=== PATIENT | female | born 1950 | race Caucasian/White ===

== ENCOUNTER 2020-05-20 06:14 | Inpatient (IN) | payer MEDICARE, OTHER, SELFPAY ==
[2020-05-20] VITALS (39 sets, daily range): BP systolic 114–162; BP diastolic 55–86; PULSE 74–114; RESP 10–26; TEMP 36.1–37.3; O2SAT 85–99; BMI 25.6; BMI 26.3
--- NOTE | 2020-05-20 06:57 | ED_ITS ---
HPI - Abdominal Pain General Chief Complaint: Abdominal Pain Stated Complaint: Severe Stomach pain Time Seen by Provider: 05/20/20 06:40 Source: patient Mode of arrival: Ambulatory Limitations: no limitations History of Present Illness HPI narrative: The patient presents with a one-week history of lower abdominal pain. Symptoms started at home about 1 week ago, she had just returned from a road trip with her granddaughters. She encountered no one with similar symptoms on the trip of which she is aware. Her family has not been ill. She now has lower abdominal cramping with nausea. She has not have a significant amount of vomiting. She is still eating and drinking, but decreased. There is no discomfort when she is eating. The cramping is in the suprapubic at region. She has some associated low back pain, especially when the symptoms started. The back pain is less at this time. She does have diarrhea, she is still having bowel movements. Her bowel movement has changed. She has small BMs coming out, small balls. She has no evidence of GI bleed. She is not having dysuria, she has intermittent color changes to her urine. She has having normal urine but occasionally rust colored urine out. She has no history of kidney stones. She has no history of renal disease. She has no history of abdominal or pelvic surgeries. She has no chronic GI problems. She is on meds for hypertension and hypothyroidism. She has no history of diabetes, she has no history of vascular disease. She denies fever, chills or sweats with these symptoms. Related Data Previous Rx's Medication Instructions Recorded cephalexin [Keflex] 500 mg PO BID 5 Days #0 cap 10/13/17 Allergies Allergy/AdvReac Type Severity Reaction Status Date / Time No Known Drug Allergies Allergy Verified 05/20/20 12:07 Review of Systems Review of Systems ROS Unobtainable: All systems reviewed & are unremarkable except as noted in HPI and below Constitutional Constitutional: Denies chills, Denies fatigue, Denies fever(s) and Denies weakness Eyes Comments: No complaints ENT Ears, Nose, Mouth, and Throat: Denies neck pain and Denies sore throat Cardiovascular Cardiovascular: Denies chest pain, Denies irregular heart rhythm, Denies lightheadedness, Denies dyspnea and Denies dyspnea on exertion Respiratory Respiratory: Denies cough, Denies dyspnea, Denies dyspnea on exertion and Denies wheezing Gastrointestinal Gastrointestinal: Reports as per HPI, Reports abdominal pain, Reports change in bowel habits, Denies diarrhea, Denies nausea and Denies vomiting Genitourinary Genitourinary: Denies difficulty urinating and Denies dysuria Genitourinary: Denies dysuria Musculoskeletal Musculoskeletal: Denies back pain, Denies neck pain and Denies numbness Integumentary/Breasts Skin/Breast: Denies erythema and Denies rash Neurologic Neurologic: Denies confusion, Denies numbness and Denies weakness Psychiatric Psychiatric: Denies anxiety and Denies confusion Endocrine Endocrine: Denies fatigue and Denies flushing Allergic/Immunologic Allergic/Immunologic: Denies wheezing Patient History Medical History (Updated 05/20/20 @ 13:25 by Fransico Vogel MD) Hypertension (Acute) Hypothyroidism (Acute) Neck discomfort (Inactive) No active medical problems (Inactive) Social History Smoking Status: Never smoker Exam Initial Vital Signs Initial Vital Signs: Vital Signs Temperature 98.3 F 05/20/20 06:20 Pulse Rate 89 05/20/20 06:20 Respiratory Rate 16 05/20/20 06:20 Blood Pressure 135/63 05/20/20 06:20 Pulse Oximetry 99 05/20/20 06:20 Const General: cooperative, healthy appearing and well developed Nutritional Appearance: well nourished [facility] Head: normocephalic and atraumatic Mouth: oral mucosae normal Throat: posterior oropharynx normal Eyes Conjunctivae: conjunctivae normal Sclera: sclerae normal Neck Neck: supple and No lymphadenopathy Chest Chest: normal inspection of the chest Resp Effort & Inspection: normal respiratory effort and able to speak in complete sentences Auscultation: clear to auscultation bilaterally, no rales, no rhonchi and no wheezes Cardio Rate: regular rate Rhythm: regular rhythm Heart Sounds: no click, no gallops, no murmurs and no rubs Pulses: normal peripheral pulses GI Other: Lower abdominal tenderness. Tender in the right lower quadrant and suprapubic area with guarding but no rebound. LLQ tenderness without guarding or rebound. No distention. No masses. Normal bowel sounds. Back/Spine/Pelvis Back: No CVA tenderness Skin General: no rashes or lesions noted and No petechiae Neuro General: patient alert, patient oriented x3, gait normal and no focal motor deficits Speech: speech normal Extrem General: full ROM, no pedal edema and no calf tenderness Psych Appearance: well kempt Mental Status: mental status grossly normal Course Course Course Narrative: CT revealed perforated diverticulitis with abscess. Zosyn was started. She has been receiving Zofran for nausea. She is currently comfortable. Vital status are stable. Surgery, , was consulted. The patient will be admitted for ongoing care. Orders Ordered: ED Orders 05/20/20 06:47 EKG-12 Lead Stat 05/20/20 06:51 Complete Blood Count AUTO DIFF Stat Comprehensive Metabolic Panel Stat Lactate (Lactic Acid) Stat Lipase Stat Troponin I Stat 05/20/20 06:54 Ictotest Urine Stat Urinalysis and Microscopic Stat 05/20/20 07:52 Blood Culture Stat 05/20/20 08:17 CT abdomen pelvis w con Stat Hydromorphone HCl (Dilaudid) 0.5 mg IV Q15MIN PRN PRN Reason: pain Last Admin: 05/20/20 07:00 Dose: 0.5 mg Documented by: DAVID Sodium Chloride (Normal Saline 0.9%) 1,000 mls @ 150 mls/hr IV CONT MOISES Last Admin: 05/20/20 13:07 Dose: 150 mls/hr Documented by: JONAH Discontinued Medications Hydromorphone HCl (Dilaudid) 1 mg IV NOW ONE Stop: 05/20/20 12:02 Last Admin: 05/20/20 12:28 Dose: 1 mg Documented by: JONAH Sodium Chloride (Normal Saline 0.9%) 1,000 mls @ 1,000 mls/hr IV BOLUS ONE Stop: 05/20/20 07:43 Last Infusion: 05/20/20 08:53 Dose: 0 mls/hr Documented by: Admin: 05/20/20 07:00 Dose: 1,000 mls/hr Documented by: DAVID Piperacillin/Tazobactam/Dextrose (Zosyn) 4.5 gm in 100 mls @ 200 mls/hr IV NOW ONE Stop: 05/20/20 12:33 Last Admin: 05/20/20 12:28 Dose: 200 mls/hr Documented by: JONAH Ondansetron HCl (Zofran) 4 mg IV NOW ONE Stop: 05/20/20 06:45 Last Admin: 05/20/20 07:00 Dose: 4 mg Documented by: DAVID Vital Signs Vital signs: Vital Signs - 8 hr 05/20/20 06:20 05/20/20 07:01 05/20/20 07:30 Temperature 98.3 F Pulse Rate 89 89 77 Respiratory Rate 16 Blood Pressure 135/63 Pulse Oximetry 99 99 97 05/20/20 07:31 05/20/20 07:35 05/20/20 08:00 Temperature Pulse Rate 80 82 75 Respiratory Rate Blood Pressure 123/64 124/62 140/60 Pulse Oximetry 96 97 96 05/20/20 08:30 05/20/20 09:01 05/20/20 09:02 Temperature Pulse Rate 80 80 83 Respiratory Rate Blood Pressure 141/65 H 150/70 H Pulse Oximetry 98 98 99 05/20/20 09:25 05/20/20 09:30 05/20/20 09:31 Temperature Pulse Rate 87 80 Respiratory Rate 18 Blood Pressure 121/56 L Pulse Oximetry 95 96 05/20/20 10:01 05/20/20 10:30 05/20/20 10:55 Temperature Pulse Rate 85 74 86 Respiratory Rate Blood Pressure 126/86 126/86 Pulse Oximetry 92 94 97 05/20/20 11:00 05/20/20 11:30 05/20/20 12:00 Temperature Pulse Rate 81 75 80 Respiratory Rate 16 Blood Pressure 123/73 130/63 Pulse Oximetry 95 95 98 05/20/20 12:01 Temperature Pulse Rate 89 Respiratory Rate Blood Pressure 162/76 H Pulse Oximetry 98 MDM - Abdominal Pain Lab Data Result diagrams: 05/20/20 06:51 05/20/20 06:51 Labs: Lab Results 05/20/20 05/20/20 05/20/20 Range/Units 06:51 06:51 06:51 WBC 14.3 H (4.5-11.0) X10^3/uL RBC 4.46 (4.0-5.2) X10^6/uL Hgb 13.1 (12.0-16.0) g/dL Hct 39.3 (36-46) % MCV 88.0 (80-100) fL MCH 29.4 (26-34) PG MCHC 33.4 (30-36) % RDW 13.6 (11.6-14.8) % Plt Count 355 (150-400) X10^3/uL Neut % (Auto) 83.2 H (50-75) % Lymph % (Auto) 9.0 L (25-40) % [place] % (Auto) 7.1 (3-14) % Eos % (Auto) 0.2 L (2-4) % Baso % (Auto) 0.5 (0-2) % Neut # (Auto) 67392 H (7363-8166) /uL Lymph # (Auto) 1300 (2582-9978) /uL [place] # (Auto) 1000 H (0-900) /uL Eos # (Auto) 0 (0-450) /uL Baso # (Auto) 100 (0-100) /uL Sodium 137 (137-145) mmol/L Potassium 3.9 (3.4-5.1) mmol/L Chloride 102 (98-107) mmol/L Carbon Dioxide 26 (22-32) mmol/L BUN 15 (7-17) mg/dL Creatinine 0.87 (0.52-1.04) mg/dL Estimated GFR > 60.0 (>60) mL/min BUN/Creatinine Ratio 17.2 (6-22) Glucose 134 H (80-110) mg/dL Lactate 1.3 (0.7-2.1) mmol/L Calcium 10.1 (8.4-10.2) mg/dL Total Bilirubin 1.0 (0.2-1.3) mg/dL AST 32 (14-36) IU/L ALT 54 H (<35) IU/L Alkaline Phosphatase 310 H (38-126) U/L Troponin I < 0.012 (0.01-0.034) ng/mL Total Protein 7.3 (6.3-8.2) g/dL Albumin 3.8 (3.5-5.0) g/dL Globulin 3.5 (1.7-4.1) g/dL Albumin/Globulin Ratio 1.1 (1.0-2.8) Lipase 28 (23-300) U/L Urine Color Urine Appearance Urine pH (4.5-8.0) Ur Specific [place] (1.000-1.035) Urine Protein (Negative) Urine Glucose (UA) (Negative) g/dL Urine Ketones (NEGATIVE) Urine Occult Blood (Negative) Urine Nitrate (Negative) Urine Bilirubin (NEGATIVE) Ur Bilirubin Confirm (Negative) Urine Urobilinogen (0.2) E.U./dL Ur Leukocyte Esterase (NEGATIVE) Urine RBC (0-5/HPF) Urine WBC (0-5/HPF) Ur Squamous Epith Cells (0-5/HPF) Urine Bacteria (None) Urine Mucus (Negative) Ur Culture Indicated? Micro UA Comment 05/20/20 Range/Units 06:54 WBC (4.5-11.0) X10^3/uL RBC (4.0-5.2) X10^6/uL Hgb (12.0-16.0) g/dL Hct (36-46) % MCV (80-100) fL MCH (26-34) PG MCHC (30-36) % RDW (11.6-14.8) % Plt Count (150-400) X10^3/uL Neut % (Auto) (50-75) % Lymph % (Auto) (25-40) % [place] % (Auto) (3-14) % Eos % (Auto) (2-4) % Baso % (Auto) (0-2) % Neut # (Auto) (4677-0263) /uL Lymph # (Auto) (6829-9293) /uL [place] # (Auto) (0-900) /uL Eos # (Auto) (0-450) /uL Baso # (Auto) (0-100) /uL Sodium (137-145) mmol/L Potassium (3.4-5.1) mmol/L Chloride (98-107) mmol/L Carbon Dioxide (22-32) mmol/L BUN (7-17) mg/dL Creatinine (0.52-1.04) mg/dL Estimated GFR (>60) mL/min BUN/Creatinine Ratio (6-22) Glucose (80-110) mg/dL Lactate (0.7-2.1) mmol/L Calcium (8.4-10.2) mg/dL Total Bilirubin (0.2-1.3) mg/dL AST (14-36) IU/L ALT (<35) IU/L Alkaline Phosphatase (38-126) U/L Troponin I (0.01-0.034) ng/mL Total Protein (6.3-8.2) g/dL Albumin (3.5-5.0) g/dL Globulin (1.7-4.1) g/dL Albumin/Globulin Ratio (1.0-2.8) Lipase (23-300) U/L Urine Color Dark yellow Urine Appearance Clear Urine pH 5.5 (4.5-8.0) Ur Specific [place] 1.025 (1.000-1.035) Urine Protein 1+ H (Negative) Urine Glucose (UA) Negative (Negative) g/dL Urine Ketones 1+ H (NEGATIVE) Urine Occult Blood 1+ H (Negative) Urine Nitrate Negative (Negative) Urine Bilirubin 1+ H (NEGATIVE) Ur Bilirubin Confirm Negative (Negative) Urine Urobilinogen 0.2 (0.2) E.U./dL Ur Leukocyte Esterase Negative (NEGATIVE) Urine RBC 1-5/hpf (0-5/HPF) Urine WBC 5-10/hpf H (0-5/HPF) Ur Squamous Epith Cells 10-30 /hpf H (0-5/HPF) Urine Bacteria Moderate (10-30) H (None) Urine Mucus 3+ H (Negative) Ur Culture Indicated? Culture not indicate Micro UA Comment Imaging Data CT scan - abdomen/pelvis: Radiologist's Impression: [phone] Fransico Vogel MD Find Patient Imaging - Nereida Ruby 69 F 1950 ACTIVITY DATE EXAM STATUS AUTHOR 05/20/20 08:17 Signed Call,[place] [address] CT Scan Report Signed Patient: Jacque RubyR#: [id number] : 9Acct:[id number] Age/Sex: 69 / FDate of Service: 05/20/20 Loc: ED Accession Number: [id number] Procedure: CT abdomen pelvis w con Ordering Provider: Nicole Vallejo MD PROCEDURE: CT ABDOMEN PELVIS W CON INDICATIONS: severe abd pain TECHNIQUE: After the administration of oral and intravenous contrast, 5 mm thick sections acquired from the diaphragms to the symphysis. 5 mm thick coronal and sagittal reformats were performed. For radiation dose reduction, the following was used: automated exposure control, adjustment of mA and/or kV according to patient size. COMPARISON: None. FINDINGS: Image quality: Excellent. ABDOMEN: Lung bases: Lung bases are clear. Heart size is normal. Solid organs: Liver is normal in size. Probable hepatic steatosis. Gallbladder is unremarkable. Biliary system is non-dilated. Pancreas enhances normally. Spleen is normal in size and enhancement. No adrenal nodules. Kidneys are normal in size and enhancement, without hydronephrosis. There is a 7 mm calculus in the left renal pelvis, (4/40). This does not appear to be obstructive. Peritoneum and bowel: A bilobed extraluminal fluid collection in the midline pelvis measuring 5.8 x 4.9 x 4.7 cm, estimated volume of 69 cc; and left paramedian pelvis adjacent to the sigmoid colon measuring 3.1 x 2.9 x 2.3 cm, estimated volume of 11 cc. The larger component of this collection appears to be walled off. There is gas within these collections. There is extensive surrounding inflammatory change. The adjacent loops of small bowel are dilated. The abscess abuts the urinary bladder. There is a small amount of scattered free fluid in the abdomen and pelvis. There is sigmoid colon diverticuli. The appendix is normal in caliber. Stomach is within normal limits. Nodes and vessels: No retroperitoneal or mesenteric adenopathy. Aorta and inferior vena cava are normal in caliber. Miscellaneous: No ventral hernias. PELVIS: Genitourinary: Bladder is partially distended. The abscess abuts the urinary bladder. No gas in the urinary bladder. The uterus is absent. Miscellaneous: No inguinal hernias or adenopathy. Bones: No suspicious bony lesions. No vertebral body compression fractures. IMPRESSION: 1. Bilobed extraluminal fluid collection in the pelvis measuring 5.8 cm and 3.1 cm containing gas and with extensive surrounding inflammatory change. Findings consistent with a moderate sized abscess. Suspect that this abscess is due to diverticuli tis and small sigmoid colonic perforation. 2. Dilated loops of small bowel in the lower abdomen. This is favored to be due to ileus. Additional incidental findings: Non-obstructing left kidney stone measuring 7 mm. Probable hepatic steatosis. Dictated by: Shalom Harrell M.D. on 05/20/2020 at 9:08 Approved by: Shalom Harrell M.D. on 05/20/2020 at 9:24 Critical Care Time Critical Care Time Critical Care Time: Yes Total Critical Care Time: 50 Attestation: Care included initial assessment, multiple clinical decisions, evaluation of lab, EKG and radiology data, review the data with the patient and eventually consultation with surgery. Discharge Plan Departure Patient Disposition: Admitted to Surgery Clinical Impression: Diverticulitis of intestine with perforation and abscess Qualifiers: Diverticulitis site: unspecified part of intestinal tract Diverticulitis bleeding: without bleeding Qualified Code(s): K57.80 - Diverticulitis of intestine, part unspecified, with perforation and abscess without bleeding Admit Date/Time: 05/20/20 12:34 Admit Provider: Lesley Parra
[2020-05-20] MEDS: ONDANSETRON 4 MG/2 ML INJ IV (07:00)
[2020-05-20] MEDS: HYDROMORPHONE 0.5 MG INJ IV (07:00)
[2020-05-20] MEDS: SODIUM CHLORIDE 0.9% 1,000 ML 1000 ML IV (07:00)
[2020-05-20 07:02] LABS: Appearance Urine UA CLEAR; Bilirubin Urine UA 1+ (NEGATIVE); Glucose Urine UA NEGATIVE (Negative); Ketones Urine UA 1+ (NEGATIVE); Leukocyte Esterase Urine UA NEGATIVE (NEGATIVE); Nitrite Urine UA NEGATIVE (Negative); Occult Blood Urine UA 1+ (Negative); Protein Urine UA 1+ (Negative); Specific Gravity Urine UA 1.025 (1.000-1.035); Urobilinogen Urine UA 0.2 E.U./dL (0.2)
[2020-05-20 07:03] LABS: Color Urine UA Dark Yellow; pH Urine UA 5.5 (4.5-8.0)
[2020-05-20 07:04] LABS: Add Manual Diff / Slide Review NO; Basophils Absolute Auto 100 /uL (0-100); Basophils Percent Auto 0.5 % (0-2); Eosinophils Absolute Auto 0 /uL (0-450); Eosinophils Percent Auto 0.2 % (2-4); Hematocrit 39.3 % (36-46); Hemoglobin 13.1 g/dL (12.0-16.0); Lymphocytes Absolute Auto 1300 /uL (1100-4500); Mean Corpuscular HGB Conc 33.4 % (30-36); Mean Corpuscular Hemoglobin 29.4 PG (26-34); Monocytes Absolute Auto 1000 /uL (0-900); Monocytes Percent Auto 7.1 % (3-14); Neutrophils Absolute Auto 11900 /uL (1500-7000); Neutrophils Percent Auto 83.2 % (50-75); Platelet Count 355 X10^3/uL (150-400); Red Blood Cell Count 4.46 X10^6/uL (4.0-5.2); Red Cell Distribution Width 13.6 % (11.6-14.8); White Blood Cell Count 14.3 X10^3/uL (4.5-11.0)
[2020-05-20 07:09] LABS: Alanine Aminotransferase 54 IU/L (<35); Albumin 3.8 g/dL (3.5-5.0); Albumin Globulin Ratio 1.1 (1.0-2.8); Alkaline Phosphatase 310 U/L (38-126); Aspartate Aminotransferase 32 IU/L (14-36); BUN Creatinine Ratio 17.2 (6-22); Blood Urea Nitrogen 15 mg/dL (7-17); Calcium 10.1 mg/dL (8.4-10.2); Carbon Dioxide 26 mmol/L (22-32); Chloride 102 mmol/L (98-107); Estimated Glomerular Filt Rate > 60.0 mL/min (>60); Globulin 3.5 g/dL (1.7-4.1); Glucose 134 mg/dL (80-110); HEMOLYSIS < 15 (0-50); Lipase 28 U/L (23-300); Potassium 3.9 mmol/L (3.4-5.1); Sodium 137 mmol/L (137-145); Total Protein 7.3 g/dL (6.3-8.2)
[2020-05-20 07:10] LABS: Lactate (Lactic Acid) 1.3 mmol/L (0.7-2.1)
[2020-05-20 07:13] LABS: Bacteria Urine Moderate (10-30); Ictotest Urine Negative (Negative); Mucus Urine 3+ (Negative); RBC Urine 1-5/HPF (0-5/HPF); Squamous Epithelial Cell Urine 10-30 /HPF (0-5/HPF); WBC Urine 5-10/HPF (0-5/HPF)
[2020-05-20 07:21] LABS: Troponin I < 0.012 ng/mL (0.01-0.034)
--- NOTE | 2020-05-20 07:59 | PC.NURSE ---
Neville leaving for a bit, can be reached at [phone] if needed prior to his return.
--- NOTE | 2020-05-20 08:17 | DI.CT.S_ITS ---
PROCEDURE: CT ABDOMEN PELVIS W CON INDICATIONS: severe abd pain TECHNIQUE: After the administration of oral and intravenous contrast, 5 mm thick sections acquired from the diaphragms to the symphysis. 5 mm thick coronal and sagittal reformats were performed. For radiation dose reduction, the following was used: automated exposure control, adjustment of mA and/or kV according to patient size. COMPARISON: None. FINDINGS: Image quality: Excellent. ABDOMEN: Lung bases: Lung bases are clear. Heart size is normal. Solid organs: Liver is normal in size. Probable hepatic steatosis. Gallbladder is unremarkable. Biliary system is non-dilated. Pancreas enhances normally. Spleen is normal in size and enhancement. No adrenal nodules. Kidneys are normal in size and enhancement, without hydronephrosis. There is a 7 mm calculus in the left renal pelvis, (4/40). This does not appear to be obstructive. Peritoneum and bowel: A bilobed extraluminal fluid collection in the midline pelvis measuring 5.8 x 4.9 x 4.7 cm, estimated volume of 69 cc; and left paramedian pelvis adjacent to the sigmoid colon measuring 3.1 x 2.9 x 2.3 cm, estimated volume of 11 cc. The larger component of this collection appears to be walled off. There is gas within these collections. There is extensive surrounding inflammatory change. The adjacent loops of small bowel are dilated. The abscess abuts the urinary bladder. There is a small amount of scattered free fluid in the abdomen and pelvis. There is sigmoid colon diverticuli. The appendix is normal in caliber. Stomach is within normal limits. Nodes and vessels: No retroperitoneal or mesenteric adenopathy. Aorta and inferior vena cava are normal in caliber. Miscellaneous: No ventral hernias. PELVIS: Genitourinary: Bladder is partially distended. The abscess abuts the urinary bladder. No gas in the urinary bladder. The uterus is absent. Miscellaneous: No inguinal hernias or adenopathy. Bones: No suspicious bony lesions. No vertebral body compression fractures. IMPRESSION: 1. Bilobed extraluminal fluid collection in the pelvis measuring 5.8 cm and 3.1 cm containing gas and with extensive surrounding inflammatory change. Findings consistent with a moderate sized abscess. Suspect that this abscess is due to diverticulitis and small sigmoid colonic perforation. 2. Dilated loops of small bowel in the lower abdomen. This is favored to be due to ileus. Additional incidental findings: Non-obstructing left kidney stone measuring 7 mm. Probable hepatic steatosis. Dictated by: Shalom Harrell M.D. on 05/20/2020 at 9:08 Approved by: Shalom Harrell M.D. on 05/20/2020 at 9:24
[2020-05-20] MEDS: HYDROMORPHONE 1 MG INJ IV (12:28)
[2020-05-20] MEDS: PIPERACILLIN-TAZO 4.5 GM/100 ML FROZ.PIGGY IV (12:28)
--- NOTE | 2020-05-20 12:56 | P.HP_ITS ---
History of Present Illness History of Present Illness Date Patient Seen: 05/20/20 Time Patient Seen: 12:57 Chief complaint: Severe Stomach pain Narrative: This is a 69-year-old woman with history of hypertension, hypothyroid, and diverticulosis, who came into the ER today after 1 week of abdominal pain, which became much more severe last night. Her pain initially was in the lower abdomen, predominantly on the left. Today she started to notice more severe mid abdominal pain and lower abdominal pain. In the ER she was found to have an elevated white blood cell count, and a CT scan which showed an interloop abscess between loops of small bowel which appeared to be emanating from the sigmoid colon, consistent with perforated sigmoid diverticulitis and a contained abscess between loops of bowel. The radiologist was unable to drain this percutaneously, and so I was consulted for surgical drainage and management. The patient says her last colonoscopy was 1 year ago, and she was told she just had diverticulosis. She has from time to time had diverticulitis symptoms, which is usually managed at home by drinking water and eating a bland diet, without antibiotics. She continues to pass stool today, which is mostly diarrhea. She vomited last night after eating. She has had clear liquids today including oral contrast for her CT scan. ROS: Constitutional: Denies chills, Denies fatigue, Denies fever(s) and Denies weakness Ears, Nose, Mouth, and Throat: Denies neck pain and Denies sore throat Cardiovascular: Denies chest pain, Denies irregular heart rhythm, Denies lightheadedness, Denies dyspnea and Denies dyspnea on exertion Respiratory: Denies cough, Denies dyspnea, Denies dyspnea on exertion and Denies wheezing Gastrointestinal: Reports as per HPI, Reports abdominal pain, Reports change in bowel habits, Denies diarrhea, Denies nausea and Denies vomiting Genitourinary: Denies difficulty urinating and Denies dysuria Musculoskeletal: Denies back pain, Denies neck pain and Denies numbness Skin/Breast: Denies erythema and Denies rash Neurologic: Denies confusion, Denies numbness and Denies weakness Psychiatric: Denies anxiety and Denies confusion Endocrine: Denies fatigue and Denies flushing Allergic/Immunologic: Denies wheezing PE: GENERAL: Alert, mild distress. Appears stated age. Answers questions promptly and appropriately. Vital signs noted. HENT: Normocephalic, atraumatic. Hearing intact. EYES: Conjunctiva pink, sclera white, no periorbital swelling. CARDIOVASCULAR: Regular rate. No pedal edema. RESPIRATORY: Non-tachypneic, breathing comfortably on room air. GASTROINTESTINAL: Abdomen soft, mildly distended, moderately tender to palpation in bilateral lower quadrants left greater than right GENITALURINARY: No flank tenderness. MUSCULOSKELETAL: Equal tone and mass bilaterally. SKIN: Warm, dry, soft, appropriate color for ethnicity. No other lesions, rashes, or wounds. NEURO: Alert and Oriented X 3. No gross sensory deficits, or cognitive issues. PSYCH: Appropriate affect and mood. Patient History Medical History (Updated 05/20/20 @ 15:50 by Lesley Parra MD) Hypertension (Acute) Hypothyroidism (Acute) Neck discomfort (Inactive) No active medical problems (Inactive) Family & Social History Safety & Behavioral: Feels Safe in Current Yes Environment Been Physically Hurt or No Threatened By a Person Tobacco & Substance use: Smoking Status Never smoker Substance Use Type does not use Meds Home Medications and Allergies Home Medications Medication Instructions Recorded Confirmed Type amlodipine 2.5 mg PO DAILY 05/20/20 05/20/20 History levothyroxine 88 mcg PO DAILY 05/20/20 05/20/20 History lisinopril 20 mg PO DAILY 05/20/20 05/20/20 History Allergies Allergy/AdvReac Type Severity Reaction Status Date / Time No Known Drug Allergies Allergy Verified 05/20/20 12:07 Exam Vital Signs (past 8 hours): - 05/20/20 06:20 05/20/20 07:01 05/20/20 07:30 Temperature 98.3 F Pulse Rate 89 89 77 Respiratory Rate 16 Blood Pressure 135/63 Pulse Oximetry 99 99 97 05/20/20 07:31 05/20/20 07:35 05/20/20 08:00 Temperature Pulse Rate 80 82 75 Respiratory Rate Blood Pressure 123/64 124/62 140/60 Pulse Oximetry 96 97 96 05/20/20 08:30 05/20/20 09:01 05/20/20 09:02 Temperature Pulse Rate 80 80 83 Respiratory Rate Blood Pressure 141/65 H 150/70 H Pulse Oximetry 98 98 99 05/20/20 09:25 05/20/20 09:30 05/20/20 09:31 Temperature Pulse Rate 87 80 Respiratory Rate 18 Blood Pressure 121/56 L Pulse Oximetry 95 96 05/20/20 10:01 05/20/20 10:30 05/20/20 10:55 Temperature Pulse Rate 85 74 86 Respiratory Rate Blood Pressure 126/86 126/86 Pulse Oximetry 92 94 97 05/20/20 11:00 05/20/20 11:30 05/20/20 12:00 Temperature Pulse Rate 81 75 80 Respiratory Rate 16 Blood Pressure 123/73 130/63 Pulse Oximetry 95 95 98 05/20/20 12:01 Temperature Pulse Rate 89 Respiratory Rate Blood Pressure 162/76 H Pulse Oximetry 98 Oxygen Delivery Method Room Air Objective Imaging CT scan - abdomen: My impression: Contained abscess between loops of small bowel; sigmoid diveritculitis Radiologist's impression: [address] [address] [address] Scan Report Signed Patient: Regino Ruby#: [id number] : 9Acct:[id number] Age/Sex: 69 / FDate of Service: 05/20/20 Loc: ED Accession Number: [id number] Procedure: CT abdomen pelvis w con Ordering Provider: Nicole Vallejo MD PROCEDURE: CT ABDOMEN PELVIS W CON INDICATIONS: severe abd pain TECHNIQUE: After the administration of oral and intravenous contrast, 5 mm thick sections acquired from the diaphragms to the symphysis. 5 mm thick coronal and sagittal reformats were performed. For radiation dose reduction, the following was used: automated exposure control, adjustment of mA and/or kV according to patient size. COMPARISON: None. FINDINGS: Image quality: Excellent. ABDOMEN: Lung bases: Lung bases are clear. Heart size is normal. Solid organs: Liver is normal in size. Probable hepatic steatosis. Gallbladder is unremarkable. Biliary system is non-dilated. Pancreas enhances normally. S pleen is normal in size and enhancement. No adrenal nodules. Kidneys are normal in size and enhancement, without hydronephrosis. There is a 7 mm calculus in the left renal pelvis, (4/40). This does not appear to be obstructive. Peritoneum and bowel: A bilobed extraluminal fluid collection in the midline pelvis measuring 5.8 x 4.9 x 4.7 cm, estimated volume of 69 cc; and left paramedian pel vis adjacent to the sigmoid colon measuring 3.1 x 2.9 x 2.3 cm, estimated volume of 11 cc. The larger component of this collection appears to be walled off. There is gas within these collections. There is extensive surrounding inflammatory change. The adjacent loops of small bowel are dilated. The abscess abuts the urinary bladder. There is a small amount of scattered free fluid in the abdomen and pelvis. There is sigmoid colon diverticuli. The appendix is normal in caliber. Stomach is within normal limits. Nodes and vessels: No retroperitoneal or mesenteric adenopathy. Aorta and inferior vena cava are normal in caliber. Miscellaneous: No ventral hernias. PELVIS: Genitourinary: Bladder is partially distended. The abscess abuts the urinary bladder. No gas in the urinary bladder. The uterus is absent. Miscellaneous: No inguinal hernias or adenopathy. Bones: No suspicious bony lesions. No vertebral body compression fractures. IMPRESSION: 1. Bilobed extraluminal fluid collection in the pelvis measuring 5.8 cm and 3.1 cm containing gas and with extensive surrounding inflammatory change. Findings consistent with a moderate sized abscess. Suspect that this abscess is due to diverticulitis and small sigmoid colonic perforation. 2. Dilated loops of small bowel in the lower abdomen. This is favored to be due to ileus. Additional incidental findings: Non-obstructing left kidney stone measuring 7 mm. Probable hepatic steatosis. Dictated by: Shalom Harrell M.D. on 05/20/2020 at 9:08 Approved by: Shalom Harrell M.D. on 05/20/2020 at 9:24 Labs Result Diagrams: 05/20/20 06:51 05/20/20 06:51 Labs: Laboratory Results - last 24 hr 05/20/20 05/20/20 05/20/20 06:51 06:51 06:51 WBC 14.3 H RBC 4.46 Hgb 13.1 Hct 39.3 MCV 88.0 MCH 29.4 MCHC 33.4 RDW 13.6 Plt Count 355 Neut % (Auto) 83.2 H Lymph % (Auto) 9.0 L [place] % (Auto) 7.1 Eos % (Auto) 0.2 L Baso % (Auto) 0.5 Neut # (Auto) 17269 H Lymph # (Auto) 1300 [place] # (Auto) 1000 H Eos # (Auto) 0 Baso # (Auto) 100 Sodium 137 Potassium 3.9 Chloride 102 Carbon Dioxide 26 BUN 15 Creatinine 0.87 Estimated GFR > 60.0 BUN/Creatinine Ratio 17.2 Glucose 134 H Lactate 1.3 Calcium 10.1 Total Bilirubin 1.0 AST 32 ALT 54 H Alkaline Phosphatase 310 H Troponin I < 0.012 Total Protein 7.3 Albumin 3.8 Globulin 3.5 Albumin/Globulin Ratio 1.1 Lipase 28 Urine Color Urine Appearance Urine pH Ur Specific [place] Urine Protein Urine Glucose (UA) Urine Ketones Urine Occult Blood Urine Nitrate Urine Bilirubin Ur Bilirubin Confirm Urine Urobilinogen Ur Leukocyte Esterase Urine RBC Urine WBC Ur Squamous Epith Cells Urine Bacteria Urine Mucus Ur Culture Indicated? Micro UA Comment 05/20/20 06:54 WBC RBC Hgb Hct MCV MCH MCHC RDW Plt Count Neut % (Auto) Lymph % (Auto) [place] % (Auto) Eos % (Auto) Baso % (Auto) Neut # (Auto) Lymph # (Auto) [place] # (Auto) Eos # (Auto) Baso # (Auto) Sodium Potassium Chloride Carbon Dioxide BUN Creatinine Estimated GFR BUN/Creatinine Ratio Glucose Lactate Calcium Total Bilirubin AST ALT Alkaline Phosphatase Troponin I Total Protein Albumin Globulin Albumin/Globulin Ratio Lipase Urine Color Dark yellow Urine Appearance Clear Urine pH 5.5 Ur Specific [place] 1.025 Urine Protein 1+ H Urine Glucose (UA) Negative Urine Ketones 1+ H Urine Occult Blood 1+ H Urine Nitrate Negative Urine Bilirubin 1+ H Ur Bilirubin Confirm Negative Urine Urobilinogen 0.2 Ur Leukocyte Esterase Negative Urine RBC 1-5/hpf Urine WBC 5-10/hpf H Ur Squamous Epith Cells 10-30 /hpf H Urine Bacteria Moderate (10-30) H Urine Mucus 3+ H Ur Culture Indicated? Culture not indicate Micro UA Comment Assessment & Plan Assessment and plan (1) Hypothyroidism: Status: Acute (2) Hypertension: Status: Acute (3) Diverticulitis of intestine with perforation and abscess: Problem details: This is a 69-year-old woman with history of diverticulosis, hypertension, hypothyroid, who presents with a week of abdominal pain, and an abscess between loops of small bowel found on her CT scan, which appears to be related to perforated diverticulitis. I had a long discussion with the patient and her regarding the possible scenarios that may take place in the operating room. My hope is to drain the abscess, and leave a drain, without doing much more if possible. Explained that it is possible that there may be injured or threatened bowel in the process of trying to open up the abscess, and there may be an ongoing perforation of the colon which needs to be controlled, the may be a need for bowel resection, open surgery, ileostomy, or colostomy. This was all discussed in detail with the patient and her in the ER, and again in the preop area. Risk and benefit of laparoscopic possible open abscess drainage and drain placement, possible bowel resection, possible ostomy. Risk of bleeding, infection, damage to nearby structures, need for additional procedures. The patient desires to proceed with surgery. Plan: To OR for laparoscopic possible open abscess drainage, possible bowel resection possible ostomy Admit to hospital for IV fluids, IV antibiotics, pain control, infection management Qualifiers: Diverticulitis bleeding: without bleeding Diverticulitis site: unspecified part of intestinal tract Qualified Code(s): K57.80 - Diverticulitis of intestine, part unspecified, with perforation and abscess without bleeding Status: Acute (4) H/O: hysterectomy: Status: Acute (5) Hx of ectopic : Status: Acute (6) Diverticulosis: Status: Acute
[2020-05-20] MEDS: SODIUM CHLORIDE 0.9% 1,000 ML 150 ML IV (13:07)
[2020-05-20 13:50] LABS: COVID19 -Nasal RAPID Negative (Negative)
[2020-05-20] MEDS: LACTATED RINGERS 1,000 ML 42 ML IV ×3 (15:32→17:00)
--- NOTE | 2020-05-20 16:17 | SUR.OPER ---
Supine on padded OR bed, head on pillow, safety belt at thigh, left arm padded and tucked at side. Right arm secured on padded arm oard <90 degrees abduction. Legs uncrossed. Padded footboard in place. Tape over blanket to secure lower legs.
[2020-05-20] MEDS: BUPIVACAINE 0.25% W/ EPI 30 ML VIAL INJ (16:24)
--- NOTE | 2020-05-20 17:28 | PM.OP.1 ---
Operative Date/Time/Diagnoses Date of procedure: 05/20/20 Time of procedure: 17:28 Pre-op diagnosis: intraloop abscess, perforated diverticulitis Post-op diagnosis: same Procedure & Clinicians Procedure: Laparoscopic lysis of adhesions, drainage of abscess, drain placement Same procedure as scheduled: Yes Indications: Pelvic abscess trapped between loops of bowel, associated with diverticulitis Surgeon: Lesley Parra Click Yes if Unassisted: Yes Anesthesia Type: General Operative Notes Findings: Large biliopurulent foul smelling abscess in the pelvis trapped between loops of small bowel and bladder Specimen(s): none sent Applied: drain(s) (two 19 round jeffery drains, one in pelvis and one in abdomen) Estimated Blood Loss (mL): 15 Blood products transfused: none Procedure in detail: The patient was brought into the operating room and placed supine on the OR table. Sequential compression devices were placed on both legs and turned on. Appropriate perioperative antibiotics were given prior to the start of surgery. General anesthesia was induced the patient was intubated. Britt catheter was placed sterilely in the bladder. The abdomen was prepped and draped in sterile fashion. Surgical time-out was conducted. Local anesthetic was injected under the skin just superior to the umbilicus and a 5 mm vertical incision was made at this site. The umbilical stalk was grasped with a Holly and elevated. A Veress needle was passed through the fascia into proper position. The position was tested with a saline drop test which was appropriate for intra-abdominal Veress needle placement. The abdomen was then insufflated in the usual fashion. Once insufflated to 15 mm Hg the Veress needle was removed and a 5 mm optical trocar was placed under direct vision using a 5 mm 30 degree scope. Once the camera was inside the abdomen I took a look around. There was no injury from port placement. Two additional ports were placed in a similar fashion in the left lower quadrant and right mid abdomen. There were dense adhesions of omentum to the anterior abdominal wall that were obscuring review of the pelvis. These adhesions were taken down using cautery, and a [place] grasper. Once he adhesions were down, I evaluated the bowel. The small bowel was quite dilated, and there was a loop of small bowel stuck down in the pelvis. Using a closed blunt grasper I gently teased apart the adhesed loop of bowel from the anterior abdominal wall were they were adherent to the bladder. Once I made a gap between the bowel and the abdominal wall copious foul smelling thick green pus came pouring out. I quickly put the suction in and suctioned out all of the purulent fluid. I took down the rest of the adhesed bowel, and revealed the abscess cavity. I suctioned out the purulent rind from the abscess cavity and any remaining signs of infection. I irrigated with 2 L of saline. I did not see a perforation of the colon, but there was clearly a very thickened sigmoid colon just adjacent to the abscess, consistent with diverticulitis, which is the likely source of perforation and purulence, as suspected on the CT scan. I placed a 19 round Jeffery drain through the left 5 mm port site, and positioned it in the pelvis. I removed the port, and secured the drain to the skin with a 3 0 nylon suture. Placed a 2nd drain in the right port site and positioned it higher up in the abdomen adjacent to the rest of the small bowel. I secured this in place with a 3 0 nylon suture. I then released the pneumoperitoneum, and closed the umbilical skin with 3, 3 0 nylon sutures in the skin. This incision was covered with a Band-Aid. The 2 port sites were dressed with 4x4s and secured with tape. This concluded the procedure. At this point the needle sponge and instrument counts were correct. Britt catheter was removed. The patient was awakened from anesthesia and extubated. The patient was transferred to the postanesthesia care unit in stable condition. Complications: none Post-operative Condition: stable Disposition: PACU Plan for aftercare: transfer to ACU, monitor drains, labs, vitals, continue IV antibiotics, advance diet as tolerated, pain control
[2020-05-20] MEDS: HYDROMORPHONE 2 MG INJ IV ×5 (17:31→18:04)
--- NOTE | 2020-05-20 18:18 | SUR.PHASEI ---
Report called to Edwige.
--- NOTE | 2020-05-20 18:50 | SUR.PHASEI ---
Patient transferred to the floor on 2L o2. Report given to Edwige. VS stable. Abdominal dressing clean, dry, intact. Drains patent x2 with serosanguinous fluid. IV saline locked. Spouse present.
[2020-05-20] MEDS: PIPERACILLIN-TAZO 3.375 GM/50 ML FROZ.PIGGY IV (19:08)
[2020-05-20] MEDS: SODIUM CHLORIDE 0.9% 1,000 ML 100 ML IV (19:08)
[2020-05-20] MEDS: OXYCODONE/ACETAMINOPHEN 5/325 TABLET 1 TAB PO (20:52)
[2020-05-20] MEDS: KETOROLAC 15 MG/ML VIAL IV (20:53)
--- NOTE | 2020-05-20 21:06 | PC.NURSE ---
Pt out of bed to BSC. Unable to void. Return to bed. Pain reported 7 of 10. Educated to pain meds. Percocet and Toradol given. Drains emptied. Pt reported noticeable increase in pain with right drain bulb compressed and plugged. Assist to position for comfort. Call light in reach.
[2020-05-20] MEDS: FAMOTIDINE 20 MG/50 ML PIGGYBACK 200 MG IV ×2 (21:34→23:45)
[2020-05-21] MEDS: PIPERACILLIN-TAZO 3.375 GM/50 ML FROZ.PIGGY IV ×4 (01:21→18:59)
[2020-05-21] MEDS: OXYCODONE/ACETAMINOPHEN 5/325 TABLET 1 TAB PO ×3 (01:24→13:19)
[2020-05-21 03:00] VITALS: BP 119/69; PULSE 79; RESP 16; O2SAT 94
[2020-05-21 05:42] LABS: Blood Urea Nitrogen 16 mg/dL (7-17); Calcium 8.6 mg/dL (8.4-10.2); Carbon Dioxide 25 mmol/L (22-32); Chloride 103 mmol/L (98-107); Estimated Glomerular Filt Rate > 60.0 mL/min (>60); Glucose 151 mg/dL (80-110); HEMOLYSIS < 15 (0-50); Magnesium 1.9 mg/dL (1.6-2.3); Phosphorous 4.4 mg/dL (2.8-4.1); Potassium 4.4 mmol/L (3.4-5.1); Sodium 134 mmol/L (137-145)
[2020-05-21 05:58] LABS: Hematocrit 31.6 % (36-46); Hemoglobin 10.6 g/dL (12.0-16.0); Mean Corpuscular HGB Conc 33.6 % (30-36); Mean Corpuscular Hemoglobin 29.6 PG (26-34); Platelet Count 285 X10^3/uL (150-400); Red Blood Cell Count 3.59 X10^6/uL (4.0-5.2); Red Cell Distribution Width 13.6 % (11.6-14.8); White Blood Cell Count 11.2 X10^3/uL (4.5-11.0)
[2020-05-21 06:02] LABS: Add Manual Diff / Slide Review YES
[2020-05-21 07:01] LABS: Neutrophils Absolute Manual 9856 /uL (3000-5900); Total Cells Counted 100
[2020-05-21 07:03] LABS: RBC Morphology See; Toxic Granulation Present
--- NOTE | 2020-05-21 07:17 | P.PN_ITS ---
Subjective Subjective Date Patient Seen: 05/21/20 Time Patient Seen: 07:17 Interval history: No acute events over night. Pt denies nausea. Denies flatus or stool output. Pain is well controlled. Exam Vital Signs (past 8 hours): - 05/20/20 23:35 05/21/20 03:00 Temperature 97.0 F L Pulse Rate 81 79 Respiratory Rate 16 16 Blood Pressure 130/75 119/69 Pulse Oximetry 97 94 Oxygen Delivery Method Room Air Oxygen Flow Rate 0 Narrative Exam Narrative: GENERAL: Alert, smiling, comfortable. Appears stated age. Answers questions promptly and appropriately. Vital signs noted. HENT: Normocephalic, atraumatic. Hearing intact. Oral mucosa is pink and moist. EYES: Conjunctiva pink, sclera white, no periorbital swelling. CARDIOVASCULAR: Regular rate. No pedal edema. RESPIRATORY: Non-tachypneic, breathing comfortably on room air. GASTROINTESTINAL: Abdomen soft and non-distended; appropriate TTP for POD#1, OLAMIDE drains murky serosanguinous output, no bilious or stool like output GENITALURINARY: No flank tenderness. MUSCULOSKELETAL: Equal tone and mass bilaterally. SKIN: Warm, dry, soft, appropriate color for ethnicity. No other lesions, rashes, or wounds. NEURO: Alert and Oriented X 3. No gross sensory deficits, or cognitive issues. PSYCH: Appropriate affect and mood. Objective Labs Result Diagrams: 05/21/20 04:50 05/21/20 04:50 Labs: Laboratory Results - last 24 hr 05/20/20 05/20/20 05/21/20 06:51 12:43 04:50 WBC 11.2 H RBC 3.59 L Hgb 10.6 L Hct 31.6 L MCV 88.0 MCH 29.6 MCHC 33.6 RDW 13.6 Plt Count 285 Neut % (Auto) Not Reportable Lymph % (Auto) Not Reportable [place] % (Auto) Not Reportable Eos % (Auto) Not Reportable Baso % (Auto) Not Reportable Lymph # (Auto) Not Reportable [place] # (Auto) Not Reportable Baso # (Auto) Not Reportable Total Counted 100 Seg Neutrophils % 75.0 H Band Neutrophils % 13.0 H Lymphocytes % (Manual) 9.0 L Monocytes % (Manual) 3.0 Neutrophils # (Manual) 9856 H Toxic Granulation Present H RBC Morphology See Sodium Potassium Chloride Carbon Dioxide BUN Creatinine Estimated GFR BUN/Creatinine Ratio Glucose Calcium Phosphorus Magnesium Troponin I < 0.012 COVID-19 PCR Negative 05/21/20 04:50 WBC RBC Hgb Hct MCV MCH MCHC RDW Plt Count Neut % (Auto) Lymph % (Auto) [place] % (Auto) Eos % (Auto) Baso % (Auto) Lymph # (Auto) [place] # (Auto) Baso # (Auto) Total Counted Seg Neutrophils % Band Neutrophils % Lymphocytes % (Manual) Monocytes % (Manual) Neutrophils # (Manual) Toxic Granulation RBC Morphology Sodium 134 L Potassium 4.4 Chloride 103 Carbon Dioxide 25 BUN 16 Creatinine 0.84 Estimated GFR > 60.0 BUN/Creatinine Ratio 19.0 Glucose 151 H Calcium 8.6 Phosphorus 4.4 H Magnesium 1.9 Troponin I COVID-19 PCR Assessment & Plan Assessment and plan (1) Diverticulitis of intestine with perforation and abscess: Problem details: This is a 69-year-old woman with history of diverticulosis, hypertension, hypothyroid, who presents with a week of abdominal pain, and an abscess between loops of small bowel found on her CT scan, which appears to be related to perforated diverticulitis. I had a long discussion with the patient and her regarding the possible scenarios that may take place in the operating room. My hope is to drain the abscess, and leave a drain, without doing much more if possible. Explained that it is possible that there may be injured or threatened bowel in the process of trying to open up the abscess, and there may be an ongoing perforation of the colon which needs to be controlled, the may be a need for bowel resection, open surgery, ileostomy, or colostomy. This was all discussed in detail with the patient and her in the ER, and again in the preop area. Risk and benefit of laparoscopic possible open abscess drainage and drain tobias cement, possible bowel resection, possible ostomy. Risk of bleeding, infection, damage to nearby structures, need for additional procedures. The patient desires to proceed with surgery. Plan: To OR for laparoscopic possible open abscess drainage, possible bowel resection possible ostomy Admit to hospital for IV fluids, IV antibiotics, pain control, infection management Qualifiers: Diverticulitis bleeding: without bleeding Diverticulitis site: unspecified part of intestinal tract Qualified Code(s): K57.80 - Diverticulitis of intestine, part unspecified, with perforation and abscess without bleeding Status: Acute (2) H/O: hysterectomy: Status: Acute (3) Diverticulosis: Status: Acute (4) Hypothyroidism: Status: Acute (5) Hypertension: Status: Acute Assessment & Plan narrative: POD#1 s/p laparoscopic drainage and lavage for perforated diverticulitis with abscess. Drains appear serosanguinous. Plan: PO clears ambulate Drain management IV abx DVT ppx GI ppx home meds PRN pain and antiemetic meds COVID-19 COVID-19 status: Negative Result date/Date tested (Pos, Neg/Pending): 05/20/20 Time Spent With Patient Time with patient: 15-24 minutes Quality VTE Deep Vein Thrombosis/Pulmonary Embolism Present on Admission: No
[2020-05-21] MEDS: LEVOTHYROXINE 88 MCG TABLET PO (07:30)
[2020-05-21] MEDS: MAGNESIUM SULFATE 2 GM/50 ML PIGGYBACK IV (07:32)
[2020-05-21] MEDS: SODIUM CHLORIDE 0.9% 1,000 ML 100 ML IV ×2 (07:39→21:50)
[2020-05-21 07:46] VITALS: BP 108/62; PULSE 72; RESP 18; TEMP 36.5; O2SAT 99
[2020-05-21] MEDS: KETOROLAC 15 MG/ML VIAL IV ×2 (08:23→20:20)
[2020-05-21] MEDS: HEPARIN 5,000 UNIT/ML VIAL 5000 UNIT SUBCUT ×2 (08:25→20:21)
[2020-05-21] MEDS: FAMOTIDINE 20 MG/50 ML PIGGYBACK 200 MG IV ×2 (11:32→23:56)
--- NOTE | 2020-05-21 11:44 | CM.DANOTE ---
DCP: Case received, EMR reviewed and met with patient. Introduced self and role. Was able to meet with patient in her room and obtain information regarding her baseline activity level, health, and living situation. DCP assessment completed with information currently available. Patient is a 69 year old female who admitted yesterday afternoon to the care of the hospitalist/surgical team. PCP: Dr. Garrison. Payer: confirmed: Medicare/[facility]. Patient came to the hospital via private vehicle secondary to abdominal pain. Patient holds diagnosis of perforated diverticulitis with abscess. Patient had surgical procedure yesterday, consisting of a laparoscopic lysis of adhesions. Patient has history of diverticulosis. Met with patient in her room. She was sitting up in her chair next to her bed, alert and oriented. She resides in [place] with her spouse, Neville. She is independent at baseline. Patient indicated that she had recently come back from a road trip in [facility], since her grandaughter will be starting school there in the fall. She mentioned tht the symptoms occurred after she came back from the trip. P: DCP to continue to follow. Patient should be able to go home when she is medically stable. Saira Cox, KAREEN/Affirmative Action Officer
[2020-05-21 12:02] VITALS: PULSE 74; RESP 18; TEMP 36.8; O2SAT 92
[2020-05-21 16:00] VITALS: BP 113/66; PULSE 69; RESP 16; TEMP 36.5; O2SAT 94
[2020-05-21 19:30] VITALS: BP 137/71; PULSE 71; RESP 17; TEMP 36.6; O2SAT 94
[2020-05-22 00:01] VITALS: BP 111/60; PULSE 63; RESP 20; TEMP 36.4; O2SAT 92
[2020-05-22] MEDS: PIPERACILLIN-TAZO 3.375 GM/50 ML FROZ.PIGGY IV ×3 (00:31→12:36)
[2020-05-22] MEDS: KETOROLAC 15 MG/ML VIAL IV ×3 (04:19→18:03)
[2020-05-22 04:42] VITALS: BP 107/55; PULSE 60; RESP 18; TEMP 35.9; O2SAT 91
[2020-05-22 05:35] LABS: Add Manual Diff / Slide Review NO; Basophils Absolute Auto 0 /uL (0-100); Basophils Percent Auto 0.1 % (0-2); Eosinophils Absolute Auto 0 /uL (0-450); Eosinophils Percent Auto 0.1 % (2-4); Hematocrit 29.8 % (36-46); Hemoglobin 9.9 g/dL (12.0-16.0); Lymphocytes Absolute Auto 1500 /uL (1100-4500); Lymphocytes Percent Auto 10.6 % (25-40); Mean Corpuscular HGB Conc 33.2 % (30-36); Mean Corpuscular Hemoglobin 29.3 PG (26-34); Mean Corpuscular Volume 88.4 fL (80-100); Monocytes Absolute Auto 600 /uL (0-900); Monocytes Percent Auto 4.1 % (3-14); Neutrophils Absolute Auto 11700 /uL (1500-7000); Neutrophils Percent Auto 85.1 % (50-75); Platelet Count 305 X10^3/uL (150-400); Red Blood Cell Count 3.37 X10^6/uL (4.0-5.2); Red Cell Distribution Width 13.7 % (11.6-14.8); White Blood Cell Count 13.8 X10^3/uL (4.5-11.0)
[2020-05-22 05:39] LABS: BUN Creatinine Ratio 18.5 (6-22); Blood Urea Nitrogen 17 mg/dL (7-17); Calcium 8.4 mg/dL (8.4-10.2); Carbon Dioxide 25 mmol/L (22-32); Chloride 110 mmol/L (98-107); Estimated Glomerular Filt Rate > 60.0 mL/min (>60); Glucose 98 mg/dL (80-110); HEMOLYSIS < 15 (0-50); Magnesium 2.4 mg/dL (1.6-2.3); Phosphorous 2.6 mg/dL (2.8-4.1); Potassium 4.3 mmol/L (3.4-5.1); Sodium 137 mmol/L (137-145)
[2020-05-22] MEDS: LEVOTHYROXINE 88 MCG TABLET PO (06:24)
[2020-05-22 09:09] VITALS: BP 123/59; PULSE 65; RESP 16; TEMP 36.7; O2SAT 95
[2020-05-22] MEDS: SODIUM CHLORIDE 0.9% 1,000 ML 100 ML IV (09:40)
[2020-05-22] MEDS: HEPARIN 5,000 UNIT/ML VIAL 5000 UNIT SUBCUT (09:40)
[2020-05-22] MEDS: FAMOTIDINE 20 MG/50 ML PIGGYBACK 200 MG IV ×2 (11:55→23:44)
--- NOTE | 2020-05-22 15:26 | PM.PN.1 ---
Subjective Subjective Date Patient Seen: 05/22/20 Time Patient Seen: 15:26 Interval history: No acute events overnight. The patient is passing flatus. Pain is controlled with Toradol. Exam Vital Signs (past 8 hours): - 05/22/20 09:09 Temperature 98.0 F Pulse Rate 65 Respiratory Rate 16 Blood Pressure 123/59 L Pulse Oximetry 95 Oxygen Delivery Method Room Air Oxygen Flow Rate 0 Narrative Exam Narrative: GENERAL: Alert, smiling, comfortable. Appears stated age. Answers questions promptly and appropriately. Vital signs noted. HENT: Normocephalic, atraumatic. Hearing intact. Oral mucosa is pink and moist. EYES: Conjunctiva pink, sclera white, no periorbital swelling. CARDIOVASCULAR: Regular rate. No pedal edema. RESPIRATORY: Non-tachypneic, breathing comfortably on room air. GASTROINTESTINAL: Abdomen soft and non-distended; appropriate TTP for POD#2, OLAMIDE drains murky serosanguinous output, no bilious or stool like output GENITALURINARY: No flank tenderness. MUSCULOSKELETAL: Equal tone and mass bilaterally. SKIN: Warm, dry, soft, appropriate color for ethnicity. No other lesions, rashes, or wounds. NEURO: Alert and Oriented X 3. No gross sensory deficits, or cognitive issues. PSYCH: Appropriate affect and mood. Objective Labs Result Diagrams: 05/22/20 04:40 05/22/20 04:40 Labs: Laboratory Results - last 24 hr 05/22/20 05/22/20 04:40 04:40 WBC 13.8 H RBC 3.37 L Hgb 9.9 L Hct 29.8 L MCV 88.4 MCH 29.3 MCHC 33.2 RDW 13.7 Plt Count 305 Neut % (Auto) 85.1 H Lymph % (Auto) 10.6 L [place] % (Auto) 4.1 Eos % (Auto) 0.1 L Baso % (Auto) 0.1 Neut # (Auto) 33130 H Lymph # (Auto) 1500 [place] # (Auto) 600 Eos # (Auto) 0 Baso # (Auto) 0 Sodium 137 Potassium 4.3 Chloride 110 H Carbon Dioxide 25 BUN 17 Creatinine 0.92 Estimated GFR > 60.0 BUN/Creatinine Ratio 18.5 Glucose 98 Calcium 8.4 Phosphorus 2.6 L D Magnesium 2.4 H Assessment & Plan Assessment and plan (1) Diverticulitis of intestine with perforation and abscess: Problem details: This is a 69-year-old woman with history of diverticulosis, hypertension, hypothyroid, who presents with a week of abdominal pain, and an abscess between loops of small bowel found on her CT scan, which appears to be related to perforated diverticulitis. I had a long discussion with the patient and her regarding the possible scenarios that may take place in the operating room. My hope is to drain the abscess, and leave a drain, without doing much more if possible. Explained that it is possible that there may be injured or threatened bowel in the process of trying to open up the abscess, and there may be an ongoing perforation of the colon which needs to be controlled, the may be a need for bowel resection, open surgery, ileostomy, or colostomy. This was all discussed in detail with the patient and her in the ER, and again in the preop area. Risk and benefit of laparoscopic possible open abscess drainage and drain placement, possible bowel resection, possible ostomy. Risk of bleeding, infection, damage to nearby structures, need for additional procedures. The patient desires to proceed with surgery. Plan: To OR for laparoscopic possible open abscess drainage, possible bowel resection possible ostomy Admit to hospital for IV fluids, IV antibiotics, pain control, infection management Qualifiers: Diverticulitis bleeding: without bleeding Diverticulitis site: unspecified part of intestinal tract Qualified Code(s): K57.80 - Diverticulitis of intestine, part unspecified, with perforation and abscess without bleeding Status: Acute (2) H/O: hysterectomy: Status: Acute (3) Diverticulosis: Status: Acute (4) Hypothyroidism: Status: Acute (5) Hypertension: Status: Acute Assessment & Plan narrative: POD#2 s/p laparoscopic drainage and lavage for perforated diverticulitis with abscess. Drains appear serosanguinous. The patient's white count today to 13.8. She is not having any fevers, her incisions look good, her drain outputs looks serosanguineous. We will advance her to full liquid diet, and consider repeating CT scan of her white count continues to go up. I will switch her antibiotics to Cipro and Flagyl today. Plan: Advanced diet to fulls ambulate Drain management IV abx--changed to Cipro Flagyl DVT ppx GI ppx home meds PRN pain and antiemetic meds COVID-19 COVID-19 status: Negative Result date/Date tested (Pos, Neg/Pending): 05/20/20 Time Spent With Patient Time with patient: 15-24 minutes Quality VTE Deep Vein Thrombosis/Pulmonary Embolism Present on Admission: No
[2020-05-22 15:30] VITALS: BP 102/49; PULSE 67; RESP 18; TEMP 37.1; O2SAT 93
--- NOTE | 2020-05-22 16:08 | PC.NURSE ---
Evening shift note A/O x3, laying in bed with eyes closed, rouses to voice, VSS. Introduced self, assessed pt, noted that dressings around jeffery drains (bilateral) were dirty, changed dressings. Pt tolerated dressing change well, denies pain at this time. Bed low and locked, call light within reach, will continue to monitor.
[2020-05-22] MEDS: CIPROFLOXACIN 400 MG/200 ML PIGGYBACK 200 MG IV (16:54)
[2020-05-22] MEDS: OXYCODONE/ACETAMINOPHEN 5/325 TABLET 1 TAB PO (18:03)
[2020-05-22] MEDS: metroNIDAZOLE 500 MG/100 ML PIGGYBACK 100 MG IV (18:07)
[2020-05-22] MEDS: diphenhydrAMINE 50 MG/ML VIAL 25 MG IV (18:12)
[2020-05-22 20:20] VITALS: BP 110/65; PULSE 60; RESP 16; TEMP 36.8; O2SAT 92
[2020-05-23 00:03] VITALS: BP 117/61; PULSE 62; RESP 20; TEMP 36.2; O2SAT 92
[2020-05-23] MEDS: metroNIDAZOLE 500 MG/100 ML PIGGYBACK 100 MG IV ×3 (00:08→11:44)
[2020-05-23] MEDS: KETOROLAC 15 MG/ML VIAL IV ×2 (00:15→05:46)
[2020-05-23] MEDS: CIPROFLOXACIN 400 MG/200 ML PIGGYBACK 200 MG IV (04:05)
[2020-05-23 04:25] VITALS: BP 139/67; PULSE 68; RESP 20; TEMP 35.8; O2SAT 92
[2020-05-23 05:13] LABS: Add Manual Diff / Slide Review NO; Basophils Absolute Auto 0 /uL (0-100); Basophils Percent Auto 0.5 % (0-2); Eosinophils Absolute Auto 100 /uL (0-450); Eosinophils Percent Auto 1.1 % (2-4); Hematocrit 28.4 % (36-46); Hemoglobin 9.4 g/dL (12.0-16.0); Lymphocytes Absolute Auto 1700 /uL (1100-4500); Lymphocytes Percent Auto 16.3 % (25-40); Mean Corpuscular HGB Conc 32.9 % (30-36); Mean Corpuscular Hemoglobin 29.1 PG (26-34); Mean Corpuscular Volume 88.5 fL (80-100); Monocytes Absolute Auto 500 /uL (0-900); Monocytes Percent Auto 5.1 % (3-14); Neutrophils Absolute Auto 7900 /uL (1500-7000); Platelet Count 330 X10^3/uL (150-400); Red Blood Cell Count 3.21 X10^6/uL (4.0-5.2); White Blood Cell Count 10.3 X10^3/uL (4.5-11.0)
[2020-05-23 05:28] LABS: BUN Creatinine Ratio 16.3 (6-22); Blood Urea Nitrogen 16 mg/dL (7-17); Calcium 8.2 mg/dL (8.4-10.2); Carbon Dioxide 23 mmol/L (22-32); Chloride 109 mmol/L (98-107); Estimated Glomerular Filt Rate 56.1 mL/min (>60); Glucose 107 mg/dL (80-110); HEMOLYSIS < 15 (0-50); Phosphorous 2.6 mg/dL (2.8-4.1); Potassium 3.7 mmol/L (3.4-5.1); Sodium 136 mmol/L (137-145)
[2020-05-23] MEDS: LEVOTHYROXINE 88 MCG TABLET PO (05:46)
[2020-05-23] MEDS: SODIUM CHLORIDE 0.9% FLUSH 10 ML IV (06:03)
--- NOTE | 2020-05-23 07:09 | PM.DS.1 ---
History of Present Illness History of Present Illness Chief complaint: Severe Stomach pain Narrative: This is a 69-year-old woman with history of hypertension, hypothyroid, and diverticulosis, who came into the ER today after 1 week of abdominal pain, which became much more severe last night. Her pain initially was in the lower abdomen, predominantly on the left. Today she started to notice more severe mid abdominal pain and lower abdominal pain. In the ER she was found to have an elevated white blood cell count, and a CT scan which showed an interloop abscess between loops of small bowel which appeared to be emanating from the sigmoid colon, consistent with perforated sigmoid diverticulitis and a contained abscess between loops of bowel. The radiologist was unable to drain this percutaneously, and so I was consulted for surgical drainage and management. The patient says her last colonoscopy was 1 year ago, and she was told she just had diverticulosis. She has from time to time had diverticulitis symptoms, which is usually managed at home by drinking water and eating a bland diet, without antibiotics. She continues to pass stool today, which is mostly diarrhea. She vomited last night after eating. She has had clear liquids today including oral contrast for her CT scan. ROS: Constitutional: Denies chills, Denies fatigue, Denies fever(s) and Denies weakness Ears, Nose, Mouth, and Throat: Denies neck pain and Denies sore throat Cardiovascular: Denies chest pain, Denies irregular heart rhythm, Denies lightheadedness, Denies dyspnea and Denies dyspnea on exertion Respiratory: Denies cough, Denies dyspnea, Denies dyspnea on exertion and Denies wheezing Gastrointestinal: Reports as per HPI, Reports abdominal pain, Reports change in bowel habits, Denies diarrhea, Denies nausea and Denies vomiting Genitourinary: Denies difficulty urinating and Denies dysuria Musculoskeletal: Denies back pain, Denies neck pain and Denies numbness Skin/Breast: Denies erythema and Denies rash Neurologic: Denies confusion, Denies numbness and Denies weakness Psychiatric: Denies anxiety and Denies confusion Endocrine: Denies fatigue and Denies flushing Allergic/Immunologic: Denies wheezing PE: GENERAL: Alert, mild distress. Appears stated age. Answers questions promptly and appropriately. Vital signs noted. HENT: Normocephalic, atraumatic. Hearing intact. EYES: Conjunctiva pink, sclera white, no periorbital swelling. CARDIOVASCULAR: Regular rate. No pedal edema. RESPIRATORY: Non-tachypneic, breathing comfortably on room air. GASTROINTESTINAL: Abdomen soft, mildly distended, moderately tender to palpation in bilateral lower quadrants left greater than right GENITALURINARY: No flank tenderness. MUSCULOSKELETAL: Equal tone and mass bilaterally. SKIN: Warm, dry, soft, appropriate color for ethnicity. No other lesions, rashes, or wounds. NEURO: Alert and Oriented X 3. No gross sensory deficits, or cognitive issues. PSYCH: Appropriate affect and mood. Discharge Providers Provider Date of admission: 05/20/20 12:34 Discharge Date: 05/23/20 Primary care physician: Todd Garrison MD Consults: 05/20/20 18:45 Consult to Discharge Planning Routine Comment: 05/21/20 09:29 Consult to Home Health Routine Comment: Reason For Exam: FWW for home use Discharge provider: Lesley Parra MD Summary Hospital Course Discharge Diagnosis: perforated diverticulitis Hospital Course: Pt came into ER with one week of abdominal pain, and was found to have an abscess between loops of bowel; was taken to OR for drainage and washout. She had gradual return of bowel function, was treated with IV antibiotics, and OLAMIDE drain management. Status at Discharge Cognitive/behavioral status at discharge: at baseline, oriented Functional status at discharge: independent ambulation Overall status at discharge: patient is progressing back to baseline Time Spent with Patient Time spent: Greater than 30 minutes Exam Vital Signs (past 8 hours): - 05/23/20 00:03 05/23/20 04:25 Temperature 97.1 F L 96.5 F L Pulse Rate 62 68 Respiratory Rate 20 20 Blood Pressure 117/61 139/67 Pulse Oximetry 92 92 Oxygen Delivery Method Room Air Oxygen Flow Rate 0 Narrative Exam Narrative: PE: GENERAL: Alert, comfortable. Appears stated age. Answers questions promptly and appropriately. Vital signs noted. HENT: Normocephalic, atraumatic. Hearing intact. Oral mucosa is pink and moist. EYES: Conjunctiva pink, sclera white, no periorbital swelling. CARDIOVASCULAR: Regular rate. No pedal edema. RESPIRATORY: Non-tachypneic, breathing comfortably on room air. GASTROINTESTINAL: Abdomen soft, mildly distended, appropriate TTP for POD#3, OLAMIDE drains serosanguinous GENITALURINARY: No flank tenderness. MUSCULOSKELETAL: Equal tone and mass bilaterally. SKIN: Warm, dry, soft, appropriate color for ethnicity. No other lesions, rashes, or wounds. NEURO: Alert and Oriented X 3. No gross sensory deficits, or cognitive issues. PSYCH: Appropriate mood and affect, normal intellect Objective Imaging CT scan - abdomen: Radiologist's impression: [address] [address] [address] Scan Report Signed Patient: Regino Ruby#: [id number] : 9Acct:[id number] Age/Sex: 69 / FDate of Service: 05/20/20 Loc: ED Accession Number: [id number] Procedure: CT abdomen pelvis w con Ordering Provider: Nicole Vallejo MD PROCEDURE: CT ABDOMEN PELVIS W CON INDICATIONS: severe abd pain TECHNIQUE: After the administration of oral and intravenous contrast, 5 mm thick sections acquired from the diaphragms to the symphysis. 5 mm thick coronal and sagittal reformats were performed. For radiation dose reduction, the following was used: automated exposure control, adjustment of mA and/or kV according to patient size. COMPARISON: None. FINDINGS: Image quality: Excellent. ABDOMEN: Lung bases: Lung bases are clear. Heart size is normal. Solid organs: Liver is normal in size. Probable hepatic steatosis. Gallbladder is unremarkable. Biliary system is non-dilated. Pancreas enhances normally. Spleen is normal in size and enhancement. No adrenal nodules. Kidneys are normal in size and enhancement, without hydronephrosis. There is a 7 mm calculus in the left renal pelvis, (4/40). This does not appear to be obstructive. Peritoneum and bowel: A bilobed extraluminal fluid collection in the midline pelvis measuring 5.8 x 4.9 x 4.7 cm, estimated volume of 69 cc; and left paramedian pelvis adjacent to the sigmoid colon measuring 3.1 x 2.9 x 2.3 cm, estimated volume of 11 cc. The larger component of this collection appears to be walled off. There is gas within these collections. There is extensive surrounding inflammatory change. The adjacent loops of small bowel are dilated. The abscess abuts the urinary bladder. There is a small amount of scattered free fluid in the abdomen and pelvis. There is sigmoid colon diverticuli. The appendix is normal in caliber. Stomach is within normal limits. Nodes and vessels: No retroperitoneal or mesenteric adenopathy. Aorta and inferior vena cava are normal in caliber. Miscellaneous: No ventral hernias. PELVIS: Genitourinary: Bladder is partially distended. The abscess abuts the urinary bladder. No gas in the urinary bladder. The uterus is absent. Miscellaneous: No inguinal hernias or adenopathy. Bones: No suspicious bony lesions. No vertebral body compression fractures. IMPRESSION: 1. Bilobed extraluminal fluid collection in the pelvis measuring 5.8 cm and 3.1 cm containing gas and with extensive surrounding inflammatory change. Findings consistent with a moderate sized abscess. Suspect that this abscess is due to diverticulitis and small sigmoid colonic perforation. 2. Dilated loops of small bowel in the lower abdomen. This is favored to be due to ileus. Additional incidental findings: Non-obstructing left kidney stone measuring 7 mm. Probable hepatic steatosis. Dictated by: Shalom Harrell M.D. on 05/20/2020 at 9:08 Approved by: Shalom Harrell M.D. on 05/20/2020 at 9:24 Labs Result Diagrams: 05/23/20 05:00 05/23/20 05:00 Labs: Laboratory Results - last 24 hr 05/23/20 05/23/20 05:00 05:00 WBC 10.3 RBC 3.21 L Hgb 9.4 L Hct 28.4 L MCV 88.5 MCH 29.1 MCHC 32.9 RDW 14.0 Plt Count 330 Neut % (Auto) 77.0 H Lymph % (Auto) 16.3 L [place] % (Auto) 5.1 Eos % (Auto) 1.1 L Baso % (Auto) 0.5 Neut # (Auto) 7900 H Lymph # (Auto) 1700 [place] # (Auto) 500 Eos # (Auto) 100 Baso # (Auto) 0 Sodium 136 L Potassium 3.7 Chloride 109 H Carbon Dioxide 23 BUN 16 Creatinine 0.98 Estimated GFR 56.1 L BUN/Creatinine Ratio 16.3 Glucose 107 Calcium 8.2 L Phosphorus 2.6 L Magnesium 2.0 Discharge Assessment & Plan Assessment and Plan Assessment: Perforated diverticulitis with abscess Plan of Treatment: Drains until output stops; continue cipro and flagyl for two weeks; follow up next week for drain assessment; wean off pain meds Discharge Plan Discharge Plan Patient Disposition: Home Discharge comment: 1) Take all of your antibiotics on time and as directed. Do not drink any alcohol. Any alcohol will make you violently ill (nausea/vomiting) with the Metronidazole antibiotic. 2) Drink plenty of water and keep yourself well hydrated. 3) Use Metamucil or Benefiber, or store brand/other brand of psyllium husk fiber supplement. Mix 2 teaspoons with 8 oz of water one to two times per day. The goal is having a soft, formed stool which is easy to pass. Do not strain on the toilet. Do not sit on the toilet for more than two minutes at a time to have a BM. 4) You may advance from full liquid to solid diet as tolerated. Avoid things that are difficult to digest such as hard meats, uncooked roughage, and fruit peels. Most of your fiber should come from easy to digest sources, such as Metamucil. 5) If you get constipated or bloated, return to clear liquid diet, and take Miralax 1-3 times per day until you are passing liquid stool, then back off on the Miralax until your stools are formed. 6) If you have fevers, intractable vomiting, can't pass any gas or stool for 24 hours, or other concerning symptoms please call the [facility] office number to speak with the doctor special education coordinator. Please come into the ER if your symptoms are severe or you can not reach the doctor. 7) You may shower, if the drain insertion sites are protected with a plastic dressing. Or you may take bath in a shallow tub if the surgical wounds and drain insertion sites are not submerged. 8) Record your drain output and bring that information with you to your follow up appointment. 9) Call on Tuesday to make an appointment to be seen by Dr. Parra on Tuesday or in [facility]. 10) You may take Tylenol up to 3000mg/day (including all sources--may be in cold medicine or headache medicine), Ibuprofen up to 2400mg/day with food (stop taking if stomach pain occurs), along with or instead of the prescribed narcotic pain medication. Increase your laxative/stool softener intake if you use the prescribed pain med as it can cause constipation. Discharge orders & Medications Prescriptions: New ciprofloxacin HCl 500 mg tablet 500 mg PO Q12H Qty: 26 RF: 0 metronidazole 500 mg tablet 500 mg PO TID Qty: 39 RF: 0 ibuprofen 800 mg tablet 800 mg PO Q8H PRN (Reason: post operative pain) Qty: 30 RF: 0 oxycodone 5 mg tablet 5 mg PO Q8H PRN (Reason: post operative pain) Qty: 20 RF: 0 Continued amlodipine 2.5 mg tablet 2.5 mg PO DAILY RF: 0 lisinopril 20 mg Tablet 20 mg PO DAILY RF: 0 levothyroxine 88 mcg tablet 88 mcg PO DAILY RF: 0 Follow up/Referrals: Todd Garrison MD [Primary Care Provider] - Lesley Parra MD [Physician] - (Please call on Tuesday and make an appointment to see me on Tuesday or .) Diet/Activity/Treatments Diet: Diet as Tolerated Diet comment: Ok to advance from liquid to solid as tolerated Activity: Keep active with lots of walking. Avoid heavy lifting or strenuous activity. Skin/Wound/Dressing Care Report to your healthcare provider any signs of infection, such as:: chills, fever, night sweats, increased pain, unusual drainage and unusual redness Visit Report/Discharge Packet Instructions: Diverticulitis, Low-Fiber/Low-Residue Diet, DI for Tod-Real Drains, DI for Prescription Opioid Use, [facility]: Wound Care Stand Alone Forms: Surgery Discharge Visit Report Forms: Patient Portal/API, Stroke Signs & Symptoms Discharge Data Primary Care Provider: Todd Garrison Discharges patient from system. Discharge Date/Time: 05/23/20 12:15 Quality VTE Deep Vein Thrombosis/Pulmonary Embolism Present on Admission: No
[2020-05-23] MEDS: HEPARIN 5,000 UNIT/ML VIAL 5000 UNIT SUBCUT (08:26)
[2020-05-23] MEDS: PSYLLIUM HUSK 1 PACKET PO (08:27)
[2020-05-23 09:00] VITALS: BP 118/58; PULSE 69; RESP 18; TEMP 36.4; O2SAT 92
[2020-05-23] MEDS: FAMOTIDINE 20 MG/50 ML PIGGYBACK 200 MG IV (11:43)
--- NOTE | 2020-05-23 12:03 | PC.NURSE ---
Day shift note: Patient awake, alert, and pleasant. Discharge instructions given to patient and , discussed importance of F/U with Dr. Parra next week on Tue/or , new medications, dietary changes, dressing change care, Drain care and documentation of amount. Verbalized understanding of instructions. Home accompanied by , via private vehicle.
--- NOTE | 2020-05-23 13:06 | CM.DPC ---
DCP: continued: case received and discussed in Team Rounds. Dr. Parra has been to see pt this morning and ok'd her for a d/c to home setting. Pt will followup with Dr. Parra in clinic either 05/27 or 05/29. Drains will remain in place for until the clinic visit. A check in now shows that pt did d/c with her just after noon.
== END 2020-05-23 12:15 | disposition home or self-care (01) | DRG 337 ==
LOC: ED 12:18 → AC 12:35
PROVIDERS: Emergency Medicine; Admitting Provider Surgery; Emergency Provider Emergency Medicine; PCP Internal Medicine; Referring Provider Physician Assistant; Visit Provider Surgery
PROC: 0DNW4ZZ Release Peritoneum, Percutaneous Endoscopic Approach (ICD-10-PCS; CPT 49320; principal; 2020-05-20 14:45)
DX: K57.20 Diverticulitis of large intestine with perforation and abscess without bleeding (principal); I10 Essential (primary) hypertension; E03.9 Hypothyroidism, unspecified
CPT/HCPCS: 36415; 44180; 74177; 80048; 80053; 81001; 83605; 83690; 83735; 84100; 84484; 85025; 87040; 87086; 87635; 93005; 96361; 96365; 96375; 96376; 99222; 99284; 99291; J0330; J0744; J1100; J1170; J1200; J1644; J1885; J2405; J2543; J2704; J3010; Q9967

== ENCOUNTER → 2020-05-20 14:47 | Outpatient (ROUT) | payer MEDICARE, OTHER, SELFPAY | PROVIDERS: PCP Internal Medicine; Visit Provider Internal Medicine | DX: N39.0 Urinary tract infection, site not specified (principal) | CPT/HCPCS: 87086 ==

== ENCOUNTER → 2020-09-09 10:42 | Outpatient (CLI) | payer MEDICARE, OTHER, SELFPAY ==
[2020-09-02 13:15] VITALS: BMI 26.3
[2020-09-09 11:50] LABS: COVID19 -Nasal RAPID Negative (Negative)
== END ==
PROVIDERS: PCP Internal Medicine; Visit Provider Surgery
DX: K57.92 Diverticulitis of intestine, part unspecified, without perforation or abscess without bleeding (principal)
CPT/HCPCS: 87635

== ENCOUNTER 2020-09-10 06:24 | Inpatient (IN) | payer MEDICARE, OTHER, SELFPAY ==
[2020-05-20 18:45] VITALS: BMI 26.3
[2020-08-28 14:01] VITALS: BMI 25.2
[2020-09-02 13:15] VITALS: BMI 26.3
[2020-09-10] VITALS (16 sets, daily range): BP systolic 104–152; BP diastolic 57–94; PULSE 69–90; RESP 12–20; TEMP 36.4–37.4; O2SAT 95–99; BMI 25.0
--- NOTE | 2020-09-10 | PATH_ITS ---
[facility] Accession Number: [id number] . 01 Material submitted: . colon - SIGMOID COLON . 01 Clinical history: . UROLOGY SURGERY / LAP POSS OPEN COLECTOMY W/ISG . 02 Diagnosis: Sigmoid Colon, Sigmoidectomy: Segment of colon with diverticulosis, mural foreign body-type granulomatous inflammation and serosal adhesions, consistent with ruptured diverticulitis. Six reactive pericolonic lymph nodes. No evidence of neoplasm. MRV 09/15/2020 1052 Local . 02 Electronically signed: . Eugenio Park MD, PhD, Pathologist NPI- [id number] . 01 Gross description: . Received in formalin, labeled sigmoid colon, and consists of a 10.5 cm in length by 5.0 cm in diameter portion of colon with two stapled margins. The serosa is chaudhari-pink with a 4.0 x 2.5 cm firm area with fibrinous adhesions (inked blue) located 2.5 cm from the nearest stapled margin. Opening reveals a chaudhari-pink mucosa with normal mucosal folds. Sectioning reveals multiple uncomplicated diverticula throughout the specimen with one containing brown fecal material. The wall thickness ranges from 0.2 to 1.0 cm. Sectioning through the attached adipose tissue reveals multiple lymph nodes ranging from 0.1 to 0.5 cm. Still Operator sections are submitted. . A1-A2 - shared services representative perpendicular sections of stapled margins (blue). A3-A5 - shared services representative diverticula. A6 - lymph nodes. ([id number]) /MRV 09/11/2020 1230 Local . 02 Pathologist provided ICD-10: K57.20 . 02 CPT . 958235 Performed at: [address] [facility], [place], [place] [id number] MD Neville Howard MD Phone: [phone] Performed at: 02 [facility] [id number] [place] [id number] MD Marimar Manzanares MD Phone: [phone]
--- NOTE | 2020-09-10 06:38 | PM.PREOP ---
Pre-operative Note COVID-19 COVID-19 status: Negative Result date/Date tested (Pos, Neg/Pending): 09/09/20 Interval Note History & Physical reviewed/Exam performed by Physician: Yes Changes to H&P: No
[2020-09-10] MEDS: LACTATED RINGERS 1,000 ML 100 ML IV ×2 (07:32→12:12)
[2020-09-10] MEDS: PIPERACILLIN-TAZO 3.375 GM/50 ML FROZ.PIGGY IV (09:03)
--- NOTE | 2020-09-10 09:37 | PM.OP.1 ---
Operative Date/Time/Diagnoses Date of procedure: 09/10/20 Time of procedure: 09:37 Pre-op diagnosis: Complicated diverticulitis Post-op diagnosis: same Procedure & Clinicians Procedure: Cystoscopy/placement bilateral localizing ureteral stent Same procedure as scheduled: Yes Indications: Complicated diverticulitis Surgeon: Devorah Romero Click Yes if Unassisted: Yes Anesthesia Type: General Operative Notes Findings: 1. Grade 2 cystocele and grade 2 rectocele. 2. Moderate atrophic vaginitis. 3. Normal caliber and position of urethra. No evidence of caruncle. 4. Bladder urothelium normal throughout. Normal position and configuration of ureteral orifices bilaterally. Closure Type: not applicable Specimen(s): none sent Applied: other (Bilateral illuminating ureteral stents) Estimated Blood Loss (mL): 0 Blood products transfused: none Tourniquet time (min): 0 Procedure in detail: Patient was positioned in supine and administered general anesthetic. She was repositioned semi lithotomy and the lower abdomen, groin, and perineum were prepped and draped in sterile fashion. The 25 Chinese panendoscope was then passed lower urinary tract with findings as described above. Using the dual bridge, a 0.35 hybrid guidewire was advanced into the right ureteral orifice and then proximally until resistance was met. Next, the outer sheath of the illuminating stent was advanced over the wire for distance of approximately 22 cm. This sheath was labeled at its distal extent for lateralization. Next, same steps and maneuvers were performed for the left ureter. The outer sheath on the left is not labeled distally. The bladder was then left partially filled and the scope was backloaded off the illuminating ureteral sheath. Now illuminating fibers were advanced into each of the lumens of the ureteral stents. The system was then secured to the light source accessory with Op site. A 16 Chinese Britt catheter was then inserted in the bladder, the balloon filled to 10 cc, and then was placed to gravity drainage. The illuminating ureteral stents were then secured to the Britt catheter with a medium Op site dressing. Dr. Parra then proceeded with her operative plan, the details of which can be found in her operative report. Complications: none Post-operative Condition: stable Disposition: Acute Care
--- NOTE | 2020-09-10 10:03 | SUR.OPER ---
Lithotomy on padded OR bed. [place] Pad Positioner under torso. Head on pillow, arms padded and tucked at sides. Legs secured in padded yellow fins stirrups.
[2020-09-10] MEDS: BUPIVACAINE LIPOSOME 266 MG/20 ML VIAL INJ (10:39)
[2020-09-10] MEDS: MINERAL OIL LIGHT TOPICAL 25 ML 10 ML TOP (10:40)
[2020-09-10] MEDS: BUPIVACAINE 0.25% W/ EPI (PF) 10 ML VIAL 20 ML INJ (10:41)
--- NOTE | 2020-09-10 13:43 | PM.OP.1 ---
Operative Date/Time/Diagnoses Date of procedure: 09/10/20 Time of procedure: 13:43 Pre-op diagnosis: Diverticulitis Post-op diagnosis: other (Diverticulitis, dense adhesions of the small bowel, dense scar tissue in the pelvis; thickened colon with diffuse diverticula) Procedure & Clinicians Procedure: Laparoscopic takedown of splenic flexure Laparoscopic converted to open sigmoid colectomy Lysis of adhesions Diverting loop ileostomy Flexible Sigmoidoscopy Same procedure as scheduled: Yes Indications: Complicated diverticulitis with recent perforation and abscess formation four months ago requiring laparoscopic drainage. Second surgeon was required due to the patient's advanced disease, and the increased difficulty of the operation. Dr. Castle assisted throughout the operation with complex decision making, performed flexible endoscopy and transanal insufflation for testing of the anastomosis. Surgeon: Lesley Parra Elementary Instructional Coach: Harshad Castle Operative Notes Findings: Diverticulitis, dense adhesions of the small bowel, dense scar tissue in the pelvis; thickened colon with diffuse diverticula Specimen(s): other (Sigmoid colon) Estimated Blood Loss (mL): 50 Procedure in detail: The patient was brought into the operating room and placed supine on the OR table. Sequential compression devices were placed on both legs and turned on. Appropriate perioperative antibiotics were given prior to the start of surgery. General anesthesia was induced the patient was intubated. Dr. oRmero came in to place ureteral stents and Britt catheter. Please see his dictation for that portion of the procedure. Once the ureteral stents were placed the patient was positioned in low lithotomy, modified Aiden Denson position. The abdomen and perineum were prepped and draped in sterile fashion. Surgical time-out was conducted. Local anesthetic was injected under the skin just superior to the umbilicus and a 5 mm vertical incision was made at this site. The umbilical stalk was grasped with a Holly and elevated. A Veress needle was passed through the fascia into proper position. The position was tested with a saline drop test which was appropriate for intra-abdominal Veress needle placement. The abdomen was then insufflated in the usual fashion. Once insufflated to 15 mm Hg the Veress needle was removed and a 5 mm optical trocar was placed under direct vision using a 5 mm 30 degree scope. Once the camera was inside the abdomen I took a look around. There was no injury from port placement. Two additional ports were placed in a similar fashion in the right mid abdomen, and left mid abdomen. Dense adhesions were present throughout the upper mid abdomen and pelvis. Adhesions were taken down using [place] Ligasure. An additional 5mm port was placed in the right lower quadrant. Attention was then turned to the pelvis and the patient was placed in steep Trendelenburg position with the right side down. We began mobilizing the sigmoid colon. Just past the pelvic brim the sigmoid colon was densely adherent to the pelvic sidewall and the pelvic reflection. There was a hard phlegmon in that area, and it was very vascular. Dissection was tedious and meticulous due to dense adhesions which were very vascular. Dissection of the sigmoid and hemostasis took over an hour. Continual careful dissection was required and bipolar cautery was used to maintain hemostasis. The sigmoid was very hard and thickened and it was very difficult to differentiate bowel from phlegmon from other structures in the area. At this point the decision was made to convert to an open operation. Prior to opening I decided to mobilize the splenic flexure to avoid a longer incision to mobilize it once open. Attention was turned to the left upper quadrant. The patient was placed in reverse Trendelenburg position. Dissection was undertaken to mobilize the splenic flexure in order to have adequate length for sigmoid anastomosis. After about 25 minutes of dissection we had adequate length on the colon to anticipate an appropriate anastomosis in the pelvis. Dr. Castle directed the camera and retracted the omentum as I dissected the colon free from the omentum, left gutter and spleen. Once this was completed, we turned our attention to making our incision. 25cm midline incision was made using a 10 blade. Dissection was carried down to the fascia, and the fascia was opened vertically for the length of the skin incision. Careful dissection was continued circumferentially around the involved sigmoid colon, with ongoing work to achieve and maintain hemostasis. Once the sigmoid colon was dissected out circumferentially, a SWATI blue load stapler was brought into field. Using the SWATI stapler we transected the descending colon above the hard phlegmonous mass. A Contour stapler was used to transect the rectum below the hard mass. The specimen was passed off the table, and a hand sewn end to end anastomosis was created using interrupted 3-0 silks as the outer layer, and running 3-0 PDS inner layer. The anastomosis was tested by Dr. aCstle insufflating transrectally using an asepto syringe with air. Air filled the colon proximal to the anastomosis and did not bubble out from the anastomosis while submerged under saline. The anastomosis was found to be without leak. Dr. Castle then did a flexible sigmoidoscopy to evaluate the lumen and to check for a leak. There was again no leak. The anastomosis was very edematous, but air insufflated through to the proximal colon. Due to the small caliber of the colon, the diffuse thickening and diverticula throughout the colon, and the patient's severe scarring and inflammatory response increasing risk for stenosis or stricture, the decision was made to create a diverting ileostomy. At this point local anesthetic was injected into each of the port sites and into the fascial incision using 0.25% Marcaine with epi and 20 mL of Exparel. The 12 mm port site was closed with 0 Vicryl in the fascia. The distal ileum was then brought up to the abdominal wall and an appropriate position on the right lower abdomen, and an ostomy incision was performed at that site. Circular incision in the skin was then carried down to the fascia, and the fascia was opened in a cruciate fashion in the anterior fascia, and the muscle was split deep to that, and then the peritoneum was opened with cautery. I was able to fit 2 fingers in the opening, and I brought up the loop of ileum through that site. An ostomy bar was made using a red rubber catheter. The fascia was then closed with running 0 PDS and interrupted 0 Vicryl figure of 8's, and the skin was closed with skin niharika. Each port site was then closed with 4 0 Monocryl, and Dermabond. Each of the wounds was dressed with a sterile dressing. The ileostomy was then brooked in the usual fashion, and an ostomy appliance was placed. The specimen was opened on the back table and was found to be thickened stenotic colon consistent with chronic diverticulitis, and no gross evidence of malignancy was seen. The ureteral stents were then removed, and the Britt was left in place. Needle sponge and instrument counts were correct x2 at the end of the procedure. The patient tolerated the procedure well. Patient was awakened from anesthesia and extubated. She was transferred to the postanesthesia care unit in stable condition. Complications: none Post-operative Condition: stable Disposition: PACU Plan for aftercare: Recommend 22 modifier for increases services including prolonged OR time, lysis of adhesions, and flexible sigmoidoscopy
[2020-09-10] MEDS: fentaNYL 100 MCG/2 ML INJ IV ×2 (14:00→14:05)
[2020-09-10] MEDS: HYDROMORPHONE 2 MG INJ IV ×8 (14:15→14:50)
--- NOTE | 2020-09-10 15:26 | SUR.PHASEI ---
report called to KAREEN Topete. Pt transferred to floor in stable condition with no c/o
[2020-09-10] MEDS: SODIUM CHLORIDE 0.9% 1,000 ML 80 ML IV (16:58)
[2020-09-10] MEDS: ACETAMINOPHEN 325 MG TABLET 650 MG PO (19:28)
[2020-09-10] MEDS: HYDROMORPHONE 0.5 MG INJ IV (20:24)
[2020-09-10] MEDS: PANTOPRAZOLE 40 MG VIAL 20 MG IV (20:24)
--- NOTE | 2020-09-10 22:42 | PC.NURSE ---
Day shift note: Received patient from PACU, awake, alert, and pleasantly calm. Nazario at bedside providing supportive care. NGT placed to LIS, light green drainage noted, NGT secured to right nare. IVF initiated, and SCDs placed upon arrival. Discussed importance of IS use and keeping HOB at 30 degrees. Oriented to room, environment, and plan of care. Dr. Parra updated patient this mikhail at bedside. Dressing to mid abdomen, CDI, surgical lap sites, secured with dermabond. Iliostomy to mid/right abdomen, secured with drainable bag attached. Stoma, beefy red and moist. Call light within reach. Calls appropriately for staff assist.
[2020-09-11] VITALS (7 sets, daily range): BP systolic 122–142; BP diastolic 66–88; PULSE 65–88; RESP 15–18; TEMP 36.5–37.4; O2SAT 97–99
[2020-09-11] MEDS: HYDROMORPHONE 0.5 MG INJ IV ×3 (00:19→19:20)
[2020-09-11] MEDS: ACETAMINOPHEN 325 MG TABLET 650 MG PO ×4 (06:29→23:55)
[2020-09-11] MEDS: LEVOTHYROXINE 88 MCG TABLET 44 MCG PO (06:29)
[2020-09-11] MEDS: SODIUM CHLORIDE 0.9% 1,000 ML 80 ML IV ×2 (06:31→20:26)
[2020-09-11 06:40] LABS: Add Manual Diff / Slide Review NO; Basophils Absolute Auto 0 /uL (0-100); Basophils Percent Auto 0.2 % (0-2); Eosinophils Absolute Auto 0 /uL (0-450); Hematocrit 36.4 % (36-46); Hemoglobin 11.9 g/dL (12.0-16.0); Lymphocytes Absolute Auto 1400 /uL (1100-4500); Lymphocytes Percent Auto 10.4 % (25-40); Mean Corpuscular HGB Conc 32.6 % (30-36); Mean Corpuscular Hemoglobin 28.6 PG (26-34); Mean Corpuscular Volume 87.7 fL (80-100); Monocytes Absolute Auto 600 /uL (0-900); Monocytes Percent Auto 4.2 % (3-14); Neutrophils Absolute Auto 11300 /uL (1500-7000); Neutrophils Percent Auto 85.2 % (50-75); Platelet Count 281 X10^3/uL (150-400); Red Blood Cell Count 4.15 X10^6/uL (4.0-5.2); Red Cell Distribution Width 13.2 % (11.6-14.8); White Blood Cell Count 13.3 X10^3/uL (4.5-11.0)
[2020-09-11 06:49] LABS: BUN Creatinine Ratio 22.2 (6-22); Blood Urea Nitrogen 20 mg/dL (7-17); Calcium 9.1 mg/dL (8.4-10.2); Carbon Dioxide 27 mmol/L (22-32); Chloride 108 mmol/L (98-107); Estimated Glomerular Filt Rate > 60.0 mL/min (>60); Glucose 141 mg/dL (80-110); HEMOLYSIS < 15 (0-50); Magnesium 1.8 mg/dL (1.6-2.3); Phosphorous 3.2 mg/dL (2.8-4.1); Potassium 4.7 mmol/L (3.4-5.1); Sodium 137 mmol/L (137-145)
--- NOTE | 2020-09-11 07:17 | PM.PN.1 ---
Subjective Subjective Date Patient Seen: 09/11/20 Time Patient Seen: 08:27 Interval history: No acute events overnight. Pt has gas in the bag. Also reports passing gas rectally. Denies nausea. Pain well controlled. Exam Vital Signs (past 8 hours): - 09/11/20 00:00 09/11/20 04:29 Temperature 98.1 F 97.7 F Pulse Rate 79 72 Respiratory Rate 18 16 Blood Pressure 133/75 136/88 Pulse Oximetry 97 97 Oxygen Delivery Method Room Air Oxygen Flow Rate 0 Narrative Exam Narrative: GENERAL: Alert, fatigued, comfortable Appears stated age. Answers questions promptly and appropriately. Vital signs noted. HENT: Normocephalic, atraumatic. Hearing intact. Oral mucosa is pink and moist. NGT in place and sumping; small amount of bilious output. NGT removed during exam EYES: Conjunctiva pink, sclera white, no periorbital swelling. CARDIOVASCULAR: Regular rate. No pedal edema. RESPIRATORY: Non-tachypneic, breathing comfortably on room air. GASTROINTESTINAL: Abdomen soft, mildly distended, dressings c/d/i; ostomy p/p/p with gas and dark liquid stool in the bag Objective Labs Result Diagrams: 09/12/20 06:35 09/12/20 06:35 Labs: Laboratory Results - last 24 hr 09/11/20 09/11/20 06:15 06:15 WBC 13.3 H RBC 4.15 Hgb 11.9 L Hct 36.4 MCV 87.7 MCH 28.6 MCHC 32.6 RDW 13.2 Plt Count 281 Neut % (Auto) 85.2 H Lymph % (Auto) 10.4 L [place] % (Auto) 4.2 Eos % (Auto) 0.0 L Baso % (Auto) 0.2 Neut # (Auto) 80284 H Lymph # (Auto) 1400 [place] # (Auto) 600 Eos # (Auto) 0 Baso # (Auto) 0 Sodium 137 Potassium 4.7 Chloride 108 H Carbon Dioxide 27 BUN 20 H Creatinine 0.90 Estimated GFR > 60.0 BUN/Creatinine Ratio 22.2 H Glucose 141 H Calcium 9.1 Phosphorus 3.2 Magnesium 1.8 Assessment & Plan Assessment and plan (1) Diverticulitis of intestine with perforation and abscess: Qualifiers: Diverticulitis bleeding: without bleeding Diverticulitis site: unspecified part of intestinal tract Qualified Code(s): K57.80 - Diverticulitis of intestine, part unspecified, with perforation and abscess without bleeding Status: Acute (2) H/O: hysterectomy: Status: Resolved (3) Diverticulosis: Status: Acute (4) Hypothyroidism: Status: Chronic (5) Hypertension: Status: Chronic Assessment & Plan narrative: POD#1 s/p sigmoid colectomy. Doing well over all. Plan: Advanced diet to fulls ambulate DVT ppx GI ppx home meds PRN pain and antiemetic meds COVID-19 COVID-19 status: Negative Result date/Date tested (Pos, Neg/Pending): 05/20/20 Time Spent With Patient Time with patient: 15-24 minutes
[2020-09-11] MEDS: ENOXAPARIN 40 MG/0.4 ML SYRINGE SUBCUT (09:25)
[2020-09-11] MEDS: PANTOPRAZOLE 40 MG VIAL 20 MG IV ×2 (09:26→20:20)
[2020-09-11] MEDS: lisinopriL 20 MG TABLET PO (09:26)
[2020-09-11] MEDS: AMLODIPINE 5 MG TABLET 2.5 MG PO (09:26)
--- NOTE | 2020-09-11 11:16 | CM.DANOTE ---
DCP: Case received, EMR reviewed and met with patient. Introduced self and role. Was able to obtain information from patient regarding her baseline activity status prior to hospitalization. DCP assessment completed with information currently available. Patient is a 69 year old female who admitted yesterday morning to the care of the hospitalist team. PCP: Dr. Garrison. Payer: confirmed: Medicare/[facility] Patient came to the hospital for surgical procedures. She had cystoscopy performed by urologist, and laparoscopic takedown, by surgeon. Patient now has ileostomy. Patient has history of diverticulitis. Met with patient in her room. She is alert and oriented, lives with her spouse, Neville. Stated, this should be a temporary ileostomy, and I have good family support at home if I need it. She is independent at baseline. P: DCP to continue to follow for any needs. Anticipate that she will have ostomy teaching here in the hospital. She should be able to go home when medically stable. Saira Cox RN/Product Promoter Sales Person
--- NOTE | 2020-09-11 12:06 | DIET.PN ---
Dietary Progress Note RD providing ONS Robin bid and Ensure Clear once daily to supplement 50% pts protein needs while on clears.
--- NOTE | 2020-09-11 15:10 | PC.NURSE ---
Ostomy Nurse Consult Note Nereida awake and alert in bed. Her is here. She denies pain and is very interested in learning about her ileostomy as well as her how is ready with a note pad to take note. Her stoma is edematous, pink. The stoma bar is in place. She has gas and green liquid efflluent. I did not change her appliance. Her midline dressing is dry and intact. Her walden was D/C and she got up to void. I reviewed ileostomy anatomy and gave them the [employer] New Patient Guide. I circled sections I would like her to review. She was very concerned about foods and I reviewed some literature and reinforced that she will be seeing the dietitian. I will return tomorrow around 1100 to continue with teaching with Nereida and her .
[2020-09-11] MEDS: PIPERACILLIN-TAZO 3.375 GM/50 ML FROZ.PIGGY IV ×2 (20:17→23:56)
--- NOTE | 2020-09-11 22:34 | PC.NURSE ---
VSS. 1 person assist walk around room and up to toilet. Pain increased this evening after PT, given 0.5 mg Iv Dilaudid with relief. Peripheral IV on left forearm was removed due to infiltration. New Iv placed in right forearm but again had infiltration. Iv is now in left forearm with NS @ 80.
[2020-09-12 00:10] VITALS: BP 145/70; PULSE 62; RESP 16; TEMP 36.1; O2SAT 98
[2020-09-12 04:30] VITALS: BP 123/60; PULSE 67; RESP 16; TEMP 36.1; O2SAT 96
[2020-09-12] MEDS: ACETAMINOPHEN 325 MG TABLET 650 MG PO ×4 (05:49→23:48)
[2020-09-12] MEDS: PIPERACILLIN-TAZO 3.375 GM/50 ML FROZ.PIGGY IV ×2 (05:49→12:21)
[2020-09-12] MEDS: LEVOTHYROXINE 88 MCG TABLET PO (05:49)
[2020-09-12 06:39] LABS: Add Manual Diff / Slide Review NO; Basophils Absolute Auto 0 /uL (0-100); Basophils Percent Auto 0.2 % (0-2); Eosinophils Absolute Auto 0 /uL (0-450); Eosinophils Percent Auto 0.3 % (2-4); Hematocrit 31.1 % (36-46); Hemoglobin 10.4 g/dL (12.0-16.0); Lymphocytes Absolute Auto 2000 /uL (1100-4500); Mean Corpuscular HGB Conc 33.5 % (30-36); Mean Corpuscular Hemoglobin 29.5 PG (26-34); Monocytes Absolute Auto 500 /uL (0-900); Neutrophils Absolute Auto 7100 /uL (1500-7000); Neutrophils Percent Auto 73.5 % (50-75); Platelet Count 230 X10^3/uL (150-400); Red Blood Cell Count 3.53 X10^6/uL (4.0-5.2); Red Cell Distribution Width 13.1 % (11.6-14.8); White Blood Cell Count 9.6 X10^3/uL (4.5-11.0)
[2020-09-12 06:50] LABS: Blood Urea Nitrogen 23 mg/dL (7-17); Calcium 8.9 mg/dL (8.4-10.2); Carbon Dioxide 30 mmol/L (22-32); Chloride 109 mmol/L (98-107); Estimated Glomerular Filt Rate > 60.0 mL/min (>60); Glucose 95 mg/dL (80-110); HEMOLYSIS < 15 (0-50); Magnesium 1.9 mg/dL (1.6-2.3); Potassium 4.3 mmol/L (3.4-5.1); Sodium 139 mmol/L (137-145)
[2020-09-12 07:58] VITALS: BP 139/67; PULSE 55; RESP 16; TEMP 36.5; O2SAT 98
[2020-09-12] MEDS: SODIUM CHLORIDE 0.9% 1,000 ML 125 ML IV ×2 (09:48→17:57)
[2020-09-12] MEDS: ENOXAPARIN 40 MG/0.4 ML SYRINGE SUBCUT (09:48)
[2020-09-12] MEDS: lisinopriL 20 MG TABLET PO (09:49)
[2020-09-12] MEDS: AMLODIPINE 5 MG TABLET 2.5 MG PO (09:49)
[2020-09-12] MEDS: LOPERAMIDE 2 MG CAPSULE PO (09:49)
[2020-09-12] MEDS: PANTOPRAZOLE 40 MG VIAL 20 MG IV ×2 (09:49→21:58)
--- NOTE | 2020-09-12 11:09 | PM.PN.1 ---
Subjective Subjective Date Patient Seen: 09/12/20 Time Patient Seen: 11:09 Interval history: No acute events overnight. Tolerating clears. Ambulating, pain well controlled. Exam Vital Signs (past 8 hours): - 09/12/20 04:30 09/12/20 07:58 Temperature 96.9 F L 97.7 F Pulse Rate 67 55 L Respiratory Rate 16 16 Blood Pressure 123/60 139/67 Pulse Oximetry 96 98 Oxygen Delivery Method Room Air Oxygen Flow Rate 0 Narrative Exam Narrative: GENERAL: Alert, fatigued, comfortable Appears stated age. Answers questions promptly and appropriately. Vital signs noted. HENT: Normocephalic, atraumatic. Hearing intact. Oral mucosa is pink and moist. EYES: Conjunctiva pink, sclera white, no periorbital swelling. CARDIOVASCULAR: Regular rate. No pedal edema. RESPIRATORY: Non-tachypneic, breathing comfortably on room air. GASTROINTESTINAL: Abdomen soft, mildly distended, dressings c/d/i; ostomy p/p/p with gas and dark liquid stool in the bag Objective Labs Result Diagrams: 09/12/20 06:35 09/12/20 06:35 Labs: Laboratory Results - last 24 hr 09/12/20 09/12/20 06:35 06:35 WBC 9.6 RBC 3.53 L Hgb 10.4 L Hct 31.1 L MCV 88.0 MCH 29.5 MCHC 33.5 RDW 13.1 Plt Count 230 Neut % (Auto) 73.5 Lymph % (Auto) 21.0 L [place] % (Auto) 5.0 Eos % (Auto) 0.3 L Baso % (Auto) 0.2 Neut # (Auto) 7100 H Lymph # (Auto) 2000 [place] # (Auto) 500 Eos # (Auto) 0 Baso # (Auto) 0 Sodium 139 Potassium 4.3 Chloride 109 H Carbon Dioxide 30 BUN 23 H Creatinine 0.92 Estimated GFR > 60.0 BUN/Creatinine Ratio 25.0 H Glucose 95 Calcium 8.9 Phosphorus 2.0 L D Magnesium 1.9 Assessment & Plan Assessment and plan (1) Diverticulitis of intestine with perforation and abscess: Qualifiers: Diverticulitis bleeding: without bleeding Diverticulitis site: unspecified part of intestinal tract Qualified Code(s): K57.80 - Diverticulitis of intestine, part unspecified, with perforation and abscess without bleeding Status: Acute (2) H/O: hysterectomy: Status: Resolved (3) Diverticulosis: Status: Acute (4) Hypothyroidism: Status: Chronic (5) Hypertension: Status: Chronic Assessment & Plan narrative: POD2 s/p sigmoid colectomy. Doing well over all. Tolerating p.o., making copious thin ostomy output. UA positive, and antibiotics started. Ambulating well, Britt out, pain is reasonably well controlled. Still needs ostomy teaching. Dispo planning pending patient can tolerate p.o., pain is well controlled, and she can manage her ostomy. Plan: Advanced diet as tolerated ambulate DVT ppx GI ppx home meds PRN pain and antiemetic meds Ostomy teaching COVID-19 COVID-19 status: Negative Result date/Date tested (Pos, Neg/Pending): 05/20/20 Time Spent With Patient Time with patient: 15-24 minutes
--- NOTE | 2020-09-12 14:49 | CM.DPC ---
DCP: continued: case received, EMR reviewed admission to present. Discussed in Team Rounds this morning. Noted the complexity of pt's surgery: urologic procedure with Dr. Chacko with bilateral uretal stent placement and then Laproscopic turned to Open colectomy with ileosotomy, requiring 2 surgeons: Dr. Parra and assisting Dr. Castle, all in setting of severe diverticulitis. Clamp Carrier Operator is seeing pt as well as outside sales account representative specialist Rosa Martin in her partnership with [facility] team. She is doing the second teaching session with pt and her Neville godoy. ? if pt will benefit from followup ostomy support or if pt will go directly to clinic followup with [facility] and RN Rosa...will be checking into this and be following as POC unfolds. Note that pt's d/c plan thus far is identified as home when stable for same as per initial DCP assessment note.
--- NOTE | 2020-09-12 15:22 | PC.NURSE ---
Ostomy Nurse Consult Note Nereida awake sitting in the chair with her Nazario at her side. I reviewed their questions and then Nereida practiced with the stoma model. We also reviewed the crusting technique and use of accessories. The stoma measures 32mm,moist, edematous and pink. The stoma bar is in place and the john-stoma skin is intact. The sutures are intact. She worked with me to change her appliance. I placed her in a Convatec moldable 45mm with clear pouch without a filter. Her midline niharika are intact with old bloody drainage. I change the dressing. We also discussed nutrition and dehydration. I gave her the [employer] New Patient Guide and she will review this over the weekend. The Hand Tier will most likely see Nereida on Tuesday. I also reviewed hernia prevention. I will return Tuesday if needed. I will follow up with patient at [facility].
[2020-09-12 16:14] VITALS: BP 125/64; PULSE 66; RESP 16; TEMP 36.3; O2SAT 96
[2020-09-12 21:36] VITALS: BP 123/67; PULSE 63; RESP 18; TEMP 36.5; O2SAT 96
[2020-09-12] MEDS: SODIUM CHLORIDE 0.9% FLUSH 10 ML IV (21:58)
[2020-09-12] MEDS: cephALEXin 250 MG CAPSULE 500 MG PO (21:58)
--- NOTE | 2020-09-12 22:13 | PC.NURSE ---
@ [phone] Rosa for ostomy teaching in room, mid-line incision with niharika well-approximated, john-skin intact, gauze drsg secured with tape; stoma pink; 125 mL black-green pudding texture; pt ambulated in hallway with SBA
[2020-09-13 04:30] VITALS: BP 137/72; PULSE 50; RESP 16; TEMP 36.1; O2SAT 97
[2020-09-13 06:05] LABS: Add Manual Diff / Slide Review NO; Basophils Absolute Auto 100 /uL (0-100); Basophils Percent Auto 0.9 % (0-2); Eosinophils Absolute Auto 200 /uL (0-450); Eosinophils Percent Auto 2.5 % (2-4); Hematocrit 31.7 % (36-46); Hemoglobin 10.7 g/dL (12.0-16.0); Lymphocytes Absolute Auto 2400 /uL (1100-4500); Lymphocytes Percent Auto 31.7 % (25-40); Mean Corpuscular HGB Conc 33.6 % (30-36); Mean Corpuscular Hemoglobin 29.7 PG (26-34); Mean Corpuscular Volume 88.5 fL (80-100); Monocytes Absolute Auto 500 /uL (0-900); Monocytes Percent Auto 6.3 % (3-14); Neutrophils Absolute Auto 4500 /uL (1500-7000); Neutrophils Percent Auto 58.6 % (50-75); Platelet Count 236 X10^3/uL (150-400); Red Blood Cell Count 3.58 X10^6/uL (4.0-5.2); White Blood Cell Count 7.7 X10^3/uL (4.5-11.0)
[2020-09-13 06:15] LABS: Blood Urea Nitrogen 13 mg/dL (7-17); Calcium 8.9 mg/dL (8.4-10.2); Carbon Dioxide 30 mmol/L (22-32); Chloride 109 mmol/L (98-107); Estimated Glomerular Filt Rate > 60.0 mL/min (>60); Glucose 89 mg/dL (80-110); HEMOLYSIS < 15 (0-50); Magnesium 1.8 mg/dL (1.6-2.3); Phosphorous 2.4 mg/dL (2.8-4.1); Potassium 4.1 mmol/L (3.4-5.1); Sodium 140 mmol/L (137-145)
[2020-09-13] MEDS: LEVOTHYROXINE 88 MCG TABLET PO (06:54)
[2020-09-13] MEDS: ACETAMINOPHEN 325 MG TABLET 650 MG PO ×3 (06:54→19:18)
[2020-09-13 07:13] VITALS: BP 144/70; PULSE 56; RESP 16; TEMP 36.3; O2SAT 97
[2020-09-13] MEDS: ENOXAPARIN 40 MG/0.4 ML SYRINGE SUBCUT (09:02)
[2020-09-13] MEDS: AMLODIPINE 5 MG TABLET 2.5 MG PO (09:02)
[2020-09-13] MEDS: cephALEXin 250 MG CAPSULE 500 MG PO ×2 (09:02→21:13)
[2020-09-13] MEDS: lisinopriL 20 MG TABLET PO (09:03)
[2020-09-13] MEDS: SODIUM CHLORIDE 0.9% FLUSH 10 ML IV ×2 (09:03→21:14)
[2020-09-13] MEDS: PANTOPRAZOLE 40 MG VIAL 20 MG IV ×2 (09:03→21:14)
--- NOTE | 2020-09-13 09:59 | PM.PN.1 ---
Subjective Subjective Date Patient Seen: 09/13/20 Time Patient Seen: 09:59 Interval history: No acute events overnight. Pasty ostomy output. Tolerating PO diet. Pt unclear on ostomy management. Verbalizes concern and uncertainty about stoma appliance and home care. Exam Vital Signs (past 8 hours): - 09/13/20 04:30 09/13/20 07:13 Temperature 96.9 F L 97.4 F L Pulse Rate 50 L 56 L Respiratory Rate 16 16 Blood Pressure 137/72 144/70 H Pulse Oximetry 97 97 Oxygen Delivery Method Room Air Oxygen Flow Rate 0 Narrative Exam Narrative: GENERAL: Alert, fatigued, comfortable Appears stated age. Answers questions promptly and appropriately. Vital signs noted. HENT: Normocephalic, atraumatic. Hearing intact. Oral mucosa is pink and moist. EYES: Conjunctiva pink, sclera white, no periorbital swelling. CARDIOVASCULAR: Regular rate. No pedal edema. RESPIRATORY: Non-tachypneic, breathing comfortably on room air. GASTROINTESTINAL: Abdomen soft, mildly distended, dressings c/d/i; ostomy p/p/p with gas and dark liquid stool in the bag; Thick pasty green ostomy output; <1L output/24 hours Objective Labs Result Diagrams: 09/13/20 05:54 09/13/20 05:54 Labs: Laboratory Results - last 24 hr 09/13/20 09/13/20 05:54 05:54 WBC 7.7 RBC 3.58 L Hgb 10.7 L Hct 31.7 L MCV 88.5 MCH 29.7 MCHC 33.6 RDW 13.0 Plt Count 236 Neut % (Auto) 58.6 Lymph % (Auto) 31.7 [place] % (Auto) 6.3 Eos % (Auto) 2.5 Baso % (Auto) 0.9 Neut # (Auto) 4500 Lymph # (Auto) 2400 [place] # (Auto) 500 Eos # (Auto) 200 Baso # (Auto) 100 Sodium 140 Potassium 4.1 Chloride 109 H Carbon Dioxide 30 BUN 13 Creatinine 0.81 Estimated GFR > 60.0 BUN/Creatinine Ratio 16.0 Glucose 89 Calcium 8.9 Phosphorus 2.4 L Magnesium 1.8 Assessment & Plan Assessment and plan (1) Diverticulitis of intestine with perforation and abscess: Qualifiers: Diverticulitis bleeding: without bleeding Diverticulitis site: unspecified part of intestinal tract Qualified Code(s): K57.80 - Diverticulitis of intestine, part unspecified, with perforation and abscess without bleeding Status: Acute (2) H/O: hysterectomy: Status: Resolved (3) Diverticulosis: Status: Acute (4) Hypothyroidism: Status: Chronic (5) Hypertension: Status: Chronic (6) Lower urinary tract symptoms (LUTS): Status: Acute (7) Ileostomy in place: Status: Acute Assessment & Plan narrative: POD3 s/p sigmoid colectomy. Doing well over all. Tolerating p.o., making thicker ostomy output. UA positive, quinolone resistant E coli. Antibiotics restarted two days ago, switched to PO yesterday. Not able to manage ostomy at home yet. Will need more ostomy teaching today and tomorrow. Dispo planning pending she can manage her ostomy. Plan: Advanced diet as tolerated ambulate DVT ppx GI ppx home meds PRN pain and antiemetic meds Ostomy teaching COVID-19 COVID-19 status: Negative Result date/Date tested (Pos, Neg/Pending): 09/09/20 Time Spent With Patient Time with patient: 15-24 minutes
--- NOTE | 2020-09-13 11:25 | PC.NURSE ---
Addendum entered by Trista Bui R.N. 09/13/20 13:13: Patient had some dried blood to her incision and dressing undone a small amount to r.lower corner, tape applied and patient just finished her lunch. she is sitting up in her chair and visiting with her . Original Note: Assess- Patient is doing well in her room this morning. Her illeostomy is putting out soft brown stool... She is passing gas and bt are active x4. Up independently to bathroom. Patient is voiding well. She has a couple of lap sites and sites where drains were that are all scab and healing. ML incision is dry and dressing is cdi. Dunseith present and area is pink in color. Stoma to illeostomy is beefy red in color and patients bowel tones are +x4.
[2020-09-13 14:00] VITALS: BP 122/71; PULSE 63; RESP 16; TEMP 36.6; O2SAT 96
--- NOTE | 2020-09-13 15:04 | CM.DPC ---
Addendum entered by Sabrina Mitchell LPN 09/13/20 15:21: A review of Rosa Cabrera' note of yesterday afternoon does indicate that she will not be seeing pt again until Tuesday and that the erp specialist is expected to work with pt on that day also. Original Note: DCP: continued: EMR reviewed and met with pt and her now in followup to the d/c plan and specifics of the ostomy management. Noted that Dr. Parra had indicated pt was expressing anxiety re her ability to manage the new illeostomy. Had discussed case yesterday with blower feeder dyed raw stock Rosa with ? of need for HH RN to partner with her and with pt on the ostomy care. Rosa noted she did not think this would be needed but teaching was still continuing. Discussed option of HH RN with both pt and her and explained purpose of same. Pt says she at this time does not feel competent with the ileostomy care and both wonder what they do if an emergent situation comes up while at home in terms of leakage etc. They do say that the teaching thus far and overall support given by Rosa has been extremely helpful and are not sure if adding in a HH RN would make things more confusing. Pt says she is hopeful that with one more session and a change to the appliance specifics might be all she needs. Pt plans to discuss this all with Rosa and take her advice. She is planning to see Rosa in clinic for followups. Other than this she says she feels very well supported at home with her and other family members that can provide supportive assist. Plan to check in tomorrow and follow prn.
[2020-09-13 15:40] VITALS: BP 120/77; PULSE 61; RESP 16; TEMP 36.4; O2SAT 97
[2020-09-13 20:38] VITALS: BP 130/74; PULSE 62; RESP 18; TEMP 37; O2SAT 96
[2020-09-13] MEDS: OXYCODONE IR 5 MG TABLET PO (21:13)
[2020-09-14 00:21] VITALS: BP 129/75; PULSE 61; RESP 16; TEMP 36.2; O2SAT 98
[2020-09-14] MEDS: ACETAMINOPHEN 325 MG TABLET 650 MG PO ×2 (01:15→05:38)
[2020-09-14 04:00] VITALS: BP 123/79; PULSE 58; RESP 16; TEMP 36.1; O2SAT 97
[2020-09-14] MEDS: LEVOTHYROXINE 88 MCG TABLET PO (05:38)
[2020-09-14 09:19] VITALS: BP 123/75; PULSE 70; RESP 16; TEMP 36.8; O2SAT 96
[2020-09-14] MEDS: PANTOPRAZOLE 40 MG VIAL 20 MG IV (09:51)
[2020-09-14] MEDS: AMLODIPINE 5 MG TABLET 2.5 MG PO (09:51)
[2020-09-14] MEDS: ENOXAPARIN 40 MG/0.4 ML SYRINGE SUBCUT (09:52)
[2020-09-14] MEDS: SODIUM CHLORIDE 0.9% FLUSH 10 ML IV (09:52)
[2020-09-14] MEDS: lisinopriL 20 MG TABLET PO (09:52)
[2020-09-14] MEDS: cephALEXin 250 MG CAPSULE 500 MG PO (09:56)
--- NOTE | 2020-09-14 10:12 | P.DS_ITS ---
History of Present Illness History of Present Illness Chief complaint: UROLOGY SURGERY & LAP POSS OPEN COLECTOMY W/ISG Narrative: This is a 69-year-old woman with history of hypertension, hypothyroid, and diverticulosis, who had laparoscopic drainage for perforated diverticulitis in April of this year. She comes in today for sigmoid colectomy. ROS: Constitutional: Denies chills, Denies fatigue, Denies fever(s) and Denies weakness Ears, Nose, Mouth, and Throat: Denies neck pain and Denies sore throat Cardiovascular: Denies chest pain, Denies irregular heart rhythm, Denies lightheadedness, Denies dyspnea and Denies dyspnea on exertion Respiratory: Denies cough, Denies dyspnea, Denies dyspnea on exertion and Denies wheezing Gastrointestinal: Reports as per HPI, Denies diarrhea, Denies nausea and Denies vomiting Genitourinary: Denies difficulty urinating and Denies dysuria Musculoskeletal: Denies back pain, Denies neck pain and Denies numbness Skin/Breast: Denies erythema and Denies rash Neurologic: Denies confusion, Denies numbness and Denies weakness Psychiatric: Denies anxiety and Denies confusion Endocrine: Denies fatigue and Denies flushing Allergic/Immunologic: Denies wheezing PE: GENERAL: Alert, oriented, comfortable. Appears stated age. Answers questions promptly and appropriately. Vital signs noted. HENT: Normocephalic, atraumatic. Hearing intact. EYES: Conjunctiva pink, sclera white, no periorbital swelling. CARDIOVASCULAR: Regular rate. No pedal edema. RESPIRATORY: Non-tachypneic, breathing comfortably on room air. GASTROINTESTINAL: Abdomen soft, nontender, nondistended GENITALURINARY: No flank tenderness. MUSCULOSKELETAL: Equal tone and mass bilaterally. SKIN: Warm, dry, soft, appropriate color for ethnicity. No other lesions, rashes, or wounds. NEURO: Alert and Oriented X 3. No gross sensory deficits, or cognitive issues. PSYCH: Appropriate affect and mood. Discharge Providers Provider Date of admission: 09/10/20 06:24 Discharge Date: 09/14/20 Primary care physician: Todd Garrison MD Consults: 09/10/20 16:42 Consult to Discharge Planning Routine Comment: 09/10/20 17:45 Consult to Ostomy Specialist Routine Comment: Consulting Provider: Discharge provider: Lesley Parra MD Summary Hospital Course Discharge Diagnosis: Diverticulitis, s/p laparoscopic converted to open sigmoid colectomy and diverting loop ileostomy Hospital Course: Pt went to surgery and had the above procedure. Her post op course included gradual return of bowel function, ongoing urinary symptoms, UTI diagnosed on UA and treated with abx, and grandual weaning off of pain meds. She had ostomy teaching, and was able to manage her ostomy, her pain, and take her UTI abx at home by POD#4 and was discharged. Status at Discharge Cognitive/behavioral status at discharge: oriented Functional status at discharge: independent ambulation Overall status at discharge: patient is progressing back to baseline Time Spent with Patient Time spent: Greater than 30 minutes Exam Vital Signs (past 8 hours): - 09/14/20 04:00 09/14/20 09:19 Temperature 97.0 F L 98.2 F Pulse Rate 58 L 70 Respiratory Rate 16 16 Blood Pressure 123/79 123/75 Pulse Oximetry 97 96 Oxygen Delivery Method Room Air Oxygen Flow Rate 0 Narrative Exam Narrative: GENERAL: Alert, fatigued, comfortable Appears stated age. Answers questions promptly and appropriately. Vital signs noted. HENT: Normocephalic, atraumatic. Hearing intact. Oral mucosa is pink and moist. EYES: Conjunctiva pink, sclera white, no periorbital swelling. CARDIOVASCULAR: Regular rate. No pedal edema. RESPIRATORY: Non-tachypneic, breathing comfortably on room air. GASTROINTESTINAL: Abdomen soft, mildly distended, dressings c/d/i; ostomy p/p/p with gas and thick pasty green ostomy output; <1L output/24 hours Objective Labs Result Diagrams: 09/13/20 05:54 09/13/20 05:54 Discharge Assessment & Plan Assessment and Plan Assessment: s/p sigmoid colectomy with diverting loop ileostomy; urinary tract infection identified during admission and treated (UTI was identified on UA sent during stent placement on day of surgery prior to colon resection, therefore this is not an iatrogenic infection. It is an infection that the patient came in with). Plan of Treatment: Pt to go home on PO pain med, five day course of PO antibiotics, bowel regimen, and ostomy management instructions. Plan to follow up on Tuesday or for stoma bar removal. Discharge Plan Discharge Plan Patient Disposition: Home Provider Discharge Comment: Hydration: Drink plenty of water to keep yourself hydrated. If you have a feeling of dry mouth or you notice your urine becomes darker, please increase your fluid intake. Your ostomy output should remain less than 1 liter per day, and thick like paste. If you notice it is thinner like soy sauce or more copious, or you are feeling dehydrated, you may increase the Immodium and add Metamucil gradually for thicker output (see bowel regimen below). Bowel regimen: Start with Imodium 2mg, one to two times daily. Watch your ostomy output and make sure it remains pasty and thick. It ostomy output stops, do not take anymo re Imodium until it starts again. You may gradually increase Imodium if needed to 2mg four times daily, or you may take two Imodium pills at once if one pill does not seem to help. The maximum dose is 4mg (two tablets) four times per day. If your output remains thin, you may add Metamucil (or preferred fiber supplement) 2 tsp in 8 oz water 1-3 times per day. Pain management: Take your prescription pain medication as needed so you are able to cough, take deep breaths, sleep well, and get up to walk around. You may take Tylenol as needed for pain, as well as NSAID's such as Aleve, Advil, Ibuprofen if you are able to do so without stomach upset. Make sure to take NSAID's with food. Do not take more than the recommended dose of each. Do not take more than 3000mg of Tylenol in 24 hours. There may be Tylenol in other medications such as cold medicine or headache remedies. Do not take more than 3000mg/day from all combined sources. Activity: Keep active with light activity such as gentle exercise and taking walks. Avoid lifting over 10lbs, abdominal core work, or very strenuous activity. Avoid being sedentary for prolonged periods. You may shower. After showering, you may replace a dry dressing over your incisional wounds as needed. If you notice any redness or drainage from the wounds, call our office and speak to Dr. Parra, or the doctor motor and controls tester. Concerns/emergencies: If you have any other concerns about your surgery or post operative care, please call the [facility] office number and speak to the office nurse or the surgeon motor and controls tester. If you become severely ill with significant chest pain, shortness of breath, significant bleeding, or other life threatening symptoms, please call 911 or go to the ER right away. Ostomy care: Continue to follow the instructions given by the ostomy nurse regarding care and management of your ostomy site. Antibiotic: Take all of your antibiotic until it is gone. Please call our office if he continue to have urinary symptoms, and we will recheck a urinalysis to ensure you have cleared the urinary tract infection. If you have urinary discomfort you may take [id number] Pyridium (also called AZO) to help with that discomfort. Discharge orders & Medications Prescriptions: New oxycodone 5 mg tablet 5 mg PO Q8H PRN (Reason: post operative pain) Qty: 20 RF: 0 cephalexin 500 mg capsule 500 mg PO Q12H Qty: 10 RF: 0 Continued calcium carbonate [Calcium 500] 500 mg calcium (1,250 mg) tablet 500 mg PO DAILY RF: 0 amlodipine 2.5 mg tablet 2.5 mg PO DAILY RF: 0 lisinopril 20 mg Tablet 20 mg PO DAILY RF: 0 levothyroxine 88 mcg tablet 88 mcg PO DAILY RF: 0 aspirin 81 mg Tablet,Delayed Release (Dr/Ec) 81 mg PO DAILY RF: 0 valacyclovir [Valtrex] 500 mg tablet 500 mg PO BID PRN (Reason: Break out) RF: 0 omega-3 fatty acids [Fish Oil Concentrate] 1,000 mg capsule 1,000 mg PO DAILY RF: 0 coenzyme Q10 [CoQ-10] 30 mg capsule 30 mg PO DAILY RF: 0 Discontinued magnesium citrate Solution 296 ml PO .per instructions Qty: 592 RF: 0 neomycin 500 mg tablet 1 gram PO TID Qty: 6 RF: 0 erythromycin 500 mg tablet 1,000 mg PO TID Qty: 6 RF: 0 Follow up/Referrals: Todd Garrison MD [Primary Care Provider] - Lesley Parra MD [Physician] - (Please call on Tuesday to make a follow up appointment to see Rosa and Dr. Parra at [facility] on . If you have any concerns and need to be seen sooner, you may come earlier in the week as well to see Dr. Parra or one of the other surgeons if you have an urgent concern and she is not available. afternoon is the only time we can coordinate with Rosa. ) Diet/Activity/Treatments Diet: Diet as Tolerated Diet comment: Diet instruction given by Ms. Cabrera. Eat a healthy diet and chew well. Skin/Wound/Dressing Care Report to your healthcare provider any signs of infection, such as:: chills, fever, night sweats, increased pain, unusual drainage and unusual redness Visit Report/Discharge Packet Instructions: How to Care for Your Colostomy or Ileostomy, DI for Heart Failure, DI for Cystoscopy, DI for Colectomy, DI for Laparoscopy, How to Prevent Falls, DI for Prescription Opioid Use, Oxycodone, Colostomy / Ileostomy, [facility]: Wound Care, Cephalexin (By mouth) Stand Alone Forms: Surgery Discharge Visit Report Forms: Congestive Heart Failure, Patient Portal/API, Stroke Signs & Symptoms Discharge Data Primary Care Provider: Todd Garrison Discharges patient from system. Discharge Date/Time: 09/14/20 12:25 Quality VTE Deep Vein Thrombosis/Pulmonary Embolism Present on Admission: No
--- NOTE | 2020-09-14 10:44 | CM.DPC ---
Addendum entered by Sabrina Mitchell LPN 09/14/20 12:41: Rosa did come in shortly after Dr. Parra was here and did another session with pt and her and provided her with some of the precut appliance materials. Follow as per plan. Original Note: DCP: continued. EMR reviewed and see that Dr. Parra is here and in process of finalizing pt's d/c to home today. Pt will followup directly with [facility] and guest relations coordinator Rosa for continued ostomy management. Pt is comfortable with the d/c to home for today.
--- NOTE | 2020-09-14 11:12 | PC.NURSE ---
Ostomy Nurse Consult Note Nereida up in the chair awake with her at her side. She will be leaving today after further ostomy teaching. She helped me remove her appliance and clean her skin. She has slight yeast around her stoma. The stoma is moist,red with the stoma bar in place and the sutures are intact. Her midline niharika are dry and intact with some dry crusty old blood. She has green/brown mushy effluent. She has been tolerating a regular diet. I placed her in a Coloplast cut to fit one piece, opaque, convex appliance with a filter and I added a barrier ring and barrier strips as well as a belt. Appliance #[id number]. We reviewed how to empty this appliance as well as how to cut the appliance, yet I did pre-cut a few appliances for her. She does not have any questions regarding nutrition or hydration. She will call [facility] office tomorrow and set up an appointment for follow up with Dr. Parra and myself. They have my contact number if they have any further questions.
--- NOTE | 2020-09-14 11:33 | PC.NURSE ---
Assess- Patient is going to to discharge after lunch today. Rosa RN and wound ostomy nurse did some teaching and care with patient and her . She is putting out a brown green liquid stool. Up ad daniel. O pain, incision site wnl.
== END 2020-09-14 12:25 | disposition home or self-care (01) | DRG 330 ==
PROVIDERS: Specialist; Admitting Provider Surgery; PCP Internal Medicine; Referring Provider Internal Medicine; Visit Provider Surgery
PROC: 0T788DZ Dilation of Bilateral Ureters with Intraluminal Device, Via Natural or Artificial Opening Endoscopic (ICD-10-PCS; principal; 2020-09-10 07:45)
PROC: 0DTE0ZZ Resection of Large Intestine, Open Approach (ICD-10-PCS; 2020-09-10 07:45)
DX: K57.32 Diverticulitis of large intestine without perforation or abscess without bleeding (principal); N39.0 Urinary tract infection, site not specified; Z16.23 Resistance to quinolones and fluoroquinolones; K66.0 Peritoneal adhesions (postprocedural) (postinfection); I10 Essential (primary) hypertension; E03.9 Hypothyroidism, unspecified; Z11.59 Encounter for screening for other viral diseases
CPT/HCPCS: 36415; 44141; 52332; 80048; 83735; 84100; 85025; 87077; 87086; 87186; 87635; C9803; C9113; C9290; J1100; J1170; J1650; J2405; J2543; J2704; J3010

== ENCOUNTER → 2020-11-27 09:07 | Outpatient (CLI) | payer MEDICARE, OTHER, SELFPAY ==
[2020-09-15 12:37] VITALS: BMI 25.0
--- NOTE | 2020-11-27 09:08 | DI.RAD.S_ITS ---
PROCEDURE: FL BARIUM ENEMA INDICATIONS: Check rectal anastomosis for leak/stenosis COMPARISON: None. FINDINGS: KUB: Preprocedural airfreight loading supervisor film demonstrates a normal bowel gas pattern. No suspicious abdominal calcifications. Visualized solid organ contours appear normal in size. No suspicious bony lesions. Colon: Single contrast evaluation demonstrates no extraluminal leakage of contrast. Numerous scattered colonic diverticula. There is slightly narrowed appearance of the sigmoid colon although unclear if this is expected postsurgical change or residual inflammation. Ileostomy is present. IMPRESSION: No specific findings to suggest anastomotic leak . Mildly narrowed appearance of the sigmoid colon although the exact clinical significance is unknown. Colonic diverticulosis Dictated by: Ramez Leary M.D. on 11/27/2020 at 11:40 Approved by: Ramez Leary M.D. on 11/27/2020 at 11:44
== END ==
PROVIDERS: PCP Family Medicine; Referring Provider Surgery; Visit Provider Surgery
DX: Z43.2 Encounter for attention to ileostomy (principal); K57.90 Diverticulosis of intestine, part unspecified, without perforation or abscess without bleeding; Z90.49 Acquired absence of other specified parts of digestive tract
CPT/HCPCS: 74270

== ENCOUNTER → 2020-12-15 10:05 | Outpatient (CLI) | payer MEDICARE, OTHER, SELFPAY ==
[2020-09-15 12:37] VITALS: BMI 25.0
[2020-12-15 11:05] LABS: COVID19 -Nasal RAPID Negative (Negative)
== END ==
PROVIDERS: PCP Family Medicine; Visit Provider Surgery
DX: Z01.812 Encounter for preprocedural laboratory examination (principal); Z20.822 Contact with and (suspected) exposure to COVID-19
CPT/HCPCS: 87635; C9803

== ENCOUNTER 2020-12-16 12:24 | Day surgery (SDC) | payer MEDICARE, OTHER, SELFPAY ==
[2020-09-15 12:37] VITALS: BMI 25.0
[2020-12-16] VITALS (7 sets, daily range): BP systolic 113–145; BP diastolic 41–73; PULSE 64–73; RESP 13–16; TEMP 36.3–36.6; O2SAT 95–100; BMI 25.6
[2020-12-16] MEDS: SODIUM CHLORIDE 0.9% 1,000 ML 200 ML IV (13:10)
--- NOTE | 2020-12-16 13:52 | PM.HP.1 ---
History of Present Illness History of Present Illness Date Patient Seen: 12/16/20 Time Patient Seen: 13:52 Chief complaint: DX COLONOSCOPY Narrative: This is a 70-year-old woman who is 3 months out from sigmoid resection and diverting ileostomy. She is here for follow-up colonoscopy prior to ileostomy takedown. She denies any melena, hematochezia, new or otherwise concerning symptoms. Her ileostomy is working well, and she had a barium enema a few weeks ago that showed passage of contrast through the colon. There was a narrowed area of the colon, which we will evaluate today and possibly dilate if necessary. ROS: Thirteen system review is otherwise negative other than as mentioned below and in HPI. PE: GENERAL: Well groomed and cooperative. Appears stated age. Answers questions promptly and appropriately. Vital signs noted. HENT: Normocephalic, atraumatic. Hearing intact. EYES: Conjunctiva pink, sclera white, no periorbital swelling. CARDIOVASCULAR: Regular rate. No pedal edema. RESPIRATORY: Non-tachypneic, breathing comfortably on room air. GASTROINTESTINAL: Abdomen soft and non-distended;ileostomy in place GENITALURINARY: No flank tenderness. MUSCULOSKELETAL: Equal tone and mass bilaterally. SKIN: Warm, dry, soft, appropriate color for ethnicity. No other lesions, rashes, or wounds. NEURO: Alert and Oriented X 3. No gross sensory deficits, or cognitive issues. PSYCH: Appropriate affect and mood. Patient History Medical History Chicken pox (~1954) Colon polyps (~1998) Diverticulitis of intestine with perforation and abscess (~2019) History of herpes simplex infection History of herpes simplex infection (~1999) Hypertension (~1994) Hypothyroidism (~1985) Lower urinary tract symptoms (LUTS) Measles (~1957) Mumps (~1954) Neck discomfort No active medical problems Osteopenia (~1999) Pelvic relaxation Surgical History Anesthesia H/O: hysterectomy (~1991) History of colon surgery (~05/20/20) History of surgery Hx of ectopic (~1978) S/P left unicompartmental knee replacement (10/2019) Family & Social History Family History Father Cancer Hypertension Mother Hypertension Osteoporosis COPD (chronic obstructive pulmonary disease) Brother Diabetes mellitus Sister Hypertension Osteopenia Grandmother Hypertension Social History: household members spouse Tobacco & Substance use: Smoking Status Never smoker alcohol intake current alcohol intake frequency a few times a week Substance Use Type does not use Meds Home Medications and Allergies Home Medications Medication Instructions Recorded Confirmed Type amlodipine 2.5 mg PO DAILY 05/20/20 12/16/20 History levothyroxine 88 mcg PO DAILY 05/20/20 12/16/20 History lisinopril 20 mg PO DAILY 05/20/20 12/16/20 History aspirin 81 mg PO DAILY 08/28/20 12/16/20 History valacyclovir [Valtrex] 500 mg PO BID PRN 08/28/20 11/25/20 History calcium carbonate 500 mg calcium 500 mg PO DAILY 08/29/20 12/16/20 History (1,250 mg) tablet coenzyme Q10 30 mg capsule 30 mg PO DAILY 09/02/20 12/16/20 History omega-3 fatty acids 1,000 mg 1,000 mg PO DAILY 09/02/20 12/16/20 History capsule estradiol See Rx Instructions VAGINAL DAILY 09/30/20 12/16/20 Rx #42.5 g Allergies Allergy/AdvReac Type Severity Reaction Status Date / Time diphenhydramine AdvReac Intermediate Verified 12/16/20 12:43 [From Benadryl] Exam Vital Signs (past 8 hours): - 12/16/20 12:50 Temperature 97.8 F Pulse Rate 66 Respiratory Rate 16 Blood Pressure 145/73 H Pulse Oximetry 100 Oxygen Delivery Method Room Air Assessment & Plan Assessment and plan (1) S/P colectomy: Status: Acute (2) Ileostomy in place: Status: Acute Assessment & Plan narrative: Risks and benefits of screening colonoscopy and possible polypectomy were discussed with the patient including risk of bleeding, perforation, need for additional procedures, risks of anesthesia. The patient desires to proceed with the colonoscopy procedure. COVID-19 COVID-19 status: Negative Result date/Date tested (Pos, Neg/Pending): 12/15/20 Time Spent With Patient Time with patient: 15-24 minutes Quality VTE Deep Vein Thrombosis/Pulmonary Embolism Present on Admission: No
--- NOTE | 2020-12-16 13:56 | PM.OP.ENDO ---
Operative Date/Time/Diagnoses Date of procedure: 12/16/20 Time of procedure: 13:56 Pre-op diagnosis: History of sigmoid colectomy, diverting ileostomy Procedure & Clinicians Study performed: Colonoscopy Procedural sedation performed by the endoscopist Same procedure as scheduled: Yes Indications: Diverting ileostomy after sigmoid resection, preoperative scope for ileostomy takedown Surgeon: Lesley Parra Procedure Notes SCOAP/Timeout: Performed Procedure in detail: The patient was brought to the room and placed in left lateral decubitus position with all bony prominences padded. A time-out was performed and then the patient was given procedural sedation starting with 2mg of Versed and 100 mcg of fentanyl. A total of 5 mg of Versed and 200 micro g of fentanyl were given for the entire procedure. Vitals were monitored throughout the procedure and remained stable. Once adequately sedated, the procedure was begun. A rectal exam was performed revealing no abnormalities. The colonoscope was then introduced to the rectum and advanced to the cecum in the usual fashion. The scope was passed through the area of the sigmoid anastomosis, without difficulty. The cecum was identified by the appendiceal orifice, the mucosal tri-fold, and the ileocecal valve. The scope was then retracted while rotating side to side and examining each mucosal fold. Evidence of diversion colitis inflammation of the colonic mucosa was seen. No polyps were seen. On retraction , the anastomosis was carefully evaluated. It was of the same caliber as the surrounding bowel, and there was no evidence of stricture. The scope was then withdrawn from the rectum the procedure was concluded. The patient tolerated the procedure well and was transferred to the PACU in stable condition. Scope withdrawal time: 9 Sedation minutes: 18 Findings: other findings (Patent anastomosis, without caliber change or stricture relative to the surrounding colon) Specimen(s): none sent Complications: none Impression: Patent anastomosis, no evidence of stricture, or caliber difference from the surrounding colon Post-procedure Recommendations: Colonscopy in 10 years Follow up: as needed Disposition: PACU
[2020-12-16] MEDS: MIDAZOLAM 5 MG/5 ML VIAL IV (14:10)
[2020-12-16] MEDS: fentaNYL 250 MCG/5 ML INJ IV (14:10)
--- NOTE | 2020-12-16 15:00 | SUR.PHASEII ---
Pt has met discharge criteria: VSS, denied pain or nausea, able to drink fluids without difficulty. Discussed discharge instructions, all questions answered. Transported via W/C to private vehicle.
== END 2020-12-16 15:02 | disposition home or self-care (01) ==
PROVIDERS: PCP Family Medicine; Referring Provider Surgery; Visit Provider Surgery
PROC: 0DJD8ZZ Inspection of Lower Intestinal Tract, Via Natural or Artificial Opening Endoscopic (ICD-10-PCS; CPT 45378; principal; 2020-12-16 13:45)
DX: Z09 Encounter for follow-up examination after completed treatment for conditions other than malignant neoplasm (principal); Z87.19 Personal history of other diseases of the digestive system; Z90.49 Acquired absence of other specified parts of digestive tract; Z93.2 Ileostomy status
CPT/HCPCS: 45378; 99152; J2250; J3010

== ENCOUNTER → 2021-01-09 09:43 | Outpatient (CLI) | payer MEDICARE, OTHER, SELFPAY ==
[2020-09-15 12:37] VITALS: BMI 25.0
[2021-01-09 10:46] LABS: COVID19 -Nasal RAPID Negative (Negative)
== END ==
PROVIDERS: PCP Family Medicine; Visit Provider Surgery
DX: Z20.822 Contact with and (suspected) exposure to COVID-19 (principal)
CPT/HCPCS: 87635

== ENCOUNTER 2021-01-12 08:36 | Inpatient (IN) | payer MEDICARE, OTHER, SELFPAY ==
[2020-09-15 12:37] VITALS: BMI 25.0
[2021-01-12] VITALS (13 sets, daily range): BP systolic 110–144; BP diastolic 54–89; PULSE 68–89; RESP 9–18; TEMP 35.8–36.8; O2SAT 93–100; BMI 25.6
--- NOTE | 2021-01-12 | PATH_ITS ---
[facility] Accession Number: [id number] . 01 Material submitted: . small bowel - SMALL BOWEL OSTOMY . 01 Clinical history: . IP ILEOSTOMY TAKEDOWN AND ANESTOMOSIS . 02 Diagnosis: Small Bowel Ostomy, Takedown: Consistent with stoma. No evidence of neoplasm. MRV 01/14/2021 0956 Local . 02 Electronically signed: . Eugenio Park MD, PhD, Pathologist NPI- [id number] . 01 Gross description: . The specimen is received in formalin, labeled small bowel ostomy and consists of two chaudhari-pink mucosal tissue fragments measuring 2.0 x 1.0 x 0.4 cm in aggregate. The margins are inked blue. The specimen is entirely submitted in cassette A1. ([id number]) /V 01/13/2021 1221 Local . 02 Pathologist provided ICD-10: Z93.2 . 02 CPT . 022542 Performed at: 01 [facility] [address] [facility], [place], [place] [id number] MD Neville Howard MD Phone: [phone] Performed at: 02 [facility] [place] [address] [place], [place] [id number] MD Marimar Manzanares MD Phone: [phone]
[2021-01-12] MEDS: LACTATED RINGERS 1,000 ML 100 ML IV (08:56)
--- NOTE | 2021-01-12 09:10 | PM.PREOP ---
Pre-operative Note COVID-19 COVID-19 status: Negative Result date/Date tested (Pos, Neg/Pending): 01/09/21 Interval Note History & Physical reviewed/Exam performed by Physician: Yes Changes to H&P: No
[2021-01-12] MEDS: metroNIDAZOLE 500 MG/100 ML PIGGYBACK 100 MG IV (09:50)
[2021-01-12] MEDS: CEFAZOLIN 2 GM/100 ML FROZ.PIGGY IV (10:06)
--- NOTE | 2021-01-12 10:44 | SUR.OPER ---
Supine on padded OR bed, head on pillow, arms secured on padded arm boards at <90 degrees abduction, legs uncrossed, safety belt at thigh, tape over blanket over lower legs.
[2021-01-12] MEDS: BUPIVACAINE 0.5% W/ EPI (PF) 30 ML VIAL INJ (12:00)
--- NOTE | 2021-01-12 12:23 | PM.OP.1 ---
Operative Date/Time/Diagnoses Date of procedure: 01/12/21 Time of procedure: 12:24 Pre-op diagnosis: ileostomy in place Post-op diagnosis: other (ileostomy, dense adhesions) Procedure & Clinicians Procedure: Ileostomy takedown Small bowel ostomy resection Same procedure as scheduled: Yes Indications: Ileostomy in place; colonic anastomosis has been evaluated and found to be patent and without leak Surgeon: Lesley Parra Anesthesia Type: General Operative Notes Findings: Intact small bowel with dense adhesions Specimen(s): other (End of small bowel ostomy) Estimated Blood Loss (mL): 5 Blood products transfused: none Procedure in detail: The patient was brought into the OR, placed supine on the OR table, and appropriate preoperative antibiotics were given. Sequential compression devices were placed on both legs and turned on. General anesthesia was induced and the patient was intubated with an LMA by the anesthesiologist. The abdomen was prepped and draped in sterile fashion for ileostomy takedown. A surgical time out was conducted. Local anesthetic was infiltrated into the skin surrounding the ostomy site. A 15 blade was used to make a modified elliptical incision around the ileostomy site. Dissection was carried down to through the skin and dermis to the subcutaneous fat and peristomal adhesions. Dissection was carried circumferentially around the ileostomy until both limbs of the ostomy loop were dissected free. There were extensive adhesions to the fascia and below the fascia. Once these were taken down adequately to anastomose the bowel, a blue load SWATI stapler was brought into the field and a side by side functional end to end anastomosis was created. The stoma end was excised, leaving clean normal appearing small bowel anastomsis. The open end was then closed with running 3-0 PDS suture, and lemberted with 3-0 silk suture. The distal end was compressed and gas and fluid were passed across the anastomosis with no leak. The anastomosis was palpated and found to be widely patent. The remaining local anesthetic was given in the skin and soft tissue. The anastomosed bowel was then placed through the facial opening and the fascia was then closed with running 0 vicryl, and the wound was then irrigated. The skin was then closed with nylon mattress sutures and dressed with gauze and tape. The patient was awakened from anesthesia and extubated. She tolerated the procedure well. Needle, sponge and instrument counts were correct x 2. The patient was transferred to PACU in stable condition. Complications: none Post-operative Condition: stable Disposition: PACU
[2021-01-12] MEDS: ACETAMINOPHEN 325 MG TABLET 650 MG PO ×2 (13:55→19:18)
--- NOTE | 2021-01-12 14:12 | PC.NURSE ---
Patient alert, oriented rates pain 4/10 to abdomen, given 650mg tylenol as requested. Denies nausea ate some soup and drinking fluids. BT+ Left quads, right quads hypoactive. Dressing to right abdomen, CDI. Scd's on, patient oriented to room and call light.
[2021-01-12] MEDS: OXYCODONE IR 5 MG TABLET PO ×2 (15:26→23:16)
[2021-01-12] MEDS: LACTATED RINGERS 1,000 ML 42 ML IV (15:27)
[2021-01-13 00:08] VITALS: BP 132/78; PULSE 73; RESP 16; TEMP 36.5; O2SAT 98
--- NOTE | 2021-01-13 01:20 | PC.NURSE ---
2320: patient is alert and oriented. Breath sounds CTA with RA sat of 98%. HRR. Denies nausea. BT present and states she has passed flatus. Complains of 6/10 incisional pain so medicated with Oxycodone; is also receiving scheduled Tylenol. Denies dysuria, frequency or urgency with urination but is concerned about UTI as gets frequent infections. Dressing to abdomen is CDI. Is able to turn self in bed and gets up to bathroom with SBA. Wearing bilateral calf SCD's. Fall risk score is moderate and patient is calling for assistance appropriately so alarm is not currently in use.
[2021-01-13] MEDS: ACETAMINOPHEN 325 MG TABLET 650 MG PO ×4 (01:47→21:58)
[2021-01-13 04:48] VITALS: BP 130/60; PULSE 67; RESP 18; TEMP 36.7; O2SAT 98
[2021-01-13 05:20] LABS: Add Manual Diff / Slide Review NO; Basophils Absolute Auto 100 /uL (0-100); Basophils Percent Auto 0.4 % (0-2); Eosinophils Absolute Auto 0 /uL (0-450); Eosinophils Percent Auto 0.1 % (2-4); Hematocrit 39.4 % (36-46); Lymphocytes Absolute Auto 1700 /uL (1100-4500); Lymphocytes Percent Auto 12.3 % (25-40); Mean Corpuscular HGB Conc 32.9 % (30-36); Mean Corpuscular Volume 91.2 fL (80-100); Monocytes Absolute Auto 700 /uL (0-900); Monocytes Percent Auto 5.4 % (3-14); Neutrophils Absolute Auto 11200 /uL (1500-7000); Neutrophils Percent Auto 81.8 % (50-75); Platelet Count 246 X10^3/uL (150-400); Red Blood Cell Count 4.32 X10^6/uL (4.0-5.2); Red Cell Distribution Width 13.3 % (11.6-14.8); White Blood Cell Count 13.7 X10^3/uL (4.5-11.0)
[2021-01-13 05:25] LABS: BUN Creatinine Ratio 18.5 (6-22); Blood Urea Nitrogen 17 mg/dL (7-17); Calcium 9.4 mg/dL (8.4-10.2); Carbon Dioxide 26 mmol/L (22-32); Chloride 107 mmol/L (98-107); Estimated Glomerular Filt Rate > 60.0 mL/min (>60); Glucose 103 mg/dL (80-110); HEMOLYSIS < 15 (0-50); Magnesium 1.8 mg/dL (1.6-2.3); Phosphorous 3.7 mg/dL (2.8-4.1); Potassium 4.6 mmol/L (3.4-5.1); Sodium 137 mmol/L (137-145)
[2021-01-13] MEDS: LEVOTHYROXINE 88 MCG TABLET PO (05:47)
[2021-01-13] MEDS: OXYCODONE IR 5 MG TABLET PO ×3 (05:47→21:58)
[2021-01-13] MEDS: MAGNESIUM SULFATE 2 GM/50 ML PIGGYBACK IV (06:58)
[2021-01-13 07:37] VITALS: BP 137/73; PULSE 65; RESP 21; TEMP 36.3; O2SAT 99
[2021-01-13] MEDS: AMLODIPINE 5 MG TABLET 2.5 MG PO (08:07)
[2021-01-13] MEDS: lisinopriL 20 MG TABLET PO (08:09)
[2021-01-13] MEDS: HEPARIN 5,000 UNIT/ML VIAL 5000 UNIT SUBCUT ×2 (08:09→21:59)
--- NOTE | 2021-01-13 11:27 | PC.NURSE ---
Assess- Patient is a&ox3, she was given an oxycodone around 5:45. This seems to help patient some, she was also given tylenol. She wants to sleep more than anything at this point. Dressing to lower abdomen is cdi, bowel tones are active x4. She has ambulated in the halls with her this morning, he left to go to work. Patient is a stand by assist with iv pole in room to unplug. She is napping now and did not want to be disturbed. New iv started to her r.inner forearm, 22g for ivf at 42cc/hr. Old iv to l.upper arm infiltrated. Taken out and pressure dressing applied, area is swollen and tender to touch but not red.
--- NOTE | 2021-01-13 11:58 | P.PN_ITS ---
Subjective Subjective Date Patient Seen: 01/13/21 Time Patient Seen: 10:30 Interval history: No acute events overnight. The patient is passing gas. She has not slept well. Overall she feels well and pain is well controlled. Exam Vital Signs (past 8 hours): - 01/13/21 04:48 01/13/21 07:37 Temperature 98.1 F 97.3 F L Pulse Rate 67 65 Respiratory Rate 18 21 Blood Pressure 130/60 137/73 Pulse Oximetry 98 99 Oxygen Delivery Method Room Air Oxygen Flow Rate 0 Narrative Exam Narrative: CARDIOVASCULAR: Regular rate. No pedal edema. RESPIRATORY: Non-tachypneic, breathing comfortably on room air. GASTROINTESTINAL: Abdomen soft and non-distended; incision is clean dry and intact GENITALURINARY: No flank tenderness. MUSCULOSKELETAL: Equal tone and mass bilaterally. SKIN: Warm, dry, soft, appropriate color for ethnicity. No other lesions, rashes, or wounds. NEURO: Alert and Oriented X 3. No gross sensory deficits, or cognitive issues. PSYCH: Appropriate affect and mood. Objective Labs Result Diagrams: 01/13/21 04:50 01/13/21 04:50 Labs: Laboratory Results - last 24 hr 01/13/21 01/13/21 04:50 04:50 WBC 13.7 H RBC 4.32 Hgb 13.0 Hct 39.4 MCV 91.2 MCH 30.0 MCHC 32.9 RDW 13.3 Plt Count 246 Neut % (Auto) 81.8 H Lymph % (Auto) 12.3 L Dolores % (Auto) 5.4 Eos % (Auto) 0.1 L Baso % (Auto) 0.4 Neut # (Auto) 32934 H Lymph # (Auto) 1700 Dolores # (Auto) 700 Eos # (Auto) 0 Baso # (Auto) 100 Sodium 137 Potassium 4.6 Chloride 107 Carbon Dioxide 26 BUN 17 Creatinine 0.92 Estimated GFR > 60.0 BUN/Creatinine Ratio 18.5 Glucose 103 Calcium 9.4 Phosphorus 3.7 Magnesium 1.8 [facility] Medical History Chicken pox (~195) Colon polyps (~1998) Diverticulitis of intestine with perforation and abscess (~2019) History of herpes simplex infection History of herpes simplex infection (~1999) Hypertension (~1994) Hypothyroidism (~1985) Lower urinary tract symptoms (LUTS) Measles (~1957) Mumps (~1954) Neck discomfort No active medical problems Osteopenia (~1999) Pelvic relaxation Surgical History Anesthesia H/O: hysterectomy (~1991) History of colon surgery (~05/20/20) History of surgery Hx of ectopic (~1978) S/P left unicompartmental knee 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 She is doing well. She is passing gas. We advanced her diet to full liquid. She is on DVT prophylaxis with heparin b.i.d., she has Daily labs ordered, she has p.o. and IV pain meds ordered. I have written her discharge information and prescribed her pain medication to her pharmacy. When she is passing stool, and her pain is well controlled with p.o. pain meds only, she be discharged by my partner Dr. Castle later this week. I explained to the patient that I will be gone out of town for the next 5 days. I have signed of her care to Dr. Castle, who will manage her while I am gone. COVID-19 COVID-19 status: Negative Result date/Date tested (Pos, Neg/Pending): 01/09/21 Time Spent With Patient Time with patient: 15-24 minutes Quality VTE Deep Vein Thrombosis/Pulmonary Embolism Present on Admission: No
[2021-01-13 12:01] VITALS: BP 125/73; PULSE 62; RESP 23; TEMP 36.7; O2SAT 100
--- NOTE | 2021-01-13 13:09 | CM.DANOTE ---
Discharge Planning/Care Management DCP: assessment: case received, EMR reviewed and met now with pt. Reintroduced self and role. (worked with pt as her dcplanner during her stay here in August 2020 when she had the initial surgery and placement of ostomy.) Pt is a 70 year old female who admitted yesterday to for a scheduled Ileostomy take-down. Personal Lines Insurance Advisor/Roseann will be seeing her. Pt confirms she will again go home with her supportive spouse Neville at d/c. DCP team will follow prn for any needs that may arise. INPT admission status: confirmed by UR KAREEN Nolasco. CM Discharge Assessment Start: 01/13/21 13:08 Freq: Status: Active Protocol: Document 01/13/21 13:08 ITV (Rec: 01/13/21 13:09 ITV [id number]) Discharge Planning Assessment Advance Directives? No History Provided By Patient,Significant Other, Medical Record Prior Living Arrangements House Household Members spouse Independent with ADL's Yes Is patient alert and oriented? Yes Discharge Plan Home Transportation Arrangement Spouse Pre-Anesthesia Assessment Start: 01/07/21 08:03 Freq: Status: Complete Protocol: Document 01/07/21 08:03 VLJ (Rec: 01/07/21 08:16 VLJ [id number]) Pre-Anesthesia Assessment Preferred Name Jenny Patient Information Reviewed Via Chart Review,Phone Assessment Assessment Completed With Patient Comment Covid test 01/12 at Primary Care Provider Cresencio Doss Seen Specialist in Last 12 Months Yes Specialist Seen Emergency,General surgeon, Customer Data Technician,Urologist Primary Language Central African Preferred Language Central African Progress Clerk Required No Height 157.48 cm Hearing Ability Normal Visual Impairment Partially Limited Visual Assist Glasses Dentition Type Teeth, Natural Present Barriers to Learning Visual Other Aids No Comment reading glasses Hx Anesthesia Reactions No Hx Family Anesthesia Reaction No Hx Malignant Hyperthermia No Hx Blood Transfusions No Hx Blood Transfusion Reaction No Anesthesia Review Requested No Senior Human Resources Representative No alcohol intake current alcohol intake frequency a few times a month Smoking Status Never smoker Substance Use Type does not use Pain Present Denied Pain History of Falling (Recent or History of No ) Patient is completely paralyzed or No completely immobile Ambulatory Aid None/bed rest/nurse assist Gait/Transferring Normal/bedrest/immobile Mental Status Oriented to own ability Is patient on oxygen? No Does patient have ANNA/SOB No Hx Sleep Apnea No CPAP/BIPAP use not prescribed Currently Taking a Beta Jordyn No Can You Climb a Flight of Stairs Without Yes SOB Hx Chest Pain No Hx SOB No Hx Syncope or Dizziness No Anti-Coagulant Therapy Yes: Aspirin 81 mg Has a Parking Lot Signaler No Cardiac Testing No Hx Pacemaker/ICD No Pacemaker Rep Required? No Cardiac Clearance Received Not Applicable Diet Type At Home Regular dysphagia No Comment Ileostomy Bladder Pattern Urgency Urinary Catheter Present No Hx Urinary Self Catheterization No Diabetes No Patient No Lactating No Hx Drug Resistant Organism No Presence of External or Internal Medical Yes: rt knee hardware, Devices ileostomy Have you had any close contact with No someone diagnosed with COVID-19? Are you experiencing any of these No symptoms symptoms? Evaluation/Screening for possible COVID- Yes 19 infection completed? Marital Status Lives With spouse Prior Living Arrangements House Number of Floors (Floors) Two Floors Support System Spouse Does the Patient Have Assistance After Yes Surgery Patient Discharge Plan Description Return Home Feels Safe in Current Environment Yes Been Physically Hurt or Threatened By a No Person in Current Environment If Yes, Provider Notified Yes Are you currently considering suicide? No Do you have a plan to hurt yourself or No Plan others? Do You Have Any Spiritual Beliefs That No May Affect Your HC Choices? Do You Have Any Cultural Practices That No May Affect Your HC Choices? Who Can We Speak to About Patient's Care Friends & Family Identifying Code for Release of Patient Declined Information Health Care Proxy/Next of Kin Neville () Health Care Proxy Emergency Contact Name Neville () Emergency Contact Advance Directives? No Power of Junior Web Designer No PAC Instructions Assistance for 24 hours post- op,Do not shave/clip surgical site,Medications to take/avoid ,No ETOH/petroleum product on skin DOS,NPO,Post-op transportation,Pre-surgical wash,Sensory aids,Sturdy shoes /comfortable clothes,Do not bring valuables and remove jewelry
[2021-01-13 15:38] VITALS: BP 120/63; PULSE 65; RESP 16; TEMP 36.4; O2SAT 100
[2021-01-13] MEDS: SODIUM CHLORIDE 0.9% FLUSH 10 ML IV ×2 (17:46→22:08)
[2021-01-13] MEDS: LORazepam 2 MG/ML INJ 0.5 MG IV (17:46)
[2021-01-13 20:49] VITALS: BP 102/59; PULSE 68; RESP 16; TEMP 36.7; O2SAT 96
[2021-01-13] MEDS: MELATONIN 3 MG TABLET PO (21:58)
[2021-01-14 02:00] VITALS: BP 112/59; PULSE 64; RESP 16; TEMP 36.4; O2SAT 97
--- NOTE | 2021-01-14 02:10 | PC.NURSE ---
Addendum entered by Kaye Triplett R.N. 01/14/21 04:30: Now requested/medicated with Tylenol (which she declined to take earlier) for 4/10 incisional pain. Original Note: patient is alert and oriented. Breath sounds diminished at bases but CTA with RA sat of 97%; discussed importance of using I.S. and patient verbalizes understanding. HRR. Denies nausea. BT present and is passing flatus. Dressing to abdomen is CDI. Denies dysuria, frequency or urgency with urination. Is independent with mobility and steady on feet; denies weakness. Refuses SCD's so reminded to ankle wave. Denies pain at present time and declined scheduled Tylenol. Has been able to sleep for past several hours. Fall risk score is moderate but bed alarm is not being used and patient verbalizes understanding to call for assistance if feeling weak or lightheaded when getting up.
[2021-01-14] MEDS: ACETAMINOPHEN 325 MG TABLET 650 MG PO ×2 (04:29→13:39)
[2021-01-14 05:17] LABS: Add Manual Diff / Slide Review NO; Basophils Absolute Auto 100 /uL (0-100); Eosinophils Absolute Auto 100 /uL (0-450); Eosinophils Percent Auto 1.6 % (2-4); Hemoglobin 11.7 g/dL (12.0-16.0); Lymphocytes Absolute Auto 2200 /uL (1100-4500); Lymphocytes Percent Auto 31.1 % (25-40); Mean Corpuscular HGB Conc 33.5 % (30-36); Mean Corpuscular Hemoglobin 30.7 PG (26-34); Mean Corpuscular Volume 91.8 fL (80-100); Monocytes Absolute Auto 500 /uL (0-900); Neutrophils Absolute Auto 4200 /uL (1500-7000); Neutrophils Percent Auto 59.3 % (50-75); Platelet Count 194 X10^3/uL (150-400); Red Blood Cell Count 3.82 X10^6/uL (4.0-5.2); Red Cell Distribution Width 13.3 % (11.6-14.8); White Blood Cell Count 7.1 X10^3/uL (4.5-11.0)
[2021-01-14 05:27] LABS: BUN Creatinine Ratio 15.4 (6-22); Blood Urea Nitrogen 14 mg/dL (7-17); Calcium 8.7 mg/dL (8.4-10.2); Carbon Dioxide 30 mmol/L (22-32); Chloride 107 mmol/L (98-107); Estimated Glomerular Filt Rate > 60.0 mL/min (>60); Glucose 93 mg/dL (80-110); HEMOLYSIS < 15 (0-50); Phosphorous 2.5 mg/dL (2.8-4.1); Potassium 4.2 mmol/L (3.4-5.1); Sodium 135 mmol/L (137-145)
[2021-01-14] MEDS: LEVOTHYROXINE 88 MCG TABLET PO (05:41)
[2021-01-14 07:33] VITALS: BP 113/63; PULSE 65; RESP 20; TEMP 36.6; O2SAT 96
[2021-01-14] MEDS: lisinopriL 20 MG TABLET PO (08:57)
[2021-01-14] MEDS: HEPARIN 5,000 UNIT/ML VIAL 5000 UNIT SUBCUT (08:58)
[2021-01-14] MEDS: AMLODIPINE 5 MG TABLET 2.5 MG PO (08:58)
--- NOTE | 2021-01-14 10:37 | PC.NURSE ---
Patient had a small formed bowel movement after ambulating in the halls. Called who is aware and will write up discharge paperwork. After she eats general diet, if all goes well, patient will discharge home around 1330. Dressing to small incision to r.mid abdomen changed with non stick telfa and allevyn dressing. is in room and aware of what is going on. Patient is sitting up in the chair comfortably and denies pain. She slept much better last night.
--- NOTE | 2021-01-18 11:03 | P.DS_ITS ---
History of Present Illness History of Present Illness Date Patient Seen: 01/18/21 Time Patient Seen: 11:03 Chief complaint: IP ILEOSTOMY TAKEDOWN & ANESTOMOSIS Narrative: 70-year-old female who developed diverticulitis with abscess formation underwent a laparoscopic drainage of intra-abdominal abscess April 2020. Subsequently she had a sigmoid resection with primary anastomosis and diverting loop ileostomy August 2020. She presents today for elective ileostomy reversal. Discharge Providers Provider Date of admission: 01/12/21 08:36 Discharge Date: 01/14/21 Primary care physician: Cresencio Doss DO Consults: 01/12/21 12:46 Consult to Discharge Planning Routine Comment: Discharge provider: Harshad Castle MD Summary Hospital Course Discharge Diagnosis: Presence of ileostomy Hospital Course: Patient underwent takedown of ileostomy 01/12/2021. Operation was unremarkable. She had return of bowel function and her diet was advanced as tolerated. At the time of discharge she is afebrile tolerating a low residual diet, ambulatory, pain is well controlled. Exam Vital Signs (past 8 hours): Oxygen Delivery Method Room Air Oxygen Flow Rate 0 Narrative Exam Narrative: General elderly female alert oriented no acute distress Chest nonlabored respirations on room air Heart regular rhythm Abdomen soft appropriately tender to palpation on ileostomy takedown site is clean dry intact which suture no drainage Objective Labs Result Diagrams: 01/14/21 05:00 01/14/21 05:00 [facility] Medical History Chicken pox (~1954) Colon polyps (~1998) Diverticulitis of intestine with perforation and abscess (~2019) History of herpes simplex infection History of herpes simplex infection (~1999) Hypertension (~1994) Hypothyroidism (~1985) Lower urinary tract symptoms (LUTS) Measles (~1957) Mumps (~1954) Neck discomfort No active medical problems Osteopenia (~1999) Pelvic relaxation Surgical History Anesthesia H/O: hysterectomy (~1991) History of colon surgery (~05/20/20) History of surgery Hx of ectopic (~1978) S/P left unicompartmental knee replacement (10/2019) Family History Father Cancer Hypertension Mother Hypertension Osteoporosis COPD (chronic obstructive pulmonary disease) Brother Diabetes mellitus Sister Hypertension Osteopenia Grandmother Hypertension Social History household members: spouse Smoking Status: Never smoker alcohol intake: current Discharge Plan Discharge Plan Patient Disposition: Home Provider Discharge Comment: Your surgery: You had takedown and reconnection of your ileostomy. Your stool output: It usually takes 8 weeks or more for bowel function to normalize after ileostomy takedown. If your stool is too loose, you may take Immodium as needed. If you feel constipated you may use Miralax as needed. Drink plenty of water to keep yourself hydrated. If you feel dry mouth or notice your urine becomes darker, increase your fluid intake. If you have loose stool you may use Immodium 2mg one to three times daily. Use Metamucil (or preferred fiber supplement) 2tspn in 8 oz water twice daily -- may go up to three times daily if needed Diet: Low residual diet until follow up visit. Metamucil for fiber. Pain meds: Take your prescription pain medication as needed so you are able to cough, take deep breaths, sleep well, and get up to walk around. Try additionally taking Tylenol as needed for pain, as well as NSAID's such as Aleve, Advil, Ibuprofen if you are able to do so without stomach upset. Make sure to take NSAID's with food. Do not take more than the recommended dose of each. Activity: Keep active with light activity such as gentle exercise and taking walks. Avoid lifting over 10lbs, abdominal core work, or very strenuous activity for six weeks after surgery. Avoid being sedentary for prolonged periods. Showering and wound care: You may shower. After showering, pat dry the incision and keep a dry dressing over your incisional wounds as needed. If you notice any redness or foul smelling drainage from the wound, call our office and speak to Dr. Parra, or the doctor avionics integration engineer. Do not use any ointments, harsh cleansers, powders or creams on your incision. Concerns/emergencies: If you have any other concerns about your surgery or post operative care, please call the surgeon's office number and speak to the office nurse or the surgeon avionics integration engineer. If you become severely ill with significant chest pain, shortness of breath, significant bleeding, or other life threatening symptoms, please call 911 or go to the ER right away. Discharge orders & Medications Prescriptions: New oxycodone 5 mg tablet 5 mg PO Q6HR Qty: 20 RF: 0 Continued calcium carbonate [Calcium 500] 500 mg calcium (1,250 mg) tablet 500 mg PO BID RF: 0 amlodipine 2.5 mg tablet 2.5 mg PO DAILY RF: 0 lisinopril 20 mg Tablet 20 mg PO DAILY RF: 0 levothyroxine 88 mcg tablet 88 mcg PO DAILY RF: 0 aspirin 81 mg Tablet,Delayed Release (Dr/Ec) 81 mg PO DAILY RF: 0 valacyclovir [Valtrex] 500 mg tablet 500 mg PO BID PRN (Reason: Break out) RF: 0 estradiol [Estrace] 0.01 % (0.1 mg/gram) cream 1 applic vaginal 2XW RF: 0 multivitamin Tablet 1 tab PO DAILY RF: 0 No Action nystatin-triamcinolone 100,000-0.1 unit/g-% cream 1 applic topical BID Qty: 15 RF: 0 Follow up/Referrals: Cresencio Doss DO [Primary Care Provider] - Lesley Parra MD [Physician] - (Need follow up visit two weeks after surgery date) Diet/Activity/Treatments Diet: Diet as Tolerated Skin/Wound/Dressing Care Report to your healthcare provider any signs of infection, such as:: chills, fever, night sweats, increased pain, unusual drainage and unusual redness Visit Report/Discharge Packet Instructions: Low-Fiber/Low-Residue Diet, DI for Prescription Opioid Use, Oxycodone, DI for Colostomy or Ileostomy Reversal, [facility]: Wound Care Stand Alone Forms: Surgery Discharge Discharge Data Primary Care Provider: Cresencio Doss Quality VTE Deep Vein Thrombosis/Pulmonary Embolism Present on Admission: No MIPS - Admit Advanced Care Plan / Current Medications Measures: #47 ? Advanced Care Plan Clinician documentation instruction: document at admission. [] I confirmed that the patient's Advance Care Plan is present, code status is documented, or surrogate decision maker is listed in the patient?s medical record. [SATISFIES [facility] PERFORMANCE] If Yes, Stop Here [] The patient?s Advance Care plan is not present because: (select) [MIPS PERFOR ERIC EXCEPTION/EXCLUSION] [] I confirmed today that the patient does not wish or was not able to name a surrogate decision maker or provide an Advance Care Plan. [] Hospice care is currently being provided or has been provided this calendar year [] I did NOT confirm today the presence of an Advance Care Plan or surrogate decision maker documented within the patient's medical record. [DOES NOT SATISFY MIPS PERFORMANCE] #130 - Documentation of Current Medications in the Medical Record Clinician documentation instruction: use macro the first time you see a patient. [] I have utilized all available immediate resources to obtain, update, or review the patient?s current medications. [SATISFIES MIPS PERFORMANCE] If Yes, Stop Here [] The patient is not eligible for medication reconciliation; the patient is in an emergent medical situation where delaying treatment would jeopardize the patient?s health. [MIPS PERFORMANCE EXCEPTION/EXCLUSION] [] I did NOT confirm, update or review the patient's current list of medications today. [DOES NOT SATISFY MIPS PERFORMANCE] MIPS - CL Central Venous Catheter Placement Measure: #76 ? Prevention of Central Venous Catheter (CVC) ? Related Bloodstream Infection Clinician documentation instruction: use macro every time you place a central line. [] All elements of Maximal Sterile Barrier Technique, including hand hygiene, skin prep, and sterile ultrasound technique (if used) were followed. [SATISFIES MIPS PERFORMANCE] If Yes, Stop Here [] If ?No?, the medical reason all elements were NOT used for medical reason [] (ex. emergent condition). [] Maximal Sterile Barrier Technique was not followed, no reason provided [DOES NOT SATISFY MIPS PERFORMANCE] MIPS - DC Heart Failure Measures: #5 - Heart Failure (HF): Angiotensin-Converting Enzyme (JOCELYNE) Inhibitor or Angiotensin Receptor Jordyn (ARB) Therapy for Left Ventricular Systolic Dysfunction (LVSD) and #8 - Heart Failure (HF): Beta-Jordyn Therapy for Left Ventricular Systolic Dysfunction (LVSD) Clinician documentation instruction: use macro at every CHF discharge. [] The patient has current or prior documentation of left ventricular ejection fraction (LVEF) less than 40%, or moderate or severely depressed left ventricular systolic function. Answer both: [SATISFIES MIPS PERFORMANCE] [] The patient was prescribed or already taking an Angiotensin-Converting Enzyme (JOCELYNE) Inhibitor, or Angiotensin Receptor Jordyn (ARB). [] The patient was prescribed or already taking a beta-jordyn. If Yes to Both, Stop Here [] Patient not prescribed/taking: [MIPS PERFORMANCE EXCEPTION/EXCLUSION] [] JOCELYNE or ARB for medical/patient/system reason(s) including [] (ex. allergy, intolerance, contraindication) [] Beta-jordyn for medical/patient/system reason(s) including [] (ex. a llergy, intolerance, contraindication) [] Patient not prescribed/taking: [DOES NOT SATISFY MIPS PERFORMANCE] [] JOCELYNE or ARB, no reason given [] Beta-jordyn, no reason given
== END 2021-01-14 13:45 | disposition home or self-care (01) | DRG 331 ==
PROVIDERS: Admitting Provider Surgery; PCP Family Medicine; Referring Provider Surgery; Visit Provider Surgery
PROC: 0DBB0ZZ Excision of Ileum, Open Approach (ICD-10-PCS; CPT 44620; principal; 2021-01-12 09:45)
DX: Z43.2 Encounter for attention to ileostomy (principal); K66.0 Peritoneal adhesions (postprocedural) (postinfection); Z20.822 Contact with and (suspected) exposure to COVID-19; I10 Essential (primary) hypertension; E03.9 Hypothyroidism, unspecified
CPT/HCPCS: 36415; 44626; 80048; 83735; 84100; 85025; 87635; C9803; J0690; J1644; J2060; J3010; J3475

== ENCOUNTER → 2021-09-08 09:04 | Outpatient (CLI) | payer MEDICARE, OTHER, SELFPAY ==
[2021-01-12 12:55] VITALS: BMI 25.6
[2021-09-08 10:11] LABS: COVID19 -Nasal RAPID Negative (Negative)
== END ==
PROVIDERS: PCP Family Medicine; Referring Provider Surgery; Visit Provider Surgery
DX: Z01.812 Encounter for preprocedural laboratory examination (principal); Z20.822 Contact with and (suspected) exposure to COVID-19
CPT/HCPCS: 87635; C9803

== ENCOUNTER 2021-09-09 06:31 | Day surgery (SDC) | payer MEDICARE, OTHER, SELFPAY ==
[2021-01-12 12:55] VITALS: BMI 25.6
[2021-09-04 11:28] VITALS: BMI 25.6
[2021-09-09] VITALS (9 sets, daily range): BP systolic 82–139; BP diastolic 38–74; PULSE 58–77; RESP 12–18; TEMP 36.3–36.8; O2SAT 85–99; BMI 25.6
[2021-09-09] MEDS: LACTATED RINGERS 1,000 ML 100 ML IV (07:26)
--- NOTE | 2021-09-09 07:34 | PM.PREOP ---
Pre-operative Note Interval Note History & Physical reviewed/Exam performed by Physician: Yes Changes to H&P: No
--- NOTE | 2021-09-09 07:37 | SUR.OPER ---
Supine on padded OR bed, head on pillow, arms secured on padded arm boards at <90 degrees abduction, legs uncrossed, safety belt at thigh, tape over blanket over lower legs.
[2021-09-09] MEDS: CEFAZOLIN 1 GM VIAL 2 GM IV (08:01)
[2021-09-09] MEDS: BUPIVACAINE 0.25% (PF) VIAL 30 ML INJ (09:09)
--- NOTE | 2021-09-09 10:44 | SUR.PHASEI ---
1024 hrs: Pt recieved in PACU, breathing unassisted. Report recieved from TECHNICAL SALES MANAGER and Dr Noguera. All questions answered.
--- NOTE | 2021-09-09 10:54 | SUR.PHASEI ---
Pt states she wants to go home. I spoke with Dr Castle re: pt discharge to home. He states it is ok for pt to go home as long as she is able to tolerate PO, pain is controlled, ambulate, and is able to void.
[2021-09-09] MEDS: OXYCODONE IR 5 MG TABLET PO (11:22)
[2021-09-09] MEDS: ACETAMINOPHEN 325 MG TABLET 650 MG PO (11:24)
--- NOTE | 2021-09-09 11:28 | SUR.PHASEII ---
Pt c/o 02/07 pain, medicated with po meds- see EMAR, instructed on emptying OLAMIDE. Pt with good knowledge of this due to previous hx of having one.
--- NOTE | 2021-09-09 12:39 | P.OP_ITS ---
Operative Date/Time/Diagnoses Date of procedure: 09/09/21 Time of procedure: 12:39 Pre-op diagnosis: Incisional hernia Post-op diagnosis: same Procedure & Clinicians Procedure: Lysis of adhesions. Incisional ventral hernia repair Same procedure as scheduled: Yes Indications: 70-year-old woman history sigmoid colectomy and diverting loop ileostomy for diverticulitis developed an incisional hernia where her reversed ileostomy was previously. Surgeon: Harshad Castle Click Yes if Unassisted: Yes Operative Notes Findings: small bowel incarcerated within the incisional hernia Specimen(s): none sent Estimated Blood Loss (mL): 20 Procedure in detail: patient was brought to the operating room placed supine on the table. Bilateral lower extremity compression devices were applied. She received antibiotic prior to skin incision. General anesthesia was induced she was intubated with an endotracheal tube. She was prepped and draped sterile fashion. Time-out performed. A midline incision was made of the fascia was grasped elevated and sharply incised the abdomen was entered atraumatically. There were extensive intra-abdominal adhesions in particular in the right lower quadrant where her previous ileostomy had been. These adhesions were carefully divided with sharp dissection. There was a loop of small bowel that was incarcerated within the hernia defect this bowel was viable. A complete abdominal adhesional lysis was performed. The defect within the right abdominal wall extended through the posterior sheath the rectus and into the anterior sheath. The hernia sac was excised. The posterior sheath was extremely attenuated was densely adherent to the posterior rectus and for this reason I selected a Bard Ventralex mesh with an anti-adhesive barrier to place in a retro rectus fashion covering the defect the posterior sheath was secured to the mesh as best as possible. The defect measured approximately 4 cm in maximal diameter. The Ventralex Patch was secured to the rectus with trans fascial sutures using Interrupted Ethibond. the abdomen was irrigated hemostasis was achieved. The midline fascia was closed with running 1. PDS suture. The anterior she at the linea alba was reinforced with interrupted Ethibond suture. I placed a sheet of soft Bard mesh over the defect in the anterior right rectus sheath and this was secured in place with interrupted Ethibond suture. A 10 [place] flat drain was placed anterior to the anterior sheath and was brought out through the skin. The subcutaneous tissue was reapproximated with Vicryl skin closed with a running Monocryl followed by the application of Dermabond and Steri-Strips. Patient tolerated procedure well she was transported to the recovery room in stable condition. Complications: none Post-operative Condition: stable Disposition: same day surgery
--- NOTE | 2021-09-09 14:21 | SUR.PHASEII ---
Late entry: Dr. Castle out to see pt at bedside, stated OK for pt to go, pt wanting to go, pain controlled, VSS and voided in BR. Assisted pt to dress, steri strips intact, dressing to drain site c/d/i, abdominal binder in place. Pt steady when up. Left unit in stable condition.
== END 2021-09-09 13:15 | disposition home or self-care (01) ==
PROVIDERS: PCP Family Medicine; Referring Provider Surgery; Visit Provider Surgery
PROC: (CPT 49561; principal; 2021-09-09 07:45)
DX: K43.0 Incisional hernia with obstruction, without gangrene (principal); Z87.19 Personal history of other diseases of the digestive system; E03.9 Hypothyroidism, unspecified; I10 Essential (primary) hypertension; K66.0 Peritoneal adhesions (postprocedural) (postinfection)
CPT/HCPCS: 49561; 49568; 82962; C1781; J0690; J1100; J1885; J2405; J3010

== ENCOUNTER → 2022-04-14 08:42 | Outpatient (CLI) | payer MEDICARE, OTHER, SELFPAY ==
[2022-01-16 13:25] VITALS: BMI 25.6
[2022-04-14 09:10] LABS: Hematocrit 38.6 % (36-46); Hemoglobin 13.1 g/dL (12.0-16.0); Mean Corpuscular Hemoglobin 30.9 PG (26-34); Mean Corpuscular Volume 90.9 fL (80-100); Platelet Count 233 X10^3/uL (150-400); Red Blood Cell Count 4.24 X10^6/uL (4.0-5.2); White Blood Cell Count 5.3 X10^3/uL (4.5-11.0)
[2022-04-14 09:44] LABS: Alanine Aminotransferase 20 IU/L (<35); Albumin 4.1 g/dL (3.5-5.0); Albumin Globulin Ratio 1.6 (1.0-2.8); Alkaline Phosphatase 72 U/L (38-126); Aspartate Aminotransferase 25 IU/L (14-36); BUN Creatinine Ratio 23.8 (6-22); Bilirubin Total 0.5 mg/dL (0.2-1.3); Blood Urea Nitrogen 25 mg/dL (7-17); Calcium 9.8 mg/dL (8.4-10.2); Carbon Dioxide 30 mmol/L (22-32); Chloride 106 mmol/L (98-107); Cholesterol 201 mg/dL (140-199); Estimated Glomerular Filt Rate 56 mL/min (>60); Globulin 2.6 g/dL (1.7-4.1); Glucose 99 mg/dL (80-110); HDL Cholesterol 68 mg/dL (40-60); HEMOLYSIS < 15 (0-50); LDL Cholesterol Calculated 105 mg/dL (<100); Potassium 4.6 mmol/L (3.4-5.1); Sodium 138 mmol/L (137-145); Total Protein 6.7 g/dL (6.3-8.2); Triglycerides 141 mg/dL (35-150)
[2022-04-14 09:45] LABS: Hemoglobin A1C% w Est Avg Glu 5.3 % (4.0-6.0)
[2022-04-14 10:09] LABS: TSH w/ Reflex to FT4 1.69 uIU/mL (0.47-4.68)
== END ==
PROVIDERS: PCP Internal Medicine; Referring Provider Internal Medicine; Visit Provider Internal Medicine
DX: I10 Essential (primary) hypertension (principal); E03.9 Hypothyroidism, unspecified
CPT/HCPCS: 36415; 80053; 80061; 83036; 84443; 85027

== ENCOUNTER 2023-02-26 09:28 | Emergency (ER) | payer MEDICARE, OTHER, SELFPAY ==
[2022-01-16 13:25] VITALS: BMI 25.6
[2023-02-26] VITALS (21 sets, daily range): BP systolic 101–179; BP diastolic 50–85; PULSE 71–97; RESP 16–22; TEMP 36.3; O2SAT 94–100; BMI 25.6
--- NOTE | 2023-02-26 09:35 | DI.CT.S_ITS ---
PROCEDURE: CT ABDOMEN PELVIS W CON INDICATIONS: hx of colon perf and ileostomy with reversal now with LLQ pa TECHNIQUE: After the administration of IV contrast, axial sections were acquired from the lung bases to the pubic symphysis. Coronal and sagittal reformats were performed. For radiation dose reduction, the following was used: automated exposure control, adjustment of mA and/or kV according to patient size. COMPARISON: [facility], CT, CT ABDOMEN PELVIS W CON, 05/20/2020, 8:40. FINDINGS: Image quality: Excellent. Lung bases: Unremarkable. Heart: No significant findings. ABDOMEN: Liver: Mild steatosis is present. Gallbladder: Unremarkable. Biliary ducts: Unremarkable. Pancreas: Unremarkable. Spleen: Unremarkable. Adrenal Glands: Unremarkable. Kidneys and Ureters: There is moderate left hydronephrosis and hydroureter. 9 mm calcification Hounsfield units 522 is present at the left ureterovesicular junction. Left perinephric stranding is present. Stomach and Bowel: Stomach, small bowel loops, and colon are unremarkable. Peritoneum: No abnormal intraperitoneal fluid. No free air. Ventral Wall: No hernia. Abdominal Nodes: No retroperitoneal or mesenteric adenopathy by size criteria. Vessels: Aorta and inferior vena cava are normal in size. PELVIS: Pelvic Organs: Unremarkable. Bladder: Unremarkable. Pelvic Nodes: No enlarged lymph nodes. Miscellaneous: No inguinal hernias are seen. Bones: Unremarkable. IMPRESSION: Moderate left hydronephrosis and hydroureter with perinephric stranding. Distal ureteral calculus is present at the ureterovesicular junction. Dictated by: Claribel Ewing M.D. on 02/26/2023 at 12:02 Approved by: Claribel wEing M.D. on 02/26/2023 at 12:05
--- NOTE | 2023-02-26 09:36 | ED.GENADULT ---
HPI - General Adult General Chief complaint: Abdominal Pain Stated complaint: Lt Lower Abd Pain, Hx Colon Rupture Time Seen by Provider: 02/26/23 09:31 Source: patient Mode of arrival: Ambulatory Limitations: no limitations History of Present Illness HPI narrative: Patient is a 72-year-old female. She states that many years ago she had a colon perforation which resulted in a surgery and an ileostomy. She is since the ileostomy reversed. She states that earlier in the week she did have some diarrhea which is now resolved. She woke up this morning with left lower quadrant abdominal pain. Also having nausea and vomiting. She did have a bowel movement this morning which was unremarkable. It did not change her abdominal pain. Vomiting is not change her abdominal pain. No urinary symptoms. Has not tried anything for the symptoms prior to arrival. Related Data Home Medications Medication Instructions Recorded Confirmed calcium carbonate 500 mg calcium 500 mg PO BID 08/29/20 04/08/22 (1,250 mg) tablet (Calcium 500) multivitamin 1 tab PO DAILY 01/07/21 04/08/22 ivermectin 6 mg tablet 12 mg PO 2XW 04/08/22 04/08/22 Previous Rx's Medication Instructions Recorded amlodipine 2.5 mg tablet 2.5 mg PO DAILY #90 tabs 04/08/22 levothyroxine 88 mcg tablet 88 mcg PO DAILY #90 tabs 04/08/22 lisinopril 20 mg tablet 20 mg PO DAILY #90 tabs 04/08/22 terbinafine HCl 250 mg tablet 250 mg PO DAILY #10 tabs 04/08/22 nystatin 100,000 unit/mL oral 500,000 unit (5 mL) buccal QID 04/12/22 suspension oral thrush #473 mL valacyclovir 500 mg tablet 500 mg PO BID PRN Break out #30 07/01/22 (Valtrex) tabs hydrocodone 5 mg-acetaminophen 325 1 tab PO Q4-6H PRN pain #10 tabs 02/26/23 mg tablet ondansetron 4 mg disintegrating 4 mg PO Q6H PRN nausea and 02/26/23 tablet vomiting #14 tabs sulfamethoxazole 800 1 tab PO BID 14 days #28 tabs 02/26/23 mg-trimethoprim 160 mg tablet (Bactrim DS) tamsulosin 0.4 mg capsule (Flomax) 0.4 mg PO DAILY #14 caps 02/26/23 Allergies Allergy/AdvReac Type Severity Reaction Status Date / Time diphenhydramine AdvReac Intermediate 'Almost Verified 02/26/23 09:45 [From Benadryl] Hallucinating Review of Systems Constitutional Constitutional: Reports system reviewed and no additional complaints, except as documented Cardiovascular Cardiovascular: Reports system reviewed and no additional complaints, except as documented Respiratory Respiratory: Reports system reviewed and no additional complaints, except as documented Gastrointestinal Gastrointestinal: Reports system reviewed and no additional complaints, except as documented Genitourinary Genitourinary: Reports system reviewed and no additional complaints, except as documented Integumentary/Breasts Skin/Breast: Reports system reviewed and no additional complaints, except as documented Neurologic Neurologic: Reports system reviewed and no additional complaints, except as documented Hematologic/Lymphatic On Anticoagulants: No Patient History Medical History Acquired hypothyroidism Chicken pox (~1954) Colon polyps (~1998) Diverticulitis Diverticulitis of intestine with perforation and abscess (~2019) Essential hypertension History of herpes simplex infection (~1999) Measles (~1957) Mixed hyperlipidemia Mumps (~1954) Neck discomfort No active medical problems Oral thrush Osteopenia (~1999) Pelvic relaxation Surgical History (Updated 04/08/22 @ 13:29 by Justo Marcus MD) Anesthesia H/O ileostomy H/O: hysterectomy (~1991) History of colon surgery (~05/20/20) History of surgery History of surgery (01/12/21) Hx of ectopic (~1978) Status post right partial knee replacement Family History Father Cancer Hypertension Mother Hypertension Osteoporosis COPD (chronic obstructive pulmonary disease) Brother Diabetes mellitus Sister Hypertension Osteopenia Grandmother Hypertension Social History household members: spouse Smoking Status: Never smoker alcohol intake: current Smoking Status: Never smoker alcohol intake frequency: a few times a week Substance Use Type: does not use Exam Initial Vital Signs Initial Vital Signs: Vital Signs Pulse Rate 86 02/26/23 09:33 Respiratory Rate 20 02/26/23 09:33 Pulse Oximetry 99 02/26/23 09:33 Const General: cooperative, comfortable and No ill appearing HENMT Head: normal to inspection Resp Effort & Inspection: normal respiratory effort Cardio Rate: regular rate GI Inspection: normal to inspection and non-distended Palpation: soft, No firm, No guarding and tender (Left-sided abdominal pain) Back/Spine/Pelvis Back: No CVA tenderness Neuro General: patient alert, patient awake and moves all extremities Extrem General: capillary refill normal Course Orders Ordered: ED Orders 02/26/23 09:35 CT abdomen pelvis w con Stat 02/26/23 09:40 Complete Blood Count AUTO DIFF Stat Comprehensive Metabolic Panel Stat Lipase Stat 02/26/23 09:47 Urine Culture Stat Urine Microscopic Stat Discontinued Medications Sodium Chloride (Normal Saline 0.9%) 1,000 mls @ 1,000 mls/hr IV BOLUS ONE Stop: 02/26/23 10:35 Last Infusion: 02/26/23 11:45 Dose: 0 mls/hr Documented By: Admin: 02/26/23 10:30 Dose: 1,000 mls/hr Documented By: GENOVEVA Ceftriaxone Sodium 1,000 mg/ (Sodium Chloride) 100 mls @ 200 mls/hr IV NOW ONE Stop: 02/26/23 12:23 Last Infusion: 02/26/23 13:33 Dose: 0 mls/hr Documented By: Admin: 02/26/23 12:48 Dose: 200 mls/hr Documented By: SHEKHAR Ketorolac Tromethamine (Ketorolac 30 Mg/Ml Vial) 30 mg IV NOW ONE Stop: 02/26/23 10:27 Last Admin: 02/26/23 10:31 Dose: 30 mg Documented By: GENOVEVA Tamsulosin HCl (Tamsulosin 0.4 Mg Capsule) 0.4 mg PO NOW ONE Stop: 02/26/23 12:36 Last Admin: 02/26/23 12:48 Dose: 0.4 mg Documented By: SHEKHAR Vital Signs Vital signs: Vital Signs - 8 hr 02/26/23 09:38 02/26/23 09:33 02/26/23 09:34 Temperature 97.4 F L Pulse Rate 88 86 Respiratory Rate 19 20 Blood Pressure 179/85 H 179/85 H Pulse Oximetry 97 99 Oxygen Delivery Method Room Air 02/26/23 09:34 02/26/23 10:33 02/26/23 10:34 Temperature Pulse Rate 85 72 Respiratory Rate Blood Pressure 170/77 H Pulse Oximetry 97 Oxygen Delivery Method 02/26/23 10:34 02/26/23 11:02 02/26/23 11:12 Temperature Pulse Rate 71 78 Respiratory Rate 22 18 Blood Pressure 149/66 H Pulse Oximetry 100 99 Oxygen Delivery Method Room Air Room Air 02/26/23 11:12 02/26/23 11:30 02/26/23 11:30 Temperature Pulse Rate 78 72 Respiratory Rate Blood Pressure 131/61 Pulse Oximetry 98 98 Oxygen Delivery Method 02/26/23 12:00 02/26/23 12:00 02/26/23 12:30 Temperature Pulse Rate 71 Respiratory Rate 22 Blood Pressure 122/58 L 139/68 Pulse Oximetry 97 Oxygen Delivery Method Room Air 02/26/23 12:30 02/26/23 12:56 02/26/23 12:56 Temperature Pulse Rate 80 75 Respiratory Rate Blood Pressure 148/68 H Pulse Oximetry 99 99 Oxygen Delivery Method 02/26/23 13:00 02/26/23 13:01 02/26/23 13:01 Temperature Pulse Rate 78 80 Respiratory Rate 20 Blood Pressure 154/68 H Pulse Oximetry 100 100 Oxygen Delivery Method 02/26/23 13:30 02/26/23 13:31 02/26/23 13:31 Temperature Pulse Rate 82 81 Respiratory Rate Blood Pressure 101/50 L Pulse Oximetry 99 98 Oxygen Delivery Method 02/26/23 13:32 02/26/23 13:32 02/26/23 14:00 Temperature Pulse Rate 80 Respiratory Rate 20 Blood Pressure 130/63 134/62 Pulse Oximetry 99 Oxygen Delivery Method Room Air 02/26/23 14:00 02/26/23 14:30 02/26/23 14:30 Temperature Pulse Rate 79 82 Respiratory Rate 16 Blood Pressure 133/62 Pulse Oximetry 97 94 Oxygen Delivery Method 02/26/23 15:42 02/26/23 15:42 02/26/23 16:00 Temperature Pulse Rate 84 Respiratory Rate Blood Pressure 129/62 116/56 L Pulse Oximetry 96 Oxygen Delivery Method 02/26/23 16:00 Temperature Pulse Rate 80 Respiratory Rate Blood Pressure Pulse Oximetry 94 Oxygen Delivery Method Medical Decision Making Lab Data Lab results reviewed: Yes I reviewed the patient's lab results. 02/26/23 09:40 02/26/23 09:40 Labs: Lab Results 02/26/23 02/26/23 02/26/23 Range/Units 09:40 09:40 09:47 WBC 12.0 H (4.5-11.0) X10^3/uL RBC 4.40 (4.0-5.2) X10^6/uL Hgb 13.4 (12.0-16.0) g/dL Hct 40.1 (36-46) % MCV 91.0 (80-100) fL MCH 30.4 (26-34) PG MCHC 33.4 (30-36) % RDW 13.1 (11.6-14.8) % Plt Count 224 (150-400) X10^3/uL Neut % (Auto) 89.2 H (50-75) % Lymph % (Auto) 6.3 L (25-40) % [place] % (Auto) 4.0 (3-14) % Eos % (Auto) 0.2 L (2-4) % Baso % (Auto) 0.3 (0-2) % Neut # (Auto) 38529 H (7066-2727) /uL Lymph # (Auto) 700 L (7176-3234) /uL [place] # (Auto) 500 (0-900) /uL Eos # (Auto) 0 (0-450) /uL Baso # (Auto) 0 (0-100) /uL Sodium 139 (137-145) mmol/L Potassium 4.4 (3.4-5.1) mmol/L Chloride 109 H (98-107) mmol/L Carbon Dioxide 19 L (22-32) mmol/L BUN 26 H (7-17) mg/dL Creatinine 1.30 H (0.52-1.04) mg/dL Estimated GFR 43 L (>60) mL/min BUN/Creatinine Ratio 20.0 (6-22) Glucose 145 H (80-110) mg/dL Calcium 9.6 (8.4-10.2) mg/dL Total Bilirubin 0.6 (0.2-1.3) mg/dL AST 38 H (14-36) IU/L ALT 41 H (<35) IU/L Alkaline Phosphatase 84 (38-126) U/L Total Protein 7.2 (6.3-8.2) g/dL Albumin 4.3 (3.5-5.0) g/dL Globulin 2.9 (1.7-4.1) g/dL Albumin/Globulin Ratio 1.5 (1.0-2.8) Lipase 64 (23-300) U/L Urine RBC None seen (0-5/HPF) Urine WBC 5-10/hpf H (0-5/HPF) Amorphous Sediment 1+ Urine Bacteria Many (>30) H (None) Ur Culture Indicated? Specimen cultured Urine Dip Bedside Urine Glucose Negative Bedside Urine Bilirubin - Negative Bedside Urine Ketone - Negative Urine Specific [place] 1.030 Bedside Urine Occult Blood ++ Bedside Urine pH 5.5 Bedside Urine Protein - Negative Bedside Urine Urobilinogen - Negative Bedside Urine Nitrite - Negative Bedside Urine Leukocytes + 70 Esterase Point of care testing: Urine Dip Bedside Urine Glucose Negative Bedside Urine Bilirubin - Negative Bedside Urine Ketone - Negative Urine Specific [place] 1.030 Bedside Urine Occult Blood ++ Bedside Urine pH 5.5 Bedside Urine Protein - Negative Bedside Urine Urobilinogen - Negative Bedside Urine Nitrite - Negative Bedside Urine Leukocytes + [address] scan - abdomen/pelvis: Radiologist's Impression: PROCEDURE:? CT ABDOMEN PELVIS W CON ? INDICATIONS:? hx of colon perf and ileostomy with reversal now with LLQ pa ? TECHNIQUE:? After the administration of IV contrast, axial sections were acquired from the lung bases to the pubic symphysis.? Coronal and sagittal reformats were performed.? For radiation dose reduction, the following was used:? automated exposure control, adjustment of mA and/or kV according to patient size. ? COMPARISON:? [facility], CT, CT ABDOMEN PELVIS W CON, 05/20/2020, 8:40. ? FINDINGS:? Image quality:? Excellent.? ? Lung bases:? Unremarkable.? ? Heart:? No significant findings. ? ? ABDOMEN: Liver:? Mild steatosis is present. Gallbladder:? Unremarkable.? ? Biliary ducts:? Unremarkable.? ? Pancreas:? Unremarkable.? ? Spleen:? Unremarkable.? ? Adrenal Glands:? Unremarkable.? ? Kidneys and Ureters:? There is moderate left hydronephrosis and hydroureter.? 9 mm calcification Hounsfield units 522 is present at the left ureterovesicular junction.? Left perinephric stranding is present. ? Stomach and Bowel:? Stomach, small bowel loops, and colon are unremarkable.? Peritoneum:? No abnormal intraperitoneal fluid.? No free air.? ? Ventral Wall: ? No hernia.? Abdominal Nodes:? No retroperitoneal or mesenteric adenopathy by size criteria.? Vessels:? Aorta and inferior vena cava are normal in size.? ? PELVIS: Pelvic Organs:? Unremarkable.? ? Bladder:? Unremarkable.? ? Pelvic Nodes: No enlarged lymph nodes.? Miscellaneous: No inguinal hernias are seen. ? ? ? Bones:? Unremarkable.? IMPRESSION:? ? Moderate left hydronephrosis and hydroureter with perinephric stranding.? Distal ureteral calculus is present at the ureterovesicular junction. MDM Narrative Medical decision making narrative: Patient arrived with left-sided abdominal pain. A CT scan shows no acute: Pathology. The patient was happy to hear about this she was concerned that she potentially had another obstruction/perforation. Despite this there was a 9 mm left-sided distal ureteral stone. She also has a kidney function today that is slightly worse than her baseline however admittedly her last kidney function was more than 1 year ago. She also has leukocytosis. Urinalysis has bacteria and white blood cells. She also has mild hydro on the left most likely secondary to the stone. After medications and fluids here in the ER the patient states she does feel much better. She is afebrile. Is tolerating oral intake. Was observed here in the emergency department for several hours without any return of the discomfort. I did discuss the case with Dr. Mendoza with urology at the [facility] who stated that in the setting of her not being able to physically evaluate the patient my description is such that she would unlikely emergently take the patient to the operating room for any stenting. She stated that ideally the patient would be evaluated by Urology over the next 24-48 hours however there was not an apparent indication for an emergent transfer. We do not have Urology available here at this facility currently. I discussed all this with the patient. We discussed options to include continuing to find a place with Urology for transfer verses keeping here in the emergency department for a period of observation versus discharge home with strict return precautions. After this discussion the patient opted to be discharged home. We will treat her with Flomax, antibiotics and pain and nausea medication. These were sent to the pharmacy of her choice. She was given very strict return precautions for worsening of her symptoms. She stated that would be easy for her to return to an emergency department if indicated. Both her and her and myself are in agreement with this plan. Discharge Plan Departure Patient Disposition: Home Clinical Impression: Left ureteral calculus, Acute UTI Instructions: DI for Kidney Stones, DI for Urinary Tract Infection (UTI) Activity Restrictions/Additional Instructions: I recommend that you continue to take all of your medications as directed. I also recommend that on Tuesday you contact the urologist at the number provided below for a follow-up. Your medications were sent to [facility] per your request. Please start taking them as directed. I also recommend that you return to the emergency department for worsening symptoms to include pain or nausea that is not controlled with the medications or generally feeling worse like we discussed. Prescriptions: New tamsulosin [Flomax] 0.4 mg capsule 0.4 mg PO DAILY Qty: 14 0RF ondansetron 4 mg tablet,disintegrating 4 mg PO Q6H PRN (Reason: nausea and vomiting) Qty: 14 0RF hydrocodone-acetaminophen 5-325 mg tablet 1 tab PO Q4-6H PRN (Reason: pain) Qty: 10 0RF sulfamethoxazole-trimethoprim [Bactrim DS] 800-160 mg tablet 1 tab PO BID 14 Days Qty: 28 0RF No Action calcium carbonate [Calcium 500] 500 mg calcium (1,250 mg) tablet 500 mg PO BID nystatin 100,000 unit/mL suspension 500,000 unit BUCCAL QID Qty: 473 1RF valacyclovir [Valtrex] 500 mg tablet 500 mg PO BID PRN (Reason: Break out) Qty: 30 11RF amlodipine 2.5 mg tablet 2.5 mg PO DAILY Qty: 90 3RF lisinopril 20 mg tablet 20 mg PO DAILY Qty: 90 3RF levothyroxine 88 mcg tablet 88 mcg PO DAILY Qty: 90 3RF terbinafine HCl 250 mg tablet 250 mg PO DAILY Qty: 10 1RF ivermectin 6 mg tablet 12 mg PO 2XW multivitamin Tablet 1 tab PO DAILY Referrals: Devorah Romero MD [Physician] - Justo Marcus MD [Primary Care Provider] - Stand Alone Forms: Patient Portal/API
[2023-02-26 09:45] LABS: Add Manual Diff / Slide Review NO; Basophils Absolute Auto 0 /uL (0-100); Basophils Percent Auto 0.3 % (0-2); Eosinophils Absolute Auto 0 /uL (0-450); Eosinophils Percent Auto 0.2 % (2-4); Hematocrit 40.1 % (36-46); Hemoglobin 13.4 g/dL (12.0-16.0); Lymphocytes Absolute Auto 700 /uL (1100-4500); Lymphocytes Percent Auto 6.3 % (25-40); Mean Corpuscular HGB Conc 33.4 % (30-36); Mean Corpuscular Hemoglobin 30.4 PG (26-34); Monocytes Absolute Auto 500 /uL (0-900); Neutrophils Absolute Auto 10700 /uL (1500-7000); Neutrophils Percent Auto 89.2 % (50-75); Platelet Count 224 X10^3/uL (150-400); Red Cell Distribution Width 13.1 % (11.6-14.8)
[2023-02-26 10:12] LABS: Alanine Aminotransferase 41 IU/L (<35); Albumin 4.3 g/dL (3.5-5.0); Albumin Globulin Ratio 1.5 (1.0-2.8); Alkaline Phosphatase 84 U/L (38-126); Aspartate Aminotransferase 38 IU/L (14-36); Bilirubin Total 0.6 mg/dL (0.2-1.3); Blood Urea Nitrogen 26 mg/dL (7-17); Calcium 9.6 mg/dL (8.4-10.2); Carbon Dioxide 19 mmol/L (22-32); Chloride 109 mmol/L (98-107); Estimated Glomerular Filt Rate 43 mL/min (>60); Globulin 2.9 g/dL (1.7-4.1); Glucose 145 mg/dL (80-110); HEMOLYSIS < 15 (0-50); Lipase 64 U/L (23-300); Potassium 4.4 mmol/L (3.4-5.1); Sodium 139 mmol/L (137-145); Total Protein 7.2 g/dL (6.3-8.2)
[2023-02-26 10:18] LABS: Amorphous Sediment Urine 1+; Bacteria Urine Many (>30); Culture Indicated Urine Specimen Cultured; RBC Urine None Seen (0-5/HPF); WBC Urine 5-10/HPF (0-5/HPF)
[2023-02-26] MEDS: SODIUM CHLORIDE 0.9% 1,000 ML 1000 ML IV (10:30)
[2023-02-26] MEDS: KETOROLAC 30 MG/ML VIAL IV (10:31)
[2023-02-26] MEDS: TAMSULOSIN 0.4 MG CAPSULE PO (12:48)
[2023-02-26] MEDS: cefTRIAXone 1,000 MG in SODIUM CHLORIDE 0.9% 100 ML 200 MG IV (12:48)
== END 2023-02-26 17:08 | disposition home or self-care (01) ==
PROVIDERS: Emergency Provider Emergency Medicine; PCP Internal Medicine
DX: N20.1 Calculus of ureter (principal); N39.0 Urinary tract infection, site not specified; Z79.899 Other long term (current) drug therapy
CPT/HCPCS: 36415; 74177; 80053; 81003; 81015; 83690; 85025; 87077; 87086; 87186; 96361; 96365; 96375; 99284; J0696; J1885; Q9967

== ENCOUNTER → 2023-07-07 10:39 | Outpatient (CLI) | payer MEDICARE, OTHER, SELFPAY ==
[2022-01-16 13:25] VITALS: BMI 25.6
[2023-07-07 11:21] LABS: Alanine Aminotransferase 20 IU/L (<35); Albumin 4.1 g/dL (3.5-5.0); Albumin Globulin Ratio 1.3 (1.0-2.8); Alkaline Phosphatase 66 U/L (38-126); Aspartate Aminotransferase 27 IU/L (14-36); BUN Creatinine Ratio 19.8 (6-22); Bilirubin Total 0.5 mg/dL (0.2-1.3); Blood Urea Nitrogen 21 mg/dL (7-17); Calcium 9.1 mg/dL (8.4-10.2); Carbon Dioxide 28 mmol/L (22-32); Chloride 104 mmol/L (98-107); Cholesterol 232 mg/dL (140-199); Estimated Glomerular Filt Rate 55 mL/min (>60); Globulin 3.1 g/dL (1.7-4.1); Glucose 106 mg/dL (80-110); HDL Cholesterol 56 mg/dL (40-60); HEMOLYSIS < 15 (0-50); LDL Cholesterol Calculated 152 mg/dL (<100); Potassium 4.9 mmol/L (3.4-5.1); Sodium 136 mmol/L (137-145); Total Protein 7.2 g/dL (6.3-8.2); Triglycerides 118 mg/dL (35-150)
[2023-07-07 12:08] LABS: TSH w/ Reflex to FT4 0.12 uIU/mL (0.47-4.68)
[2023-07-07 13:07] LABS: Free T4, Direct Thyroxine 1.71 ng/dL (0.78-2.19)
== END ==
PROVIDERS: PCP Internal Medicine; Referring Provider Internal Medicine; Visit Provider Internal Medicine
DX: E78.2 Mixed hyperlipidemia (principal); I10 Essential (primary) hypertension
CPT/HCPCS: 36415; 80053; 80061; 84439; 84443

== ENCOUNTER → 2023-11-18 12:33 | Outpatient (CLI) | payer MEDICARE, OTHER, SELFPAY ==
[2022-01-16 13:25] VITALS: BMI 25.6
[2023-11-18 14:09] LABS: TSH w/ Reflex to FT4 0.03 uIU/mL (0.47-4.68)
[2023-11-18 14:37] LABS: Free T4, Direct Thyroxine 1.37 ng/dL (0.78-2.19)
== END ==
PROVIDERS: PCP Internal Medicine; Referring Provider Internal Medicine; Visit Provider Internal Medicine
DX: E03.9 Hypothyroidism, unspecified (principal)
CPT/HCPCS: 36415; 84439; 84443

== ENCOUNTER → 2024-06-28 09:54 | Outpatient (CLI) | payer MEDICARE, OTHER, SELFPAY ==
[2022-01-16 13:25] VITALS: BMI 25.6
[2024-06-28 11:32] LABS: Aspartate Aminotransferase 32 IU/L (14-36); BUN Creatinine Ratio 18.3 (6-22); Blood Urea Nitrogen 19 mg/dL (7-17); Calcium 10.2 mg/dL (8.4-10.2); Carbon Dioxide 24 mmol/L (22-32); Chloride 105 mmol/L (98-107); Cholesterol 225 mg/dL (140-199); Estimated Glomerular Filt Rate 56 mL/min (>60); Glucose 94 mg/dL (80-110); HDL Cholesterol 67 mg/dL (40-60); HEMOLYSIS < 15 (0-50); LDL Cholesterol Calculated 141 mg/dL (<100); Potassium 4.5 mmol/L (3.4-5.1); Sodium 139 mmol/L (137-145); Triglycerides 83 mg/dL (35-150)
[2024-06-28 11:53] LABS: TSH w/ Reflex to FT4 3.83 uIU/mL (0.47-4.68)
== END ==
PROVIDERS: PCP Internal Medicine; Referring Provider Internal Medicine; Visit Provider Internal Medicine
DX: E03.9 Hypothyroidism, unspecified (principal); I10 Essential (primary) hypertension; E78.2 Mixed hyperlipidemia
CPT/HCPCS: 36415; 80048; 80061; 84443; 84450

== ENCOUNTER 2024-07-03 10:24 | Emergency (ER) | payer MEDICARE, OTHER, SELFPAY ==
[2022-01-16 13:25] VITALS: BMI 25.6
[2024-07-03] VITALS (8 sets, daily range): BP systolic 120–142; BP diastolic 58–63; PULSE 66–72; RESP 14; TEMP 36.6; O2SAT 97–98; BMI 25.2
[2024-07-03 10:44] LABS: Add Manual Diff / Slide Review NO; Basophils Absolute Auto 100 /uL (0-100); Basophils Percent Auto 0.6 % (0-2); Eosinophils Absolute Auto 100 /uL (0-450); Eosinophils Percent Auto 1.1 % (2-4); Hemoglobin 12.8 g/dL (12.0-16.0); Lymphocytes Absolute Auto 2000 /uL (1100-4500); Mean Corpuscular HGB Conc 33.8 % (30-36); Mean Corpuscular Hemoglobin 30.9 PG (26-34); Mean Corpuscular Volume 91.5 fL (80-100); Monocytes Absolute Auto 700 /uL (0-900); Monocytes Percent Auto 7.4 % (3-14); Neutrophils Absolute Auto 6400 /uL (1500-7000); Neutrophils Percent Auto 68.9 % (50-75); Platelet Count 254 X10^3/uL (150-400); Red Blood Cell Count 4.15 X10^6/uL (4.0-5.2); White Blood Cell Count 9.3 X10^3/uL (4.5-11.0)
[2024-07-03 11:08] LABS: Urine Volume 10mL (spun)
[2024-07-03 11:09] LABS: Bacteria Urine Moderate (10-30); Culture Indicated Urine Specimen Cultured; RBC Urine 1-5/HPF (0-5/HPF); Squamous Epithelial Cell Urine 0-1 /HPF (0-5/HPF); WBC Urine 5-10/HPF (0-5/HPF)
[2024-07-03 11:14] LABS: Alanine Aminotransferase 20 IU/L (<35); Albumin Globulin Ratio 1.2 (1.0-2.8); Alkaline Phosphatase 90 U/L (38-126); Aspartate Aminotransferase 28 IU/L (14-36); BUN Creatinine Ratio 20.5 (6-22); Bilirubin Total 0.8 mg/dL (0.2-1.3); Blood Urea Nitrogen 23 mg/dL (7-17); Calcium 9.4 mg/dL (8.4-10.2); Carbon Dioxide 22 mmol/L (22-32); Chloride 104 mmol/L (98-107); Estimated Glomerular Filt Rate 52 mL/min (>60); Globulin 3.4 g/dL (1.7-4.1); Glucose 113 mg/dL (80-110); HEMOLYSIS < 15 (0-50); Lipase 76 U/L (23-300); Potassium 3.9 mmol/L (3.4-5.1); Sodium 135 mmol/L (137-145); Total Protein 7.4 g/dL (6.3-8.2)
--- NOTE | 2024-07-03 11:19 | ED_ITS ---
HPI - Abdominal Pain <Emma Mckeon PA-C - Last Filed: 07/03/24 15:25> General Chief Complaint: Abdominal Pain Stated Complaint: abdomen pain Time Seen by Provider: 07/03/24 10:56 Source: patient Mode of arrival: Ambulatory History of Present Illness HPI narrative: 73-year-old female with past medical history complicated diverticulitis with perforation, status post partial colectomy, hyperlipidemia, hypertension, hypothyroidism, recurrent UTIs presents to the ED with 5 days of lower abdominal pain, diarrhea. Patient states that her symptoms started with nausea, diarrhea 5 days ago. Patient states that her diarrhea resolved after day 2, followed by blood-streaked mucus and gas but no other bowel movements. Patient complains of a feeling of dull heaviness and discomfort in the lower abdomen. Patient endorses that she had a fever yesterday. Patient also endorses intermittent lightheadedness or dizziness over the last week or so. Patient also noted that her home blood pressure readings were below her normal baseline. Patient notes the low blood pressures at around 105/57. No chills, chest pain, shortness of breath, vomiting, dysuria, urinary urgency, urinary frequency, syncope. Patient was seen by her PCP Dr. Marcus 6 days ago for a annual well checkup. Patient did discuss the blood pressure fluctuations and dizziness with Dr. Marcus. Dr. Marcus did advice the Luann maneuver. Related Data Home Medications Medication Instructions Recorded Confirmed calcium carbonate (Calcium 500) 500 mg PO BID 08/29/20 06/28/24 multivitamin 1 tab PO DAILY 01/07/21 06/28/24 ascorbate calcium (vitamin C) 500 500 mg PO DAILY 06/28/24 06/28/24 mg tablet aspirin 81 mg chewable tablet 81 mg PO DAILY 06/28/24 06/28/24 cholecalciferol (vitamin D3) 10 10 mcg PO DAILY 06/28/24 06/28/24 mcg (400 unit) capsule Previous Rx's Medication Instructions Recorded amlodipine 2.5 mg tablet 2.5 mg PO DAILY #90 tabs 06/28/24 estradiol 0.01% (0.1 mg/gram) 1 g vaginal 2XW #42.5 grams 06/28/24 vaginal cream levothyroxine 75 mcg tablet 75 mcg PO DAILY #90 tabs 06/28/24 lisinopril 20 mg tablet 20 mg PO DAILY #90 tabs 06/28/24 nitrofurantoin macrocrystal 50 mg 50 mg PO DAILY PRN UTI #30 caps 06/28/24 capsule nystatin 100,000 unit/mL oral 500,000 unit (5 mL) buccal QID 06/28/24 suspension oral thrush #60 mL valacyclovir 500 mg tablet 500 mg PO BID PRN Break out #30 06/28/24 (Valtrex) tabs amoxicillin 875 mg-potassium 1 tab PO Q8H 10 days #30 tabs 07/03/24 clavulanate 125 mg tablet Allergies Allergy/AdvReac Type Severity Reaction Status Date / Time diphenhydramine AdvReac Intermediate 'Almost Verified 06/28/24 08:54 [From Benadryl] Hallucinating Review of Systems <Emma Mckeon PA-C - Last Filed: 07/03/24 15:25> Constitutional Constitutional: Denies chills, Denies fatigue, Reports fever(s), Denies frequent falls, Denies lethargy and Denies weakness Eyes Eyes: Denies change in vision, Denies eye discharge, Denies irritation and Denies loss of vision ENT Ears, Nose, Mouth, and Throat: Denies change in voice, Reports dizziness, Denies neck pain, Denies sore throat and Denies throat swelling Cardiovascular Cardiovascular: Denies chest pain, Denies irregular heart rhythm, Denies lightheadedness, Denies palpitations, Denies dyspnea, Denies dyspnea on exertion and Denies orthopnea Respiratory Respiratory: Denies cough, Denies dyspnea, Denies dyspnea on exertion and Denies wheezing Gastrointestinal Gastrointestinal: Reports abdominal pain, Denies change in bowel habits, Reports diarrhea, Reports nausea and Denies vomiting Musculoskeletal Musculoskeletal: Denies neck pain and Denies numbness Integumentary/Breasts Skin/Breast: Denies pruritus, Denies erythema, Denies rash and Denies wounds Neurologic Neurologic: Denies behavioral changes, Denies confusion, Reports dizziness, Denies frequent falls, Denies loss of vision, Denies numbness and Denies weakness Psychiatric Psychiatric: Denies anxiety, Denies behavioral changes, Denies confusion, Denies depression, Denies homicidal ideation and Denies suicidal ideation Endocrine Endocrine: Denies fatigue, Denies flushing and Denies palpitations Hematologic/Lymphatic Hematologic/Lymphatic: Denies easy bruising Allergic/Immunologic Allergic/Immunologic: Denies urticaria, Denies throat swelling and Denies wheezing Patient History <Emma Mckeon PA-C - Last Filed: 07/03/24 15:25> Medical History (Updated 07/03/24 @ 12:45 by Emma Mckeon PA-C) BPPV (benign paroxysmal positional vertigo) History of colonic polyps History of kidney stones Recurrent UTI Mixed hyperlipidemia Oral thrush Acquired hypothyroidism Essential hypertension Diverticulitis Mumps (~1954) Osteopenia (~1999) Measles (~1957) Chicken pox (~1954) Colon polyps (~1998) History of herpes simplex infection (~1999) Pelvic relaxation Diverticulitis of intestine with perforation and abscess (~2019) No active medical problems Neck discomfort Surgical History Status post right partial knee replacement History of surgery (01/12/21) H/O ileostomy Anesthesia History of colon surgery (~05/20/20) History of surgery Hx of ectopic (~1978) H/O: hysterectomy (~1991) Family History Father Cancer Hypertension Mother Hypertension Osteoporosis COPD (chronic obstructive pulmonary disease) Brother Diabetes mellitus Sister Hypertension Osteopenia Grandmother Hypertension Social History household members: spouse Smoking Status: Never smoker alcohol intake: current Smoking Status: Never smoker alcohol intake frequency: a few times a week Substance Use Type: does not use Exam <Emma Mckeon PA-C - Last Filed: 07/03/24 15:25> Narrative Exam Narrative: Const General:?cooperative, healthy appearing and comfortable [facility] Head:?normal to inspection Ears:?hearing grossly normal bilaterally Nose:?external nose normal Face and sinus:?normal facial exam and sinuses nontender Mouth:?oral mucosae normal Throat:?posterior oropharynx normal Eyes General:?appearance normal, both eyes and all related structures Neck Neck:?normal visual inspection and no lymphadenopathy noted Resp Effort & Inspection:?normal respiratory effort Auscultation:?clear to auscultation bilaterally Cardio Rate:?regular rate Rhythm:?regular rhythm GI Abdomen is soft, nondistended, tender to palpation in the left lower quadrant. There is no CVA tenderness. Neuro General:?patient alert, patient awake and patient oriented x3 Initial Vital Signs Initial Vital Signs: Vital Signs Pulse Rate 72 07/03/24 10:29 Blood Pressure 142/63 H 07/03/24 10:29 Pulse Oximetry 98 07/03/24 10:29 <Raisa Diaz DO - Last Filed: 07/03/24 18:12> Initial Vital Signs Initial Vital Signs: Vital Signs Pulse Rate 72 07/03/24 10:29 Blood Pressure 142/63 H 07/03/24 10:29 Pulse Oximetry 98 07/03/24 10:29 Course <Emma Mckeon PA-C - Last Filed: 07/03/24 15:25> Orders Ordered: ED Orders 07/03/24 10:34 EKG-12 Lead Stat 07/03/24 10:36 Complete Blood Count AUTO DIFF Stat Comprehensive Metabolic Panel Stat Lipase Stat 07/03/24 10:51 Urine Culture Stat Urine Microscopic Stat 07/03/24 11:37 CT abdomen pelvis w con Stat Discontinued Medications Sodium Chloride (Normal Saline 0.9%) 1,000 mls @ 1,000 mls/hr IV BOLUS ONE Stop: 07/03/24 12:36 Last Infusion: 07/03/24 12:48 Dose: Infused Documented By: Admin: 07/03/24 11:59 Dose: 1,000 mls/hr Documented By: KATIE Ondansetron HCl (Ondansetron 4 Mg/2 Ml Inj) 4 mg IV NOW PRN PRN Reason: Nausea And Vomiting Ondansetron HCl (Ondansetron 4 Mg Odt) 4 mg PO NOW PRN PRN Reason: Nausea And Vomiting Vital Signs Vital signs: Vital Signs - 8 hr 07/03/24 10:29 07/03/24 10:29 07/03/24 10:30 Temperature Pulse Rate 72 71 Respiratory Rate Blood Pressure 142/63 H Pulse Oximetry 98 98 Oxygen Delivery Method 07/03/24 10:31 07/03/24 11:00 07/03/24 11:30 Temperature 97.8 F Pulse Rate 71 66 68 Respiratory Rate 14 Blood Pressure 142/63 H Pulse Oximetry 98 97 98 Oxygen Delivery Method Room Air 07/03/24 11:51 07/03/24 11:51 07/03/24 12:00 Temperature Pulse Rate 71 68 Respiratory Rate Blood Pressure 139/63 Pulse Oximetry 97 98 Oxygen Delivery Method 07/03/24 12:00 07/03/24 12:30 07/03/24 12:30 Temperature Pulse Rate 69 Respiratory Rate Blood Pressure 120/59 L 126/58 L Pulse Oximetry 97 Oxygen Delivery Method <Raisa Diaz DO - Last Filed: 07/03/24 18:12> Orders Ordered: ED Orders 07/03/24 10:34 EKG-12 Lead Stat 07/03/24 10:36 Complete Blood Count AUTO DIFF Stat Comprehensive Metabolic Panel Stat Lipase Stat 07/03/24 10:51 Urine Culture Stat Urine Microscopic Stat 07/03/24 11:37 CT abdomen pelvis w con Stat Discontinued Medications Sodium Chloride (Normal Saline 0.9%) 1,000 mls @ 1,000 mls/hr IV BOLUS ONE Stop: 07/03/24 12:36 Last Infusion: 07/03/24 12:48 Dose: Infused Documented By: Admin: 07/03/24 11:59 Dose: 1,000 mls/hr Documented By: AKTIE Ondansetron HCl (Ondansetron 4 Mg/2 Ml Inj) 4 mg IV NOW PRN PRN Reason: Nausea And Vomiting Ondansetron HCl (Ondansetron 4 Mg Odt) 4 mg PO NOW PRN PRN Reason: Nausea And Vomiting Vital Signs Vital signs: Vital Signs - 8 hr 07/03/24 10:29 07/03/24 10:29 07/03/24 10:30 Temperature Pulse Rate 72 71 Respiratory Rate Blood Pressure 142/63 H Pulse Oximetry 98 98 Oxygen Delivery Method 07/03/24 10:31 07/03/24 11:00 07/03/24 11:30 Temperature 97.8 F Pulse Rate 71 66 68 Respiratory Rate 14 Blood Pressure 142/63 H Pulse Oximetry 98 97 98 Oxygen Delivery Method Room Air 07/03/24 11:51 07/03/24 11:51 07/03/24 12:00 Temperature Pulse Rate 71 68 Respiratory Rate Blood Pressure 139/63 Pulse Oximetry 97 98 Oxygen Delivery Method 07/03/24 12:00 07/03/24 12:30 07/03/24 12:30 Temperature Pulse Rate 69 Respiratory Rate Blood Pressure 120/59 L 126/58 L Pulse Oximetry 97 Oxygen Delivery Method MDM - Abdominal Pain <Emma Mckeon PA-C - Last Filed: 07/03/24 15:25> Lab Data 07/03/24 10:36 07/03/24 10:36 Labs: Lab Results 07/03/24 07/03/24 Range/Units 10:36 10:51 WBC 9.3 (4.5-11.0) X10^3/uL RBC 4.15 (4.0-5.2) X10^6/uL Hgb 12.8 (12.0-16.0) g/dL Hct 38.0 (36-46) % MCV 91.5 (80-100) fL MCH 30.9 (26-34) PG MCHC 33.8 (30-36) % RDW 13.0 (11.6-14.8) % Plt Count 254 (150-400) X10^3/uL Neut % (Auto) 68.9 (50-75) % Lymph % (Auto) 22.0 L (25-40) % [place] % (Auto) 7.4 (3-14) % Eos % (Auto) 1.1 L (2-4) % Baso % (Auto) 0.6 (0-2) % Neut # (Auto) 6400 (3414-3744) /uL Lymph # (Auto) 2000 (2529-9534) /uL [place] # (Auto) 700 (0-900) /uL Eos # (Auto) 100 (0-450) /uL Baso # (Auto) 100 (0-100) /uL Sodium 135 L (137-145) mmol/L Potassium 3.9 (3.4-5.1) mmol/L Chloride 104 (98-107) mmol/L Carbon Dioxide 22 (22-32) mmol/L BUN 23 H (7-17) mg/dL Creatinine 1.12 H (0.52-1.04) mg/dL Estimated GFR 52 L (>60) mL/min BUN/Creatinine Ratio 20.5 (6-22) Glucose 113 H (80-110) mg/dL Calcium 9.4 (8.4-10.2) mg/dL Total Bilirubin 0.8 (0.2-1.3) mg/dL AST 28 (14-36) IU/L ALT 20 (<35) IU/L Alkaline Phosphatase 90 (38-126) U/L Total Protein 7.4 (6.3-8.2) g/dL Albumin 4.0 (3.5-5.0) g/dL Globulin 3.4 (1.7-4.1) g/dL Albumin/Globulin Ratio 1.2 (1.0-2.8) Lipase 76 (23-300) U/L Urine RBC 1-5/hpf (0-5/HPF) Urine WBC 5-10/hpf H (0-5/HPF) Ur Squamous Epith Cells 0-1 /hpf D (0-5/HPF) Urine Bacteria Moderate (10-30) H (None) Ur Culture Indicated? Specimen cultured Vol Urine Centrifuged 10ml (spun) Point of care testing: Urine Dip Bedside Urine Glucose Negative Bedside Urine Bilirubin - Negative Bedside Urine Ketone - Negative Urine Specific [place] 1.005 Bedside Urine Occult Blood +/- Bedside Urine pH 6.0 Bedside Urine Protein - Negative Bedside Urine Urobilinogen - Negative Bedside Urine Nitrite - Negative Bedside Urine Leukocytes ++ 125 Esterase MDM Narrative Medical decision making narrative: 73-year-old female with past medical history complicated diverticulitis with perforation, status post partial colectomy, hyperlipidemia, hypertension, hypothyroidism, recurrent UTIs presents to the ED with 5 days of lower abdominal pain, diarrhea. Concern for diverticulitis versus gastroenteritis versus nephrolithiasis versus UTI versus other intra-abdominal pathology versus other. Obtained labs, UA, CT abdomen pelvis. Urine is positive for leukocyte esterase, WBCs. Kidney function somewhat lower than baseline with creatinine at 1.12, BUN 23, estimated GFR 52. All other labs within normal limits. CT abdomen pelvis shows acute uncomplicated diverticulitis involving the rectum. There are no identifiable renal stones. Previous left ureteral obstruction by stone has resolved. Patient was given a 1 L bolus of IV fluids. Discussed findings with patient. Prescribed antibiotics cover both diverticulitis as well as UTI. Recommend follow-up with PCP. Recommend bowel rest, clear fluid diet, advancing diet over the next several days. ED return precautions were discussed with patient. Patient verbalized understanding. Medical records reviewed: Yes <Raisa Diaz DO - Last Filed: 07/03/24 18:12> Lab Data Labs: Lab Results 07/03/24 07/03/24 Range/Units 10:36 10:51 WBC 9.3 (4.5-11.0) X10^3/uL RBC 4.15 (4.0-5.2) X10^6/uL Hgb 12.8 (12.0-16.0) g/dL Hct 38.0 (36-46) % MCV 91.5 (80-100) fL MCH 30.9 (26-34) PG MCHC 33.8 (30-36) % RDW 13.0 (11.6-14.8) % Plt Count 254 (150-400) X10^3/uL Neut % (Auto) 68.9 (50-75) % Lymph % (Auto) 22.0 L (25-40) % [place] % (Auto) 7.4 (3-14) % Eos % (Auto) 1.1 L (2-4) % Baso % (Auto) 0.6 (0-2) % Neut # (Auto) 6400 (8370-3974) /uL Lymph # (Auto) 2000 (7045-3393) /uL [place] # (Auto) 700 (0-900) /uL Eos # (Auto) 100 (0-450) /uL Baso # (Auto) 100 (0-100) /uL Sodium 135 L (137-145) mmol/L Potassium 3.9 (3.4-5.1) mmol/L Chloride 104 (98-107) mmol/L Carbon Dioxide 22 (22-32) mmol/L BUN 23 H (7-17) mg/dL Creatinine 1.12 H (0.52-1.04) mg/dL Estimated GFR 52 L (>60) mL/min BUN/Creatinine Ratio 20.5 (6-22) Glucose 113 H (80-110) mg/dL Calcium 9.4 (8.4-10.2) mg/dL Total Bilirubin 0.8 (0.2-1.3) mg/dL AST 28 (14-36) IU/L ALT 20 (<35) IU/L Alkaline Phosphatase 90 (38-126) U/L Total Protein 7.4 (6.3-8.2) g/dL Albumin 4.0 (3.5-5.0) g/dL Globulin 3.4 (1.7-4.1) g/dL Albumin/Globulin Ratio 1.2 (1.0-2.8) Lipase 76 (23-300) U/L Urine RBC 1-5/hpf (0-5/HPF) Urine WBC 5-10/hpf H (0-5/HPF) Ur Squamous Epith Cells 0-1 /hpf D (0-5/HPF) Urine Bacteria Moderate (10-30) H (None) Ur Culture Indicated? Specimen cultured Vol Urine Centrifuged 10ml (spun) Point of care testing: Urine Dip Bedside Urine Glucose Negative Bedside Urine Bilirubin - Negative Bedside Urine Ketone - Negative Urine Specific [place] 1.005 Bedside Urine Occult Blood +/- Bedside Urine pH 6.0 Bedside Urine Protein - Negative Bedside Urine Urobilinogen - Negative Bedside Urine Nitrite - Negative Bedside Urine Leukocytes ++ 125 Esterase Discharge Plan Departure Patient Disposition: Home Clinical Impression: Diverticulitis Instructions: Diverticulitis Activity Restrictions/Additional Instructions: You were evaluated in the ED today for lower abdominal pain. Your urine is positive for a urinary tract infection. Your CT scan did show uncomplicated diverticulitis. You are being prescribed an antibiotic to address both the UTI as well as the diverticulitis. Please take it as prescribed. It is also recommended that you start with a bowel rest for the diverticulitis which consists of clear liquids for the 1st 2-3 days, followed by slowly advancing the diet to a normal diet. Please follow-up with Dr. Marcus regarding your home blood pressure fluctuations. Your blood pressure was stable in the ED. Return to the ED if you have worsening symptoms. Prescriptions: New amoxicillin-pot clavulanate 875-125 mg tablet 1 tab PO Q8H 10 Days Qty: 30 0RF No Action calcium carbonate [Calcium 500] 500 mg calcium (1,250 mg) tablet 500 mg PO BID aspirin 81 mg tablet,chewable 81 mg PO DAILY cholecalciferol (vitamin D3) 10 mcg (400 unit) capsule 10 mcg PO DAILY ascorbate calcium (vitamin C) 500 mg tablet 500 mg PO DAILY nitrofurantoin macrocrystal 50 mg capsule 50 mg PO DAILY PRN (Reason: UTI) Qty: 30 5RF Rx Instructions: must administer with a meal/food valacyclovir [Valtrex] 500 mg tablet 500 mg PO BID PRN (Reason: Break out) Qty: 30 11RF lisinopril 20 mg tablet 20 mg PO DAILY Qty: 90 3RF levothyroxine 75 mcg tablet 75 mcg PO DAILY Qty: 90 3RF amlodipine 2.5 mg tablet 2.5 mg PO DAILY Qty: 90 3RF estradiol 0.01 % (0.1 mg/gram) cream 1 g vaginal 2XW Qty: 42.5 3RF nystatin 100,000 unit/mL suspension 500,000 unit BUCCAL QID Qty: 60 1RF multivitamin Tablet 1 tab PO DAILY Referrals: Justo Marcus MD [Primary Care Provider] - Stand Alone Forms: Patient Portal/API ED Sign-out <Raisa Diaz DO - Last Filed: 07/03/24 18:12> Cosign ED Attending Cosignature Attestation: I was immediately available in the department for consultation.
--- NOTE | 2024-07-03 11:37 | DI.CT.S_ITS ---
PROCEDURE: CT ABDOMEN PELVIS W CON INDICATIONS: LLQ pain TECHNIQUE: After the administration of intravenous contrast, axial sections acquired from the lung bases to the pubic symphysis. Coronal and sagittal reformats were performed. For radiation dose reduction, the following was used: automated exposure control, adjustment of mA and/or kV according to patient size. COMPARISON: [facility], CT, CT ABDOMEN PELVIS W CON, 02/26/2023, 10:41. FINDINGS: Image quality: Diagnostic. Lower Chest: No significant findings. ABDOMEN: Liver: No solid mass. Gallbladder: No radiopaque gallstones or wall thickening. Biliary ducts: No biliary dilation. Pancreas: No ductal dilation. Spleen: Size is within normal limits. Adrenal Glands: No adrenal nodules. Kidneys and Ureters: No hydronephrosis. No solid mass. No complex renal cystic lesion which requires follow up. Resolution of previous left ureteral obstruction. Stomach and Bowel: There is acute diverticulitis involving a mid to upper rectal diverticulum with associated wall edema and inflammatory change in the adjacent fat. Reference coronal reformat image 38 of series 3. No free air or free fluid or abscess. Peritoneum: No abnormal intraperitoneal fluid. No free air. Ventral Wall: No significant ventral hernia. Abdominal Nodes: No retroperitoneal or mesenteric adenopathy by size criteria. Vessels: Aorta and inferior vena cava are normal in size. PELVIS: Pelvic Organs: Unremarkable. Bladder: No bladder wall thickening, accounting for underdistention. Pelvic Nodes: No enlarged lymph nodes. Miscellaneous: No inguinal hernias are seen. Bones: No aggressive osseous abnormality. IMPRESSION: 1. Acute non complicated diverticulitis involving the rectum. 2. There are no identifiable renal stones. Previous left ureteral obstruction by stone has resolved. Dictated by: Eddy Christopher M.D. on 07/03/2024 at 12:11 Approved by: Eddy Christopher M.D. on 07/03/2024 at 12:16
[2024-07-03] MEDS: SODIUM CHLORIDE 0.9% 1,000 ML 1000 ML IV (11:59)
== END 2024-07-03 12:54 | disposition home or self-care (01) ==
PROVIDERS: Emergency Medicine; Emergency Provider Student in an Organized Health Care Education/Training Program; PCP Internal Medicine
DX: K57.92 Diverticulitis of intestine, part unspecified, without perforation or abscess without bleeding (principal); Z79.899 Other long term (current) drug therapy
CPT/HCPCS: 36415; 74177; 80053; 81003; 81015; 83690; 85025; 87077; 87086; 87186; 96360; 99284; Q9967

== ENCOUNTER → 2024-09-03 10:58 | Outpatient (CLI) | payer MEDICARE, OTHER, SELFPAY ==
[2022-01-16 13:25] VITALS: BMI 25.6
--- NOTE | 2024-09-03 10:59 | DI.RAD.S_ITS ---
PROCEDURE: XR DEXA AXIAL SKELETON INDICATIONS: osteopenia COMPARISON: , CR, DEXA COMPLETE, 04/21/2022, 9:15. FINDINGS: Lumbar Spine: Bone mineral density 0.86 g/cm2, T score -1.7, previously -1.6. Left Hip: Bone mineral density 0.81 g/cm2, T score -1.1, previously -1.2. Left Femoral Neck: Bone mineral density 0.60 g/cm2, T score -2.3, previously -2.3. Right Hip: Bone mineral density 0.76 g/cm2, T score -1.5,. Right Femoral Neck: Bone mineral density 0.62 g/cm2, T score -2.1,. Fracture Risk Calculation (when applicable): 10-year fracture risk of a major osteoporotic fracture 15% percent and of a hip fracture 4.2% percent. (T score greater or equal to -1.0 to: NORMAL) (T score from -1.1 to -2.4: OSTEOPENIA) (T score less than or equal to -2.5: OSTEOPOROSIS) IMPRESSION: Osteopenia with fracture risk calculations as above. The left hip and L-spine T-scores are similar to prior. Follow-up guidelines as follows: Osteoporosis: Consider a repeat DEXA and Vertebral Fracture Assessment (VFA) exam in 2 years or sooner if medically necessary, to reassess this patient's status. Osteopenia: Consider a repeat DEXA in 2-3 years to reassess this patient's status, or if there is a new clinical indication. Normal: Consider a repeat DEXA in 5 years or sooner, or if there is a new clinical indication. All treatment decisions require clinical judgment and consideration of individual patient factors, including patient preferences, comorbidities, previous drug use, risk factors not captured in the FRAX model (e.g., frailty, falls, vitamin D deficiency, increased bone turnover, interval significant decline in bone density ) and possible under- or over-estimation of fracture risk by FRAX. In addition, the NOF Guide recommends that FDA-approved medical therapies be considered in postmenopausal women and men age >= 50 years with a: * Hip or vertebral (clinical or morphometric) fracture * T-score of <=-2.5 at the spine or hip * Ten-year fracture probability by FRAX of >= 3% for hip fracture or >=20% for major osteoporotic fracture. People with diagnosed cases of osteoporosis or at high risk for fracture should have regular bone mineral density tests. For patients eligible for Medicare, routine testing is allowed once every 2 years. The testing frequency can be increased to one year for patients who have rapidly progressing disease, those who are receiving or discontinuing medical therapy to restore bone mass, or have additional risk factors. Dictated by: Tim Muller M.D. on 09/03/2024 at 12:57 Approved by: Tim Muller M.D. on 09/03/2024 at 12:59
== END ==
LOC: RAD 10:58
PROVIDERS: PCP Internal Medicine; Referring Provider Internal Medicine; Visit Provider Internal Medicine
DX: M85.89 Other specified disorders of bone density and structure, multiple sites (principal)
CPT/HCPCS: 77080

== ENCOUNTER → 2024-10-19 10:07 | Outpatient (CLI) | payer MEDICARE, OTHER, SELFPAY ==
[2022-01-16 13:25] VITALS: BMI 25.6
[2024-10-19 11:16] LABS: Appearance Urine UA CLEAR; Bilirubin Urine UA NEGATIVE (NEGATIVE); Color Urine UA YELLOW; Glucose Urine UA NEGATIVE (Negative); Ketones Urine UA NEGATIVE (NEGATIVE); Leukocyte Esterase Urine UA NEGATIVE (NEGATIVE); Nitrite Urine UA POSITIVE (Negative); Occult Blood Urine UA 1+ (Negative); Protein Urine UA NEGATIVE (Negative); Specific Gravity Urine UA <=1.005 (1.000-1.035); Urobilinogen Urine UA 0.2 E.U./dL (0.2)
[2024-10-19 11:46] LABS: Bacteria Urine Many (>30); RBC Urine 0-1/HPF (0-5/HPF); Squamous Epithelial Cell Urine 1-5 /HPF (0-5/HPF); Urine Volume 10mL (spun); WBC Urine 1-5/HPF (0-5/HPF)
[2024-10-19 11:47] LABS: Culture Indicated Urine Specimen Cultured
== END ==
LOC: LAB 10:08
PROVIDERS: PCP Internal Medicine; Referring Provider Internal Medicine; Visit Provider Internal Medicine
DX: N39.0 Urinary tract infection, site not specified (principal); R35.0 Frequency of micturition
CPT/HCPCS: 81001; 87077; 87086

== ENCOUNTER → 2025-05-07 15:04 | Outpatient (CLI) | payer MEDICARE, OTHER, SELFPAY ==
[2022-01-16 13:25] VITALS: BMI 25.6
[2025-05-07 15:36] LABS: Appearance Urine UA CLEAR; Bilirubin Urine UA NEGATIVE (NEGATIVE); Color Urine UA YELLOW; Glucose Urine UA NEGATIVE (Negative); Ketones Urine UA NEGATIVE (NEGATIVE); Leukocyte Esterase Urine UA NEGATIVE (NEGATIVE); Nitrite Urine UA NEGATIVE (Negative); Occult Blood Urine UA NEGATIVE (Negative); Protein Urine UA NEGATIVE (Negative); Specific Gravity Urine UA 1.010 (1.000-1.035); Urobilinogen Urine UA 0.2 E.U./dL (0.2)
[2025-05-07 15:38] LABS: pH Urine UA 6.0 (4.5-8.0)
[2025-05-07 15:44] LABS: Culture Indicated Urine Cult Not Indicated
== END ==
PROVIDERS: PCP Internal Medicine; Referring Provider Internal Medicine; Visit Provider Internal Medicine
DX: N39.0 Urinary tract infection, site not specified (principal); R35.0 Frequency of micturition
CPT/HCPCS: 81001

== ENCOUNTER → 2025-07-09 11:35 | Outpatient (CLI) | payer MEDICARE, OTHER, SELFPAY ==
[2022-01-16 13:25] VITALS: BMI 25.6
[2025-07-09 12:29] LABS: Blood Urea Nitrogen 23 mg/dL (7-17); Calcium 9.8 mg/dL (8.4-10.2); Carbon Dioxide 26 mmol/L (22-32); Chloride 104 mmol/L (98-107); Estimated Glomerular Filt Rate 59 mL/min (>60); Glucose 95 mg/dL (70-99); HEMOLYSIS < 15 (0-50); Potassium 4.6 mmol/L (3.4-5.1); Sodium 138 mmol/L (137-145)
[2025-07-09 13:02] LABS: TSH w/ Reflex to FT4 1.67 uIU/mL (0.47-4.68)
== END ==
PROVIDERS: PCP Internal Medicine; Referring Provider Internal Medicine; Visit Provider Internal Medicine
DX: E03.9 Hypothyroidism, unspecified (principal); I10 Essential (primary) hypertension
CPT/HCPCS: 36415; 80048; 82043; 82570; 84443